=== PATIENT | female | born 1955 | race Caucasian/White ===

== ENCOUNTER → 2018-04-23 15:26 | Outpatient (CLI) | payer MEDICARE, SELFPAY ==
--- NOTE | 2018-04-23 15:32 | NVE_ITS ---
Venous Exam Indications: 729.5 Pain in limb. IMPRESSIONS 1. There is no evidence of significant reflux. 2. No evidence of deep or superficial vein thrombosis involving the veins of the left upper extremity Left upper extremity venous duplex. Doppler flow study including spectral analysis, color and moura scale imaging. Location: Vascular laboratory. Patient status: Outpatient. Incidental findings: A cyst/mass is noted incidentally on the left antecubital area. consistent with area of pain Tables: Venous flow and imaging: + + + Location Flow properties + + + Left internal jugular Normal phasicity; spontaneous; compressible + + + Left subclavian Normal phasicity; spontaneous; normal augmentation; compressible + + + Left axillary Normal phasicity; spontaneous; normal augmentation; compressible + + + Left brachial Normal phasicity; spontaneous; normal augmentation; compressible + + + Left cephalic Normal phasicity; spontaneous; normal augmentation; compressible + + + Left basilic Normal phasicity; spontaneous ; normal augmentation; compressible + + + Left radial Compressible + + + Left ulnar Compressible + + + (Report amended ) Electronically signed by: Dakota Fisher [id number]
== END ==
PROVIDERS: PCP Nurse Practitioner; Visit Provider Nurse Practitioner
DX: M79.602 Pain in left arm (principal); M79.89 Other specified soft tissue disorders
CPT/HCPCS: 93971

== ENCOUNTER → 2018-05-09 09:47 | Outpatient (CLI) | payer MEDICARE, SELFPAY ==
--- NOTE | 2018-05-09 09:56 | US_ITS ---
US extremity LT limited HISTORY: Left forearm pain and swelling with possible cystic lesion seen on vascular ultrasound ITS.REASON: LEFT ARM SWELLING ORDERING PHYSICIAN: Yante Daley PATIENT AGE: 63 years COMPARISON: 04/23/2018 FINDINGS: No discrete mass is evident. The area of patient's pain corresponds to muscular tissue. No mass or cyst evident in this region. Normal echogenicity. IMPRESSION: Unremarkable left forearm ultrasound
== END ==
PROVIDERS: PCP Family Medicine; Visit Provider Nurse Practitioner
DX: M79.89 Other specified soft tissue disorders (principal)
CPT/HCPCS: 76882

== ENCOUNTER 2024-09-06 17:13 | Emergency (ER) | payer MEDICARE, SELFPAY ==
--- NOTE | 2024-09-06 17:13 | PC.NURSE ---
Citlaly Barber APRN at bedside
--- NOTE | 2024-09-06 17:19 | ECG_ITS ---
APPROVED REPORT Exam: Resting ECG HR:94 bpm ECG Measurements Heart Rate 94 AXES OR 169 P 67 QRSd 77 QRS -72 QT 325 T 65 QTc 377 Conclusion SINUS RHYTHM PATTERN CONSISTENT WITH PULMONARY DISEASE LEFT ANTERIOR FASCICULAR BLOCK [QRS AXIS <= -45, QR IN I, RS IN II] No acute STEMI Electronically signed by : CINDI RIVERA, 09/07/2024 00:46:35
[2024-09-06 17:22] VITALS: BP 122/93; PULSE 94; RESP 14; TEMP 36.5; O2SAT 94; BMI 20.2
--- NOTE | 2024-09-06 17:32 | ED_ITS ---
<Statement entered by Marla Trujillo DO - 09/07/24 00:14> I was consulted by the JIMMY, and we discussed the complexity of the problems being addressed. I approved the treatment and management plan for this patient's care in the emergency department, thus performing a substantive portion of the medical decision making. Marla Trujillo DO Discharge Plan Disposition Patient Disposition: Home, Self-Care Prescriptions Prescriptions: New dicyclomine 10 mg capsule 10 mg PO TID 7 Days Qty: 21 0RF nitrofurantoin monohyd/m-cryst [Macrobid] 100 mg capsule 100 mg PO BID 5 Days Qty: 10 0RF Rx Instructions: must administer with a meal/food No Action ondansetron HCl 4 mg tablet 4 mg PO Q6H PRN (Reason: Nausea) Patient Comments: TAKE 1 TABLET BY MOUTH EVERY 6 HOURS ondansetron HCl 4 mg tablet 4 mg PO Q6 PRN (Reason: Nausea) Patient Comments: TAKE 1 TABLET BY MOUTH EVERY 6 HOURS levothyroxine 75 mcg tablet 75 mcg PO DAILY Patient Comments: TAKE 1 TABLET BY MOUTH every morning on an empty stomach meclizine 25 mg tablet 25 mg PO BID Referrals Follow up/Referrals: Provider,Referral, MD [Referring] - See instructions Activity Restrictions/Add. Instructions Additional Instructions/Restrictions: Today you were evaluated in the emergency department for dizziness and vomiting. Please take your meclizine as prescribed and follow-up with your primary care provider. Your urine appears to be infected, please take the Macrobid for this. We will send your urine off for culture and contact you if anything needs changed. Increase your fluid intake. Please take the Bentyl as directed. Please return to the ED for any worsening of your condition. Clinical Impressions Clinical Impression: Nausea, Acute UTI Instructions Patient Instructions: DI for Nausea -- Adult Print Language Print Language: Tamaz[place] Discharge ED Provider: Marla Trujillo General Adult HPI <Velia Barber APRN - Last Filed: 09/06/24 20:21> General Chief complaint: Dizziness Stated complaint: dizziness/lightheaded x 2weeks Time Seen by Provider: 09/06/24 17:22 Mode of Arrival: EMS Source of Information: Patient Description of Symptoms (Recalled from ER Triage Doc. by RN): Patient presents with [facility]. Per EMS, patient was found on the floor. The patient adamantly denies that she fell. States she placed herself on the floor due to her dizziness. States she has a history of vertigo. States she has Meclizine at home, but was not able to take it today. Endorses nausea. Denies fevers. Denies SOB. Denies CP. States her dizziness feels like the room is spinning and states it feels like my similar episodes. History of Present Illness HPI narrative: Patient is a 69-year-old female who presents to the ED with complaints of dizziness, vomiting and nausea x 1 month. Patient states she was evaluated for this by her PCP approximately 1 month ago and given Zofran and meclizine which she states does help. Related Data Home Medications ?Medication ?Instructions ?Recorded ?Confirmed levothyroxine 75 mcg tablet 75 mcg PO DAILY 09/06/24 09/06/24 meclizine 25 mg tablet 25 mg PO BID 09/06/24 09/06/24 ondansetron HCl 4 mg tablet 4 mg PO Q6 PRN Nausea 09/06/24 09/06/24 ondansetron HCl 4 mg tablet 4 mg PO Q6H PRN Nausea 09/06/24 09/06/24 Previous Rx's ?Medication ?Instructions ?Recorded dicyclomine 10 mg capsule 10 mg PO TID 7 days #21 caps 09/06/24 nitrofurantoin 100 mg PO BID 5 days #10 caps 09/06/24 monohydrate/macrocrystals 100 mg capsule (Macrobid) Allergies Allergy/AdvReac Type Severity Reaction Status Date / Time No Known Allergies Allergy Verified 09/06/24 17:32 PFSH <Velia Barber APRN - Last Filed: 09/06/24 20:21> PFS Disclaimer: The information contained in this section may have been updated after the patient was seen, as this information can be updated by other users. Social History Smoking Status: Never smoker alcohol intake: never current occupational status: unemployed Travel in the last 8 weeks: None <Velia Barber APRN - Last Filed: 09/06/24 20:21> ROS Obtained: Yes Systems reviewed as appropriate & no additional complaints except as documented Physical Exam <Velia Barber APRN - Last Filed: 09/06/24 20:21> General General appearance: alert and in no apparent distress Head Head exam: atraumatic and normocephalic Eye Eye exam: Present normal appearance and PERRL ENT ENT exam: Present normal exam Neck Neck exam: Present normal inspection Chest Chest inspection: Present normal inspection and symmetric chest wall rise; Absent tenderness Respiratory Respiratory exam: Present normal lung sounds bilaterally Cardiovascular Cardiovascular exam: Present regular rate Abdominal Exam Abdominal exam: Present soft and normal bowel sounds; Absent tenderness Extremities Exam Extremities exam: Present normal inspection and full ROM Back Exam Back exam: Present normal inspection and full ROM Neurological Exam Neurological exam: Present alert and oriented X3 Psychiatric Psychiatric exam: Present normal affect and normal mood Skin Skin exam: Present warm and dry Medical Decision Making <Velia Barber APRN - Last Filed: 09/06/24 20:21> Medical Records Screening: Per USPSTF and CDC recommendations, given the prevalence of disease in our region, it is our hospital?s policy to screen for HIV and viral Hepatitis for all patients aged 18 and over and those with ongoing risk factors. Samuel Inquiry Pt receiving controlled substance: No Vital Signs: 09/06/24 17:22 09/06/24 17:36 09/06/24 17:45 Temperature 97.7 F Temperature Source Oral Pulse Rate 75 Pulse Rate [Radial] 94 H Respiratory Rate 14 16 Blood Pressure 105/79 L Blood Pressure [R Arm] 122/93 H Blood Pressure Mean 87 Blood Pressure Mean [R Arm] 102 Blood Pressure Source Blood Pressure Source [R Arm] Automatic Cuff Blood Pressure Position Blood Pressure Position [R Arm] Sitting 02 Sat by Pulse Oximetry 94 L 100 Oxygen Delivery Method Room Air 09/06/24 17:45 09/06/24 19:09 09/06/24 19:39 Temperature 98.2 F Temperature Source Oral Pulse Rate 70 81 74 Pulse Rate [Radial] Respiratory Rate 13 16 20 Blood Pressure 116/63 114/87 Blood Pressure [R Arm] Blood Pressure Mean Blood Pressure Mean [R Arm] Blood Pressure Source Automatic Cuff Blood Pressure Source [R Arm] Blood Pressure Position Sitting Blood Pressure Position [R Arm] 02 Sat by Pulse Oximetry 100 96 Oxygen Delivery Method Room Air Lab Data Lab Results 09/06/24 17:13: WBC 6.3, RBC 5.83 H, Hgb 13.3, Hct 42.0, MCV 72.0 L, MCH 22.8 L, MCHC 31.7 L, RDW 26.9 H*, Plt Count 694 H, MPV 9.3, Neut % (Auto) 73.1, Lymph % (Auto) 17.8, [place] % (Auto) 7.5, Eos % (Auto) 0.2, Baso % (Auto) 0.6, Neut # (Auto) 4.6, Lymph # (Auto) 1.1, [place] # (Auto) 0.5, Eos # (Auto) 0.0, Baso # (Auto) 0.0, Total Counted 100, Neutrophils % (Manual) 66, Band Neutrophils % 8, Lymphocytes % (Manual) 15, Monocytes % (Manual) 11 H, Platelet Estimate Moderate increase, RBC Morphology Not Reportable, Poikilocytosis 2+, Anisocytosis 2+, Microcytosis 1+, Target Cells 3+, Stomatocytes 2+, Sodium 132 L, Potassium 4.5, Chloride 99, Carbon Dioxide 20 L, Anion Gap 17.5 H, BUN 31 H, Creatinine 0.90, Estimated Creat Clear 40, Estimated GFR 62, Est GFR ( Amer) 75, Glucose 99, Calcium 8.7, Total Bilirubin 1.9 H, AST 67 H, ALT 59, Alkaline Phosphatase 187 H, Total Protein 6.3, Albumin 2.9 L, Globulin 3.4 H, Albumin/Globulin Ratio 0.9 L, Lipase 20 L 09/06/24 18:32: Urine Color Yellow, Urine Appearance Clear, Urine pH 6.0, Ur Specific [place] 1.020, Urine Protein 1+ A, Urine Glucose (UA) Negative, Urine Ketones 1+, Urine Blood Negative, Urine Nitrate Positive A, Urine Bilirubin 2+ A , Urine Urobilinogen 2.0, Ur Leukocyte Esterase Negative, Urine RBC None, Urine WBC 3-5, Ur Squamous Epith Cells Occasional, Urine Bacteria Trace, Hyaline Casts 10-20 09/06/24 17:13 09/06/24 17:13 Orders (Tests/Meds): ED MEDICATIONS Discontinued Medications Generic Name Dose Route Start Last Admin Trade Name Freq PRN Reason Stop Dose Admin Dicyclomine HCl 10 mg 09/06/24 17:28 09/06/24 17:38 Dicyclomine 10mg Capsule PO 09/06/24 17:29 10 mg ONCE ONE Administration Sodium Chloride 500 mls @ 999 mls/hr 09/06/24 17:28 09/06/24 17:39 Sod Chlor 0.9% 1000ml Bag IV 09/06/24 17:58 999 mls/hr .Q31M ONE Administration Meclizine HCl 25 mg 09/06/24 17:28 09/06/24 17:38 Meclizine 25mg Tablet PO 09/06/24 17:29 25 mg ONCE ONE Administration Ondansetron HCl 4 mg 09/06/24 17:28 09/06/24 17:38 Ondansetron 4mg/2ml Vial IV 09/06/24 17:29 4 mg ONCE ONE Administration ORDERS Category Date Time Status CBC w/Auto Diff [Complete Blood Count Auto Diff] Stat Lab 09/06/24 17:13 Completed CMP [Comprehensive Metabolic Panel] Stat Lab 09/06/24 17:13 Completed Lipase Stat Lab 09/06/24 17:13 Completed Urinalysis and Microscopic Stat Lab 09/06/24 18:32 Completed Urine Culture Stat Micro 09/06/24 18:32 Received Medical Decision Narrative: In summary, patient is a 69-year-old female who presents to the ED with complaints of dizziness, vomiting and nausea x 1 month. Patient states she was evaluated for this by her PCP approximately 1 month ago and given Zofran and meclizine which she states does help. Patient did not take her meclizine today. She states that for the past month she has had difficulty even keeping water down. She denies any additional complaints at this time. Denies fever, chills, bodyaches, chest pain, shortness of breath, abdominal pain, dysuria, diarrhea, constipation. Upon initial evaluation patient is alert, oriented and cooperative. She is hemodynamically stable. Her physical exam is unremarkable, abdomen is soft and nontender. Discussed with patient that we will proceed with labs, urinalysis and symptomatically managed with IVF, Zofran and meclizine. CBC unremarkable for leukocytosis, stable H&H. Platelet 694. Sodium 132, anion gap 17.5, total bili 1.9, AST 67. Urinalysis remarkable for protein, positive nitrite and bili, trace bacteria. Discussed with patient that she is dehydrated and should increase fluid intake. Advised her that her urine is most likely infected, although she has no urinary symptoms, concerned that nausea and vomiting could be related to UTI. Will treat with Macrobid, will send culture. Advised patient to take her meclizine as prescribed. Patient remains hemodynamically stable, discussed with her she will need to follow-up with her PCP within 3 to 5 days. We discussed return precautions to the ED and patient verbalized understanding. <Marla Trujillo, DO - Last Filed: 09/06/24 19:45> Vital Signs: 09/06/24 17:22 09/06/24 17:36 09/06/24 17:45 Temperature 97.7 F Temperature Source Oral Pulse Rate 75 Pulse Rate [Radial] 94 H Respiratory Rate 14 16 Blood Pressure 105/79 L Blood Pressure [R Arm] 122/93 H Blood Pressure Mean 87 Blood Pressure Mean [R Arm] 102 Blood Pressure Source Blood Pressure Source [R Arm] Automatic Cuff Blood Pressure Position Blood Pressure Position [R Arm] Sitting 02 Sat by Pulse Oximetry 94 L 100 Oxygen Delivery Method Room Air 09/06/24 17:45 09/06/24 19:09 09/06/24 19:39 Temperature 98.2 F Temperature Source Oral Pulse Rate 70 81 74 Pulse Rate [Radial] Respiratory Rate 13 16 20 Blood Pressure 116/63 114/87 Blood Pressure [R Arm] Blood Pressure Mean Blood Pressure Mean [R Arm] Blood Pressure Source Automatic Cuff Blood Pressure Source [R Arm] Blood Pressure Position Sitting Blood Pressure Position [R Arm] 02 Sat by Pulse Oximetry 100 96 Oxygen Delivery Method Room Air Lab Data Lab Results 09/06/24 17:13: WBC 6.3, RBC 5.83 H, Hgb 13.3, Hct 42.0, MCV 72.0 L, MCH 22.8 L, MCHC 31.7 L, RDW 26.9 H*, Plt Count 694 H, MPV 9.3, Neut % (Auto) 73.1, Lymph % (Auto) 17.8, [place] % (Auto) 7.5, Eos % (Auto) 0.2, Baso % (Auto) 0.6, Neut # (Auto) 4.6, Lymph # (Auto) 1.1, [place] # (Auto) 0.5, Eos # (Auto) 0.0, Baso # (Auto) 0.0, Total Counted 100, Neutrophils % (Manual) 66, Band Neutrophils % 8, Lymphocytes % (Manual) 15, Monocytes % (Manual) 11 H, Platelet Estimate Moderate increase, RBC Morphology Not Reportable, Poikilocytosis 2+, Anisocytosis 2+, Microcytosis 1+, Target Cells 3+, Stomatocytes 2+, Sodium 132 L, Potassium 4.5, Chloride 99, Carbon Dioxide 20 L, Anion Gap 17.5 H, BUN 31 H, Creatinine 0.90, Estimated Creat Clear 40, Estimated GFR 62, Est GFR ( Amer) 75, Glucose 99, Calcium 8.7, Total Bilirubin 1.9 H, AST 67 H, ALT 59, Alkaline Phosphatase 187 H, Total Protein 6.3, Albumin 2.9 L, Globulin 3.4 H, Albumin/Globulin Ratio 0.9 L, Lipase 20 L 09/06/24 18:32: Urine Color Yellow, Urine Appearance Clear, Urine pH 6.0, Ur Specific [place] 1.020, Urine Protein 1+ A, Urine Glucose (UA) Negative, Urine Ketones 1+, Urine Blood Negative, Urine Nitrate Positive A, Urine Bilirubin 2+ A , Urine Urobilinogen 2.0, Ur Leukocyte Esterase Negative, Urine RBC None, Urine WBC 3-5, Ur Squamous Epith Cells Occasional, Urine Bacteria Trace, Hyaline Casts 10-20 Orders (Tests/Meds): ED MEDICATIONS Discontinued Medications Generic Name Dose Route Start Last Admin Trade Name Freq PRN Reason Stop Dose Admin Dicyclomine HCl 10 mg 09/06/24 17:28 09/06/24 17:38 Dicyclomine 10mg Capsule PO 09/06/24 17:29 10 mg ONCE ONE Administration Sodium Chloride 500 mls @ 999 mls/hr 09/06/24 17:28 09/06/24 17:39 Sod Chlor 0.9% 1000ml Bag IV 09/06/24 17:58 999 mls/hr .Q31M ONE Administration Meclizine HCl 25 mg 09/06/24 17:28 09/06/24 17:38 Meclizine 25mg Tablet PO 09/06/24 17:29 25 mg ONCE ONE Administration Ondansetron HCl 4 mg 09/06/24 17:28 09/06/24 17:38 Ondansetron 4mg/2ml Vial IV 09/06/24 17:29 4 mg ONCE ONE Administration ORDERS Category Date Time Status CBC w/Auto Diff [Complete Blood Count Auto Diff] Stat Lab 09/06/24 17:13 Completed CMP [Comprehensive Metabolic Panel] Stat Lab 09/06/24 17:13 Completed Lipase Stat Lab 09/06/24 17:13 Completed Urinalysis and Microscopic Stat Lab 09/06/24 18:32 Completed Urine Culture Stat Micro 09/06/24 18:32 Received ECG Data Tracing #1: I reviewed this ECG and interpreted as documented below: Normal sinus rhythm with a ventricular of [address] changes concerning for ischemia ECG initial impression date: 09/06/24 ECG initial impression time: 17:20 Critical Care <Velia Barber APRN - Last Filed: 09/06/24 20:21> Critical Care Time Critical Care Time: No
[2024-09-06 17:36] VITALS: PULSE 75; RESP 16; O2SAT 100
[2024-09-06 17:37] LABS: Albumin Level 2.9 g/dl (3.5-5.0); Chloride 99 mmol/L (98-107); Potassium 4.5 mmoL/L (3.5-5.1); Sodium 132 mmol/L (136-145)
[2024-09-06] MEDS: ONDANSETRON 4MG/2ML VIAL 4 MG IV (17:38)
[2024-09-06] MEDS: DICYCLOMINE 10MG CAPSULE 10 MG PO (17:38)
[2024-09-06] MEDS: MECLIZINE 25MG TABLET 25 MG PO (17:38)
[2024-09-06 17:39] LABS: Basophils % 0.6 % (0.1-2.0); Eosinophils % 0.2 % (0.1-12.0); Hemoglobin 13.3 g/dL (12.2-16.2); Lymphocytes # 1.1 K/mm3 (0.7-4.5); Lymphocytes % 17.8 % (10-50); Mean Corpuscular HGB Conc 31.7 g/dL (31.8-35.4); Mean Corpuscular Hemoglobin 22.8 pg (27.0-31.2); Mean Platelet Volume 9.3 fl (7.4-10.4); Monocytes # 0.5 K/mm3 (0.1-1.0); Monocytes % 7.5 % (1.7-9.3); Neutrophils # 4.6 K/mm3 (1.8-7.8); Neutrophils % 73.1 % (37.0-80.0); Nucleated Red Blood Cells # 0 10^3/uL; Nucleated Red Blood Cells % 0 %; Platelet Count 694 K/mm3 (142-424); Red Blood Count 5.83 M/mm3 (4.20-5.40); Red Cell Distribution Width 26.9 % (11.5-17.5); Red Cell Distribution Width-SD 64.4 fL; White Blood Count 6.3 K/mm3 (4.8-10.8)
[2024-09-06] MEDS: 0.9 % SODIUM CHLORIDE 1000ML 500 ML 999 ML IV (17:39)
[2024-09-06 17:40] LABS: Alanine Aminotransferase 59 U/L (12-78); Albumin/Globulin Ratio 0.9 (1.1-1.8); Alkaline Phosphatase 187 U/L (38-126); Anion Gap 17.5 mEq/L (5-15); Aspartate Amino Transferase 67 U/L (14-36); Bilirubin,Total 1.9 mg/dl (0.2-1.3); Blood Urea Nitrogen 31 mg/dl (7-17); Carbon Dioxide 20 mmol/L (22.0-30.0); Creatinine Clearance Estimated 40 mL/min (50-200); Estimated Glomerular Filt Rate 62 ml/min (>60); GFR (African American) 75 ML/MIN (>60); Globulin 3.4 g/dL (1.3-3.2); Lipase 20 U/L (23-300); Total Protein,Serum 6.3 g/dl (6.3-8.2)
[2024-09-06 17:41] LABS: Calcium 8.7 mg/dl (8.4-10.2); Glucose 99 mg/dl (74-100)
[2024-09-06 17:45] VITALS: BP 105/79; PULSE 70; RESP 13; O2SAT 100
[2024-09-06 17:55] LABS: MANUAL DIFFERENTIAL MANUAL DIFFERENTIAL (MANUAL DIFF)
--- NOTE | 2024-09-06 18:12 | PC.NURSE ---
Patient states her dizziness has subsided. Patient ambulated x2 contact guard to restroom. senior geotechnical engineer assisting patient in restroom.
[2024-09-06 18:19] LABS: Neutrophils % 66 % (42-76); Total Cells Counted 100
[2024-09-06 18:20] LABS: Anisocytosis 2+; Band Neutrophils % 8 (0-8); Lymphocytes % 15 % (10-50); Monocytes % 11 % (2-9); Platelet Estimate Moderate Increase
[2024-09-06 18:21] LABS: Microcytosis 1+; Poikilocytosis 2+; Stomatocytes 2+; Target Cells 3+
[2024-09-06 18:35] LABS: Microscopic, Urine URINE MICROSCOPIC (MICROSCOPIC)
[2024-09-06 18:39] LABS: Appearance,Urine CLEAR (Clear); Blood, Urine Negative (Negative); Color,Urine YELLOW (Yellow); Glucose,Urine (UA) Negative (Negative); Ketones,Urine 1+ (Negative); Leukocyte Esterase,Urine Negative (Negative); Nitrate,Urine POSITIVE (Negative); Protein,Urine 1+ (Negative)
[2024-09-06 18:59] LABS: Bilirubin,Urine 2+ (Negative)
[2024-09-06 19:00] LABS: Bacteria,Urine Trace /lpf; Squamous Epithelial Cell,Urine Occasional #/hpf (0-5)
[2024-09-06 19:09] VITALS: BP 116/63; PULSE 81; RESP 16; O2SAT 96
--- NOTE | 2024-09-06 19:17 | PC.NURSE ---
Report received from López RN Pt resting quietly in bed Skin pink warm and dry Resp full and easy Speech clear and appropriate IV site without redness or edema
[2024-09-06 19:39] VITALS: BP 114/87; PULSE 74; RESP 20; TEMP 36.8; O2SAT 97
== END 2024-09-06 19:40 | disposition home or self-care (01) ==
PROVIDERS: Nurse Practitioner; Emergency Provider Emergency Medicine; PCP Nurse Practitioner
DX: N39.0 Urinary tract infection, site not specified (principal); E87.1 Hypo-osmolality and hyponatremia; R42 Dizziness and giddiness; R11.0 Nausea
CPT/HCPCS: 80053; 81001; 83690; 85007; 85025; 85027; 87086; 93005; 96374; 99284; J2405; J7030

== ENCOUNTER 2024-09-11 11:49 | Inpatient (IN) | payer MEDICARE, SELFPAY ==
[2024-09-11] VITALS (11 sets, daily range): BP systolic 94–139; BP diastolic 67–91; PULSE 90–123; RESP 13–24; TEMP 36.6–37; O2SAT 93–100; BMI 28.3; BMI 29.7
--- NOTE | 2024-09-11 11:57 | ECG_ITS ---
APPROVED REPORT Exam: Resting ECG HR:120 bpm ECG Measurements Heart Rate 120 AXES ME 170 P 62 QRSd 78 QRS 142 QT 305 T 58 QTc 377 Conclusion Sinus tachycardia Poor R wave progression in precordial leads Electronically signed by : JOHNATHAN VITALE, 09/11/2024 14:07:42
--- NOTE | 2024-09-11 12:07 | PC.NURSE ---
DR VITALE AT BEDSIDE
[2024-09-11 12:10] LABS: Basophils # 0.1 K/mm3 (0-0.2); Eosinophils % 0.1 % (0.1-12.0); Hematocrit 41.9 % (37.0-47.0); Hemoglobin 12.8 g/dL (12.2-16.2); Lymphocytes % 13.9 % (10-50); Mean Corpuscular HGB Conc 30.5 g/dL (31.8-35.4); Mean Corpuscular Hemoglobin 23.8 pg (27.0-31.2); Mean Platelet Volume 9.6 fl (7.4-10.4); Monocytes # 0.3 K/mm3 (0.1-1.0); Monocytes % 4.5 % (1.7-9.3); Neutrophils # 5.8 K/mm3 (1.8-7.8); Neutrophils % 79.5 % (37.0-80.0); Nucleated Red Blood Cells # 0.07 10^3/uL; Platelet Count 316 K/mm3 (142-424); Red Blood Count 5.37 M/mm3 (4.20-5.40); Red Cell Distribution Width 24.6 % (11.5-17.5); Red Cell Distribution Width-SD 63.4 fL; White Blood Count 7.3 K/mm3 (4.8-10.8)
--- NOTE | 2024-09-11 12:17 | HMH.EDGENADL ---
Discharge Plan Disposition Patient Disposition: Admitted Chief Complaint: Weakness Prescriptions Prescriptions: No Action ondansetron HCl 4 mg tablet 4 mg PO Q6H PRN (Reason: Nausea) Patient Comments: TAKE 1 TABLET BY MOUTH EVERY 6 HOURS ondansetron HCl 4 mg tablet 4 mg PO Q6 PRN (Reason: Nausea) Patient Comments: TAKE 1 TABLET BY MOUTH EVERY 6 HOURS levothyroxine 75 mcg tablet 75 mcg PO DAILY Patient Comments: TAKE 1 TABLET BY MOUTH every morning on an empty stomach meclizine 25 mg tablet 25 mg PO BID dicyclomine 10 mg capsule 10 mg PO TID 7 Days Qty: 21 0RF nitrofurantoin monohyd/m-cryst [Macrobid] 100 mg capsule 100 mg PO BID 5 Days Qty: 10 0RF Rx Instructions: must administer with a meal/food Referrals Follow up/Referrals: Marlyn Daley APRN [Primary Care Provider] - See instructions Clinical Impressions Clinical Impression: Complete obstruction of small intestine, Sepsis, Acute dehydration, Urinary tract infection Print Language Print Language: Jordanian Discharge ED Provider: Surinder Jerry General Adult HPI General Chief complaint: Weakness Stated complaint: weakness Time Seen by Provider: 09/11/24 11:54 Mode of Arrival: EMS Source of Information: Patient and EMS Description of Symptoms (Recalled from ER Triage Doc. by RN): Patient presents to ED with increased weakness. Patient states she was dx with an UTI on Saturday and finished up her antibiotics today. Today patient was walking to the couch and states her legs gave out on her and states she did not fall or hit her head. History of Present Illness HPI narrative: Please note that above description of symptoms, in this electronic medical record under categorization of recalled from ER triage doctor by RN are reflective of an initial nursing assessment, however, is not reflective of my full history and physical exam that was personally taken and clarified. Consequentially, this preceding description of symptoms, which may include the patient's categorized chief complaint in the EMR, do not reflect my personal clinical impression, and the ultimate description of history of present illness and patient stated complaints should be deferred to this section of the note. Unless stated otherwise or congruent with this section of the note, additional signs, symptoms, or incongruence should be interpreted as inaccurate with my clinical impression. Related Data Home Medications ?Medication ?Instructions ?Recorded ?Confirmed levothyroxine 75 mcg tablet 75 mcg PO DAILY 09/06/24 09/06/24 meclizine 25 mg tablet 25 mg PO BID 09/06/24 09/06/24 ondansetron HCl 4 mg tablet 4 mg PO Q6 PRN Nausea 09/06/24 09/06/24 ondansetron HCl 4 mg tablet 4 mg PO Q6H PRN Nausea 09/06/24 09/06/24 Previous Rx's ?Medication ?Instructions ?Recorded dicyclomine 10 mg capsule 10 mg PO TID 7 days #21 caps 09/06/24 nitrofurantoin 100 mg PO BID 5 days #10 caps 09/06/24 monohydrate/macrocrystals 100 mg capsule (Macrobid) Allergies Allergy/AdvReac Type Severity Reaction Status Date / Time No Known Allergies Allergy Verified 09/06/24 17:32 [facility] Disclaimer: The information contained in this section may have been updated after the patient was seen, as this information can be updated by other users. Social History (Updated 09/06/24 @ 20:21 by Velia Barber APRN) Smoking Status: Never smoker alcohol intake: never current occupational status: unemployed Travel in the last 8 weeks: None Have you lived/traveled outside [place] in past 30 days?: No Contact w/someone who lives/traveled outside US past 30 days?: No Exposure to someone with infectious disease in past 14 days?: No Do you have a fever (greater than 100.4 F or 38 C)?: No Have you tested positive for COVID-19: No Exposed to someone with COVID-19 in past 14 days?: No Do you have a sore throat?: No Do you have a cough?: No Do you have any weakness?: Yes Do you have any diarrhea?: No Are you experiencing any unusual bleeding?: No Do you have any muscle aches/pain?: No Do you have any abdominal pain?: No Are you experiencing loss of taste or smell?: No ROS Obtained: Yes All systems reviewed & no additional complaints except as documented Physical Exam General General appearance: alert Comment: Ill-appearing Head Head exam: atraumatic and normocephalic Eye Eye exam: Present normal appearance, PERRL and EOMI ENT ENT exam: Present mucous membranes dry Neck Neck exam: Present normal inspection, full ROM and trachea midline Respiratory Respiratory exam: Present normal lung sounds bilaterally; Absent respiratory distress, wheezes, stridor, accessory muscle use or prolonged expiratory phase Cardiovascular Cardiovascular exam: Present normal rhythm, tachycardia and other (Pulses equal symmetric in upper and lower extremities) Abdominal Exam Abdominal exam: Present soft; Absent distention, tenderness, guarding, rebound, rigidity or pulsatile mass Extremities Exam Extremities exam: Present edema (Bilateral, minimal) Neurological Exam Neurological exam: Present alert, oriented X3 and CN II-XII intact; Absent motor sensory deficit Skin Skin exam: Present warm, dry and pallor; Absent diaphoresis or erythema Medical Decision Making Medical Records Medical records reviewed: Yes I reviewed the patient's medical records. Screening: Per USPSTF and CDC recommendations, given the prevalence of disease in our region, it is our hospital?s policy to screen for HIV and viral Hepatitis for all patients aged 18 and over and those with ongoing risk factors. Samuel Inquiry Pt receiving controlled substance: No Samuel was queried for this patient: No Vital Signs: 09/11/24 11:54 09/11/24 11:55 09/11/24 12:06 Temperature 98.6 F Temperature Source Oral Pulse Rate 123 H 119 H Pulse Rate [Right Brachial] 121 H Respiratory Rate 24 20 17 Blood Pressure 94/67 L 99/71 L Blood Pressure [Right Arm] 94/67 L Blood Pressure Mean 75 75 Blood Pressure Mean [Right Arm] 76 Blood Pressure Source [Right Arm] Automatic Cuff Blood Pressure Position [Right Arm] Supine 02 Sat by Pulse Oximetry 97 97 93 L Oxygen Delivery Method Room Air 09/11/24 12:37 09/11/24 12:46 09/11/24 13:01 Temperature Temperature Source Pulse Rate 97 H 93 H 90 Pulse Rate [Right Brachial] Respiratory Rate 13 20 19 Blood Pressure 127/79 108/87 L 132/86 Blood Pressure [Right Arm] Blood Pressure Mean 92 91 Blood Pressure Mean [Right Arm] Blood Pressure Source [Right Arm] Blood Pressure Position [Right Arm] 02 Sat by Pulse Oximetry 97 95 99 Oxygen Delivery Method 09/11/24 13:30 09/11/24 14:00 Temperature Temperature Source Pulse Rate 91 H 99 H Pulse Rate [Right Brachial] Respiratory Rate 15 16 Blood Pressure 113/91 H 139/84 Blood Pressure [Right Arm] Blood Pressure Mean 94 99 Blood Pressure Mean [Right Arm] Blood Pressure Source [Right Arm] Blood Pressure Position [Right Arm] 02 Sat by Pulse Oximetry 93 L 98 Oxygen Delivery Method Lab Data Lab Results 09/11/24 12:01: WBC 7.3, RBC 5.37, Hgb 12.8, Hct 41.9, MCV 78.0 L, MCH 23.8 L, MCHC 30.5 L, RDW 24.6 H, Plt Count 316, MPV 9.6, Neut % (Auto) 79.5, Lymph % (Auto) 13.9, [place] % (Auto) 4.5, Eos % (Auto) 0.1, Baso % (Auto) 1.0, Neut # (Auto) 5.8, Lymph # (Auto) 1.0, [place] # (Auto) 0.3, Eos # (Auto) 0.0, Baso # (Auto) 0.1, Sodium 132 L, Potassium 4.6, Chloride 100, Carbon Dioxide 23, Anion Gap 13.6, BUN 27 H, Creatinine 1.00, Estimated Creat Clear 55, Estimated GFR 55 L, Est GFR ( Amer) 66, Glucose 111 H, Lactate 1.6, Calcium 8.5, Magnesium 1.8, Total Bilirubin 2.7 H, AST 115 H, ALT 102 H, Alkaline Phosphatase 203 H, Total Creatine Kinase 28 L, Troponin I < 0.01, C-Reactive Protein 55.4 H, Total Protein 6.1 L, Albumin 2.6 L, Globulin 3.5 H, Albumin/Globulin Ratio 0.7 L, TSH 0.35 L, Thyroxine (T4) 4.2 L 09/11/24 12:20: Urine Color Yellow, Urine Appearance Clear, Urine pH 6.0, Ur Specific [place] 1.020, Urine Protein Trace, Urine Glucose (UA) Negative, Urine Ketones 1+, Urine Blood Negative, Urine Nitrate Positive A, Urine Bilirubin 2+ A, Urine Urobilinogen 4.0, Ur Leukocyte Esterase Negative, Urine RBC None, Urine WBC Occasional, Ur Squamous Epith Cells Occasional, Urine Bacteria Trace 09/11/24 12:01 09/11/24 12:01 Orders (Tests/Meds): ED MEDICATIONS Generic Name Dose Route Start Last Admin Trade Name Freq PRN Reason Stop Dose Admin Vancomycin HCl 1,250 mg/ 250 mls @ 125 mls/hr 09/11/24 12:30 09/11/24 13:54 Sodium Chloride IV 09/11/24 14:29 Not Given ONCE ONE Sodium Chloride 10 ml 09/11/24 12:31 09/11/24 12:32 Sodium Chloride 0.9% 10ml Syr (Rad Only) IV 10/11/24 12:30 10 ml NEEDED PRN Administration Maintain IV Site Discontinued Medications Generic Name Dose Route Start Last Admin Trade Name Freq PRN Reason Stop Dose Admin Sodium Chloride 1,000 mls @ 999 mls/hr 09/11/24 12:08 09/11/24 12:32 Sod Chlor 0.9% 1000ml Bag IV 09/11/24 13:08 999 mls/hr .Q1H1M ONE Administration Piperacillin Sod/Tazobactam 100 mls @ 200 mls/hr 09/11/24 12:30 09/11/24 12:22 Sod 4.5 gm/ Sodium Chloride IV 09/11/24 12:59 200 mls/hr ONCE ONE Administration Sodium Chloride 1,430 mls @ 715 mls/hr 09/11/24 12:14 09/11/24 13:53 Sod Chlor 0.9% 1000ml Bag 30 ml/kg infuse over 2 hr (1430 ml) 09/11/24 14:13 715 mls/hr IV Administration .Q2H ONE Vancomycin/PEG/NA[place]/Lysine/Water 1.25 gm in 250 mls @ 125 mls/hr 09/11/24 12:30 09/11/24 12:22 Vancomycin 1.25gm/250ml (Peg) Premix IV 09/11/24 14:29 125 mls/hr ONCE ONE Administration Iopamidol 75 ml 09/11/24 12:31 09/11/24 12:32 Iopamidol-370 (76%);100ml Bottle IV 09/11/24 12:32 75 ml ONCE ONE Administration Miscellaneous 1 each 09/11/24 12:15 09/11/24 13:53 Vancomycin Consult Request NOTAPPLIC 10/11/24 12:14 1 each CONSULT PHARMACY ZOE Administration Ondansetron HCl 4 mg 09/11/24 12:18 09/11/24 12:19 Ondansetron 4mg/2ml Vial IV 09/11/24 12:19 4 mg ONCE ONE Administration ORDERS Category Date Time Status CT abdomen pelvis w con Stat Cat Scan 09/11/24 12:19 Completed CXR --portable [XR chest portable] Stat Exams 09/11/24 13:52 Taken POCUS Point of Care (ER Only) Stat Exams 09/11/24 12:51 Completed CK [Creatine Kinase] Stat Lab 09/11/24 12:01 Completed CRP [C-Reactive Protein] Stat Lab 09/11/24 12:01 Completed Complete Blood Count Auto Diff Stat Lab 09/11/24 12:01 Completed Comprehensive Metabolic Panel Stat Lab 09/11/24 12:01 Completed Lactic Acid Stat Lab 09/11/24 12:01 Completed Magnesium Stat Lab 09/11/24 12:01 Completed T4 (Thyroxine) Stat Lab 09/11/24 12:01 Completed TSH [Thyroid Stimulating Hormone] Stat Lab 09/11/24 12:01 Completed Trop I [Troponin I] Stat Lab 09/11/24 12:01 Completed Troponin I Q3H Lab 09/11/24 15:00 Ordered Troponin I Q3H Lab 09/11/24 18:00 Ordered Urinalysis and Microscopic Stat Lab 09/11/24 12:20 Completed Blood Culture Stat Micro 09/11/24 12:44 Received Urine Culture Stat Micro 09/11/24 12:20 Received Medical Decision Narrative: 69-year-old history of hypothyroidism, recent urinary tract infection presenting with general malaise. She states that she was diagnosed with UTI few days ago, on her last day of antibiotics today, but has been progressively weak throughout the past few days. Family at bedside stating that she usually ambulates and gets around on her own. She was full assist with 2 different people today, unable to support her own weight due to generalized weakness. Patient denies unilateral weakness, chest pain, shortness of breath, cough, fevers or chills, but just states that she feels so weak she cannot do anything. Also states that she has been thirsty. She has been vomiting countless times and has been nonbloody, nonbilious. She is having mild abdominal pain that is epigastric and does not radiate, currently not present. Last bowel movement was a couple days prior to this, which is abnormal for her. History was obtained via conversation with patient and family. On arrival, patient hemodynamically stable, alert, oriented x4, appropriate, GCS 15, moving all extremities spontaneously, pupils equal and reactive to light. Full physical exam performed and significant for pale, ill-appearing female who is tachycardic, but no acute distress. She speaking full sentences and currently has no complaints other than feeling unwell. Lungs are clear, cardiac exam with tachycardia, otherwise normal. Minimal lower extremity bilateral pitting edema. Abdomen soft, nontender, nondistended on my exam. No overlying skin changes. Differential includes sepsis, pneumonia, urinary tract infection, small bowel obstruction, ACS, AK, septic nephrolithiasis, rhabdomyolysis, among others Patient placed on continuous cardiac monitoring and continuous pulse ox with initial blood pressure 94/67, heart rate 121, saturation 97% on room air. Independent interpretation of EKG shows sinus tachycardia 120 bpm with CA 170, QRS 78, QTc 377. No acute ischemic changes. Patient does have poor R wave progression in precordial leads. Patient was given sepsis fluid bolus, vancomycin and Zosyn for symptomatic management and correction of underlying abnormalities. Workup independently interpreted and significant for normal white blood cell count. Mild hyponatremia, normal kidney function. LFTs are all elevated with total bilirubin 2.7, AST 115, ALT 102, alk phosphatase 203. Troponin negative. Patient's urinalysis nitrate positive, covered by Zosyn. On independent interpretation of imaging, patient has small bowel obstruction with what looks like transition point in the pelvis. See radiology read for full review of final results. On reevaluation, patient states she is feeling much better. Her color is much better, blood pressure improved, heart rate improved and clinically looks well. Bedside [id number] ultrasound was performed and gallbladder is distended mildly, but no pericholecystic fluid, no evidence of stones or ductal dilation. NG tube was placed. On reevaluation, patient tolerated NG well. Fluid returning []. Tissue perfusion reassessment performed within 3 hours, patient mentating, following commands, good capillary refill and hemodynamically stable. Given patient presentation, workup, history, this most likely represents sepsis without septic shock in the setting of nitrate positive UTI, dehydration and volume depletion in the setting of small bowel obstruction. Hospitalist was contacted and case was discussed at length, patient to be admitted. Because patient high risk for clinical decompensation, deemed appropriate for inpatient admission. Results were relayed to patient who voiced understanding and patient was agreeable to inpatient admission and management. Patient was admitted to the hospital for further definitive management. Roller Bearing Inspector disclaimer Much of this encounter note is an electronic technical systems architect spoken language to printed text. Electronic technical systems architect of the spoken language may permit errors. Although I have reviewed the note, some errors may still exist. Procedures Limited Ultrasound Indication:: Limited RUQ ultrasound Indication: Abdominal pain, bloating, elevated LFTs Identified structures: -Gallbladder -Gallbladder wall -Common bile duct -Liver Findings: Sonographic Roblero sign: Absent Gallstones: Absent Sludge: Absent Pericholecystic fluid: Absent Maximal GB wall thickness (mm) (normal is </= 3mm): Normal Common bile duct width (mm) (normal is </= 6mm): Normal Gallbladder width (cm) (normal is < 4cm): Normal Gallbladder length (cm) (normal is < 10cm): Greater than 11 cm, abnormal Impression: Mildly distended gallbladder, no secondary signs of cholecystitis. No evidence of cholelithiasis. Common bile duct normal Images were saved to permanent archive The study was technically adequate CPT 62350-37 This study was performed by me, and I personally interpreted all images/videos. Based on my clinical judgement, these images were adequate and did not necessitate further imaging. Critical Care Critical Care Time Critical Care Time: No
[2024-09-11] MEDS: ONDANSETRON 4MG/2ML VIAL 4 MG IV ×2 (12:19→23:49)
--- NOTE | 2024-09-11 12:19 | CT_ITS ---
FINAL REPORT TECHNIQUE: After the administration of intravenous contrast, axial images were obtained through the abdomen and pelvis by computed tomography. The study was performed with techniques to keep radiation dose as low as reasonably achievable, (ALARA). Individual dose reduction techniques using automated exposure control or adjustment of mA and/or kV according to the patient's size were employed. CLINICAL HISTORY: epigastric pain, vomiting, no BM FINDINGS: Abdomen: There is a scarring at the lung bases. There are advanced changes of fatty infiltration of the liver. The gallbladder is distended. The spleen, pancreas, and adrenal glands appear unremarkable. There is a dominant cyst in the superior pole of the left kidney measuring 4.9 x 4.2 cm. The right kidney is unremarkable. There is no hydronephrosis. The aorta is normal in caliber. There are multiple, fluid-filled loops of small bowel measuring up to 4.2 cm in diameter, proximally. The distal small bowel is decompressed. An exact point of transition point is not well-seen but is favored to reside in the mid pelvis. Pelvis: The appendix is not clearly identified. The urinary bladder is unremarkable. The uterus lies eccentric to the right. There is a small amount of free fluid. There is no adenopathy. IMPRESSION: Distended proximal and mid small bowel with decompressed distal small bowel consistent with high-grade partial or complete bowel obstruction. The transition zone is likely in the mid pelvis. Reviewed, Interpreted and Dictated by Deepak Krueger MD Transcribed by Maribeth Araujo Authenticated and [facility]
[2024-09-11 12:21] LABS: Albumin Level 2.6 g/dl (3.5-5.0); Chloride 100 mmol/L (98-107)
[2024-09-11 12:22] LABS: Potassium 4.6 mmoL/L (3.5-5.1); Sodium 132 mmol/L (136-145)
[2024-09-11] MEDS: VANCOMYCIN/WATER FOR INJ (PEG) 1.25 GM/250 ML PIGGYBACK IV (12:22)
[2024-09-11] MEDS: PIPERACILLIN/TAZO 4.5 GM in 0.9 % SODIUM CHLORIDE 100 ML IV (12:22)
[2024-09-11 12:24] LABS: Alanine Aminotransferase 102 U/L (12-78); Anion Gap 13.6 mEq/L (5-15); Aspartate Amino Transferase 115 U/L (14-36); Bilirubin,Total 2.7 mg/dl (0.2-1.3); Blood Urea Nitrogen 27 mg/dl (7-17); Carbon Dioxide 23 mmol/L (22.0-30.0); Creatinine Clearance Estimated 55 mL/min (50-200); Estimated Glomerular Filt Rate 55 ml/min (>60); GFR (African American) 66 ML/MIN (>60)
[2024-09-11 12:24] LABS: Microscopic, Urine URINE MICROSCOPIC (MICROSCOPIC)
[2024-09-11 12:25] LABS: Albumin/Globulin Ratio 0.7 (1.1-1.8); Alkaline Phosphatase 203 U/L (38-126); Calcium 8.5 mg/dl (8.4-10.2); Creatine Kinase 28 U/L (30-135); Globulin 3.5 g/dL (1.3-3.2); Glucose 111 mg/dl (74-100); Magnesium 1.8 mg/dl (1.6-2.3); Total Protein,Serum 6.1 g/dl (6.3-8.2)
[2024-09-11 12:26] LABS: Appearance,Urine CLEAR (Clear); Blood, Urine Negative (Negative); Color,Urine YELLOW (Yellow); Glucose,Urine (UA) Negative (Negative); Ketones,Urine 1+ (Negative); Leukocyte Esterase,Urine Negative (Negative); Nitrate,Urine POSITIVE (Negative); Protein,Urine TRACE (Negative)
--- NOTE | 2024-09-11 12:26 | PC.NURSE ---
pt gone to CT at this time
[2024-09-11 12:29] LABS: Lactic Acid 1.6 mmol/L (0.7-2.1)
[2024-09-11] MEDS: 0.9 % SODIUM CHLORIDE 1000ML 1,000 ML 999 ML IV (12:32)
[2024-09-11] MEDS: IOPAMIDOL-370 (76%);100ML BOTTLE 75 ML IV (12:32)
[2024-09-11] MEDS: SODIUM CHLORIDE 0.9% 10ML SYR (RAD ONLY) 10 ML IV (12:32)
[2024-09-11 12:34] LABS: Bacteria,Urine Trace /lpf; Bilirubin,Urine 2+ (Negative); Squamous Epithelial Cell,Urine Occasional #/hpf (0-5); WBC,Urine Occasional #/hpf (0-3)
--- NOTE | 2024-09-11 12:35 | PC.NURSE ---
pt back in room at this time
[2024-09-11 12:40] LABS: C-Reactive Protein 55.4 mg/L (0-4)
[2024-09-11 12:41] LABS: Troponin I < 0.01 ng/ml (0.00-0.034)
[2024-09-11 12:45] LABS: T4 (Thyroxine) 4.2 ug/dl (5.53-11.0)
--- NOTE | 2024-09-11 12:48 | PC.NURSE ---
1243hrs- Preet started at this time.
--- NOTE | 2024-09-11 12:53 | PC.NURSE ---
1255hrs- Zosyn completed and now placed on Vancomycin as per the MAR at 125mL/hr with VBTI 250mL's
[2024-09-11 12:59] LABS: Thyroid Stimulating Hormone 0.35 uIU/mL (0.465-4.68)
--- NOTE | 2024-09-11 13:52 | XR_ITS ---
FINAL REPORT CLINICAL HISTORY: post ng tube confirmation FINDINGS: A single view of the chest was obtained. The heart is normal in size. The mediastinum is unremarkable. There is linear scarring in the perihilar region and both lung bases. The lungs are otherwise clear. There is no pleural effusion. There is no pneumothorax. There is no acute osseous abnormality. And nasogastric tube is present and appears to be looped inside a moderate hiatal hernia. IMPRESSION: NG tube appears looped inside a moderate hiatal hernia. No acute pulmonary abnormality. Reviewed, Interpreted and Dictated by Deepak Krueger MD Transcribed by Maribeth Araujo Authenticated and [facility] [place] [place]
[2024-09-11] MEDS: VANCOMYCIN CONSULT REQUEST 1 EACH NOTAPPLIC (13:53)
[2024-09-11] MEDS: 0.9 % SODIUM CHLORIDE 1000ML 1,430 ML 715 ML IV (13:53)
--- NOTE | 2024-09-11 14:35 | PC.NURSE ---
DR VITALE SPEAKING WITH HOSPITALIST FOR ADMISSION
--- NOTE | 2024-09-11 14:38 | HMH.PHAINT1 ---
Pharmacy Intervention Comments: MEDICATION RECONCILIATION COMPLETED ON PATIENT USING EXTERNAL FILL HISTORY FROM PHARMACY. -AJRAD CRAWFORD, REJID
--- NOTE | 2024-09-11 14:44 | PC.NURSE ---
BUSINESS PROCESS REPRESENTATIVE NOTIFIED OF ADMISSION
--- NOTE | 2024-09-11 14:44 | EXP.HP ---
History of Present Illness *Admission Date: 09/11/24 *Reason for visit:: Nausea, vomiting abdominal pain *History of present illness: Ms. Smith is a 69-year-old female with history of hypothyroid and recent UTI. States over the past week she has been having increased nausea and upset stomach. Increased weakness over the past few days. Diagnosed with a UTI last Saturday and was due to finish her antibiotics today. Last bowel movement 2 days ago. Increased nausea and vomiting over the past 24 to 48 hours. [place] weak today at home walking to the couch but did not fall or hit her head. On presentation to the ER, found to have normal white count 7.3. Imaging showing concern for small bowel obstruction on CT. Kidney function stable. Liver enzymes abnormal however with bilirubin of 2.7, and AST ALT of 115 and 102 respectively. Afebrile. NG placed in the ED with improvement in abdominal pain and distention. Medicine consulted for admission and further management. On arrival to the floor, states she is feeling somewhat better. Stable on room air. Having bilious output in NG. Reports history of appendectomy when she was significantly younger. No other abdominal surgeries. No abdominal trauma. [facility] Disclaimer: The information contained in this section may have been updated after the patient was seen, as this information can be updated by other users. Surgical History Hx of partial thyroidectomy History of surgery on lower extremity Hx of appendectomy Family History Other Lung cancer Renal failure Social History Smoking Status: Never smoker alcohol intake: never current occupational status: unemployed Travel in the last 8 weeks: None Have you lived/traveled outside US in past 30 days?: No Contact w/someone who lives/traveled outside US past 30 days?: No Exposure to someone with infectious disease in past 14 days?: No Do you have a fever (greater than 100.4 F or 38 C)?: No Have you tested positive for COVID-19: No Exposed to someone with COVID-19 in past 14 days?: No Do you have a sore throat?: No Do you have a cough?: No Do you have any weakness?: Yes Are you experiencing any nausea/vomitting?: Yes Do you have any diarrhea?: No Are you experiencing any unusual bleeding?: No Do you have any muscle aches/pain?: No Do you have any abdominal pain?: No Are you experiencing loss of taste or smell?: No Review of Systems Review of Systems Review of systems (narrative): 14 point review of systems performed, pertinent positives and negatives as per [facility] Meds Home Medications and Allergies Home Medications ?Medication ?Instructions ?Recorded ?Confirmed ?Type dicyclomine 10 mg capsule 10 mg PO TID 7 days #21 caps 09/06/24 09/11/24 Rx levothyroxine 75 mcg tablet 75 mcg PO DAILY 09/06/24 09/11/24 History nitrofurantoin 100 mg PO BID 5 days #10 caps 09/06/24 09/11/24 Rx monohydrate/macrocrystals 100 mg capsule (Macrobid) ondansetron HCl 4 mg tablet 4 mg PO Q6HP PRN Nausea 09/06/24 09/11/24 History New Prescriptions to Start Prescriptions: Allergies Allergy/AdvReac Type Severity Reaction Status Date / Time No Known Allergies Allergy Verified 09/06/24 17:32 Exam Data for Last 24 hours Vital signs and Labs for Last 24 Hours: Temp Pulse Resp BP Pulse Ox O2 Del Method 98.6 F 99 H 16 139/84 98 Room Air 09/11/24 11:55 09/11/24 14:00 09/11/24 14:00 09/11/24 14:00 09/11/24 14:00 09/11/24 11:55 Laboratory Results - last 24 hr 09/11/24 12:01: WBC 7.3, RBC 5.37, Hgb 12.8, Hct 41.9, MCV 78.0 L, MCH 23.8 L, MCHC 30.5 L, RDW 24.6 H, Plt Count 316, MPV 9.6, Neut % (Auto) 79.5, Lymph % (Auto) 13.9, Carbon % (Auto) 4.5, Eos % (Auto) 0.1, Baso % (Auto) 1.0, Neut # (Auto) 5.8, Lymph # (Auto) 1.0, Carbon # (Auto) 0.3, Eos # (Auto) 0.0, Baso # (Auto) 0.1, Sodium 132 L, Potassium 4.6, Chloride 100, Carbon Dioxide 23, Anion Gap 13.6, BUN 27 H, Creatinine 1.00, Estimated Creat Clear 55, Estimated GFR 55 L, Est GFR ( Amer) 66, Glucose 111 H, Lactate 1.6, Calcium 8.5, Magnesium 1.8, Total Bilirubin 2.7 H, AST 115 H, ALT 102 H, Alkaline Phosphatase 203 H, Total Creatine Kinase 28 L, Troponin I < 0.01, C-Reactive Protein 55.4 H, Total Protein 6.1 L, Albumin 2.6 L, Globulin 3.5 H, Albumin/Globulin Ratio 0.7 L, TSH 0.35 L, Thyroxine (T4) 4.2 L 09/11/24 12:20: Urine Color Yellow, Urine Appearance Clear, Urine pH 6.0, Ur Specific [place] 1.020, Urine Protein Trace, Urine Glucose (UA) Negative, Urine Ketones 1+, Urine Blood Negative, Urine Nitrate Positive A, Urine Bilirubin 2+ A, Urine Urobilinogen 4.0, Ur Leukocyte Esterase Negative, Urine RBC None, Urine WBC Occasional, Ur Squamous Epith Cells Occasional, Urine Bacteria Trace I & O for Last 24 hours: Intake & Output 09/08/24 09/09/24 09/10/24 09/11/24 23:59 23:59 23:59 23:59 Weight 68.039 kg Constitutional Constitutional: mild distress, average body habitus and cooperative *Routine HEENT Exam Head: Present normocephalic Eye: Present EOMI and PERRL ENT: Present mucous membranes moist *Routine Neck Exam Neck: Present supple; Absent lymphadenopathy *Routine Respiratory Exam Respiratory: Present CTA bilaterally *Routine Cardiovascular Exam Cardiovascular: Present RRR *Routine Abdominal Exam Abdominal: Present soft, normoactive bowel sounds, tenderness (Minimal nonfocal) and distended; Absent rebound *Routine Rectal Exam Rectal:: deferred *Routine Genitalia Exam Genitalia:: deferred *Routine Extremities Exam Extremities: Absent cyanosis, clubbing or edema *Routine Skin Exam Skin: Present warm; Absent rash *Routine Neurological Exam Neurological: Present alert, oriented X3 and moving all extremities; Absent altered mental status Assessment and Plan *Assessment and plan (1) Sepsis: Status: Acute Category: Medical Code(s): A41.9 - Sepsis, unspecified organism (2) Complete obstruction of small intestine: Status: Acute Category: Medical Code(s): K56.601 - Complete intestinal obstruction, unspecified as to cause (3) Nausea: Status: Acute Category: Medical Code(s): R11.0 - Nausea (4) Acute dehydration: Status: Acute Category: Medical Code(s): E86.0 - Dehydration (5) Urinary tract infection: Status: Acute Category: Medical Code(s): N39.0 - Urinary tract infection, site not specified (6) Acute UTI: Status: Acute Category: Medical Code(s): N39.0 - Urinary tract infection, site not specified (7) Transaminitis: Status: Acute Category: Medical Code(s): R74.01 - Elevation of levels of liver transaminase levels (8) Hypothyroid: Status: Chronic Category: Medical Code(s): E03.9 - Hypothyroidism, unspecified Plan 69-year-old female who presented with nausea and vomiting. Found to have bowel obstruction on CT. NG placed in the ED. Discussed case with ER physician, request admission for further management of bowel obstruction. I agreed to admit for further care. Showing some improvement. Will continue conservative management. Surgery consulted to evaluate the patient in the morning. Problems addressed as follows: Sepsis SBO Nausea and vomiting - Meeting sepsis criteria with tachycardia of 123, respiratory rate of 24, suspected infection with bowel obstruction inflammation of small intestine. - Initiated on Zosyn in the ED, continue 3.375 g every 6 hours - Per my review of CT, has transition point in the small intestines. Suspect infectious or inflammatory process. Continue NG with decompression. - Discussed case with surgeon, he will evaluate in the morning. Continue serial exams. Repeat KUB ordered for the morning to monitor abdominal bowel gas pattern - Continue NG to low wall suction - White count normal at 7.3, hemoglobin 12.8. - Mild dehydration with BUN 27, creatinine 1.0. Sodium 132. Potassium 4.6. Liver enzymes elevated with bilirubin 2.7, AST 115, ALT 102, alk phos 203. Repeat CBC, CMP, magnesium ordered for the morning. - Zofran 4 mg every 6 hours IV nausea Resolving UTI: Was completing course of Macrobid. Zosyn above for coverage. Urinalysis with mild abnormalities. Hypothyroid: Continue levothyroxine 75 mcg daily Full code Lovenox 40 mg subcu daily N.p.o. except ice chips
--- NOTE | 2024-09-11 14:44 | PC.NURSE ---
2nd bo collected and sent too lab
[2024-09-11 15:27] LABS: Troponin I < 0.01 ng/ml (0.00-0.034)
--- NOTE | 2024-09-11 15:38 | PC.NURSE ---
arrived by stretcher from ED
[2024-09-11] MEDS: PIPERCILLIN/TAZO 3.375 GM in 0.9 % SODIUM CHLORIDE 50 ML IV ×2 (17:08→23:43)
[2024-09-11 18:22] LABS: Troponin I < 0.01 ng/ml (0.00-0.034)
--- NOTE | 2024-09-12 02:46 | PC.NURSE ---
Pt has reported some abd pain earlier in the shift. Administered zofran IVP as ordered. Upon reassessment, pain had subsided. NG set to low wall suction. Measuring at 50. Minimal output from NG tube. Respirations even and unlabored. Pt currently resting in low, locked bed with call light in reach.
[2024-09-12 04:00] VITALS: BP 110/76; PULSE 85; RESP 16; TEMP 36.8; O2SAT 97; BMI 30.9
--- NOTE | 2024-09-12 06:00 | XR_ITS ---
PROCEDURE INFORMATION: Exam: XR Abdomen Exam date and time: 09/12/2024 5:40 AM Age: 69 years old Clinical indication: Other: Sbo TECHNIQUE: Imaging protocol: Radiologic exam of the abdomen. Views: Frontal supine view of the abdomen. 1 View. COMPARISON: CT ABDOMEN PELVIS W CON 09/11/2024 12:31 PM FINDINGS: Tubes, catheters and devices: Enteric tube appears coiled in the distal esophagus. Lungs: Basilar scarring/atelectasis. Gastrointestinal tract: Air dilated loops of small bowel are seen centrally reaching up to 4.2 cm. Heavy colonic stool burden. Organs: Contrast is seen within the urinary bladder. Bones/joints: Diffuse degenerative change of the visualized osseous structures. Bilateral L5 pars defects. IMPRESSION: 1. Enteric tube is coiled in the distal esophagus, recommend removal and re-attempt placement. 2. Bowel findings compatible with small bowel obstruction.
[2024-09-12] MEDS: PIPERCILLIN/TAZO 3.375 GM in 0.9 % SODIUM CHLORIDE 50 ML IV ×4 (06:08→23:13)
[2024-09-12] MEDS: ONDANSETRON 4MG/2ML VIAL 4 MG IV ×3 (06:51→23:11)
--- NOTE | 2024-09-12 07:20 | PC.NURSE ---
hospitalist notified night RN of need to pull NG tube due to coiling. This RN removed NG. pt tolerated well.
[2024-09-12] MEDS: LEVOTHYROXINE 75MCG (0.075MG) TAB 75 MCG PO (07:37)
[2024-09-12 08:00] VITALS: BP 102/78; PULSE 100; RESP 16; TEMP 36.6; O2SAT 95
[2024-09-12 08:11] LABS: Basophils % 0.7 % (0.1-2.0); Eosinophils % 0.4 % (0.1-12.0); Hematocrit 37.9 % (37.0-47.0); Lymphocytes % 18.2 % (10-50); Mean Corpuscular HGB Conc 29.8 g/dL (31.8-35.4); Mean Corpuscular Volume 80.6 fl (81-99); Monocytes # 0.4 K/mm3 (0.1-1.0); Monocytes % 6.2 % (1.7-9.3); Neutrophils # 4.2 K/mm3 (1.8-7.8); Neutrophils % 73.4 % (37.0-80.0); Nucleated Red Blood Cells # 0.05 10^3/uL; Nucleated Red Blood Cells % 0.9 %; Platelet Count 249 K/mm3 (142-424); Red Cell Distribution Width 24.6 % (11.5-17.5); Red Cell Distribution Width-SD 66.6 fL; White Blood Count 5.7 K/mm3 (4.8-10.8)
[2024-09-12 08:18] LABS: Alanine Aminotransferase 85 U/L (12-78); Albumin Level 2.1 g/dl (3.5-5.0); Albumin/Globulin Ratio 0.6 (1.1-1.8); Alkaline Phosphatase 188 U/L (38-126); Aspartate Amino Transferase 110 U/L (14-36); Bilirubin,Total 2.1 mg/dl (0.2-1.3); Blood Urea Nitrogen 28 mg/dl (7-17); Calcium 7.9 mg/dl (8.4-10.2); Carbon Dioxide 17 mmol/L (22.0-30.0); Chloride 107 mmol/L (98-107); Creatinine Clearance Estimated 58 mL/min (50-200); Estimated Glomerular Filt Rate 71 ml/min (>60); GFR (African American) 86 ML/MIN (>60); Globulin 3.4 g/dL (1.3-3.2); Glucose 68 mg/dl (74-100); Magnesium 2.2 mg/dl (1.6-2.3); Sodium 133 mmol/L (136-145); Total Protein,Serum 5.5 g/dl (6.3-8.2)
[2024-09-12 08:30] LABS: Hemoglobin 11.3 g/dL (12.2-16.2)
[2024-09-12] MEDS: ENOXAPARIN 40MG/0.4ML SYRINGE 40 MG SUBCUT (08:33)
--- NOTE | 2024-09-12 09:03 | P.CONS_ITS ---
History of Present Illness *Admission Date: 09/11/24 *Reason for visit:: Bowel obstruction *History of present illness: Patient is a 69-year-old female with a history of hypothyroidism. Her only prior abdominal surgery is appendectomy. She had presented to the emergency department on 09/06/24 after transport via EMS with complaints of dizziness, vomiting, and nausea for 1 month. She had prior to that had been managed by her primary care provider with antiemetics and meclizine as an outpatient. After that ER visit she was able to be managed as an outpatient. She completed outpatient course of antibiotics for urinary tract infection. She had progressive weakness. She had progressive vomiting. She returned to the emergency department on 09/11/2024. Evaluation in the emergency department revealed elevation of liver function test with total bilirubin of 2.7, AST 115, ALT 102, alkaline phosphatase 203. CT scan of the abdomen pelvis was read as consistent with small bowel obstruction. She had nasogastric tube placed. She was admitted for inpatient management to the hospitalist service. Surgical consultation was obtained. She feels better this morning. Her imaging this morning revealed that the nasogastric tube was actually coiled in the esophagus. It was removed. She has tolerated this. Unclear if the patient has had prior colonoscopy. [facility] Disclaimer: The information contained in this section may have been updated after the patient was seen, as this information can be updated by other users. Surgical History Hx of partial thyroidectomy History of surgery on lower extremity Hx of appendectomy Family History Other Lung cancer Renal failure Social History Smoking Status: Never smoker alcohol intake: never current occupational status: unemployed Travel in the last 8 weeks: None Have you lived/traveled outside US in past 30 days?: No Contact w/someone who lives/traveled outside US past 30 days?: No Exposure to someone with infectious disease in past 14 days?: No Do you have a fever (greater than 100.4 F or 38 C)?: No Have you tested positive for COVID-19: No Exposed to someone with COVID-19 in past 14 days?: No Do you have a sore throat?: No Do you have a cough?: No Do you have any weakness?: Yes Are you experiencing any nausea/vomitting?: Yes Do you have any diarrhea?: No Are you experiencing any unusual bleeding?: No Do you have any muscle aches/pain?: No Do you have any abdominal pain?: No Are you experiencing loss of taste or smell?: No Meds Home Medications and Allergies Home Medications ?Medication ?Instructions ?Recorded ?Confirmed ?Type dicyclomine 10 mg capsule 10 mg PO TID 7 days #21 caps 09/06/24 09/11/24 Rx levothyroxine 75 mcg tablet 75 mcg PO DAILY 09/06/24 09/11/24 History nitrofurantoin 100 mg PO BID 5 days #10 caps 09/06/24 09/11/24 Rx monohydrate/macrocrystals 100 mg capsule (Macrobid) ondansetron HCl 4 mg tablet 4 mg PO Q6HP PRN Nausea 09/06/24 09/11/24 History New Prescriptions to Start Prescriptions: Allergies Allergy/AdvReac Type Severity Reaction Status Date / Time No Known Allergies Allergy Verified 09/06/24 17:32 Exam (Inpt) Vital signs and Labs for Last 24 Hours: Temp Pulse Resp BP Pulse Ox O2 Del Method 97.9 F 100 H 16 102/78 L 95 Room Air 09/12/24 08:00 09/12/24 08:00 09/12/24 08:00 09/12/24 08:00 09/12/24 08:00 09/12/24 08:00 Laboratory Results - last 24 hr 09/11/24 12:01: WBC 7.3, RBC 5.37, Hgb 12.8, Hct 41.9, MCV 78.0 L, MCH 23.8 L, M CHC 30.5 L, RDW 24.6 H, Plt Count 316, MPV 9.6, Neut % (Auto) 79.5, Lymph % (Auto) 13.9, Yell % (Auto) 4.5, Eos % (Auto) 0.1, Baso % (Auto) 1.0, Neut # (Auto) 5.8, Lymph # (Auto) 1.0, Yell # (Auto) 0.3, Eos # (Auto) 0.0, Baso # (Auto) 0.1, Sodium 132 L, Potassium 4.6, Chloride 100, Carbon Dioxide 23, Anion Gap 13.6, BUN 27 H, Creatinine 1.00, Estimated Creat Clear 55, Estimated GFR 55 L, Est GFR ( Amer) 66, Glucose 111 H, Lactate 1.6, Calcium 8.5, Magnesium 1.8, Total Bilirubin 2.7 H, AST 115 H, ALT 102 H, Alkaline Phosphatase 203 H, T otal Creatine Kinase 28 L, Troponin I < 0.01, C-Reactive Protein 55.4 H, Total Protein 6.1 L, Albumin 2.6 L, Globulin 3.5 H, Albumin/Globulin Ratio 0.7 L, TSH 0.35 L, Thyroxine (T4) 4.2 L 09/11/24 12:20: Urine Color Yellow, Urine Appearance Clear, Urine pH 6.0, Ur Specific [place] 1.020, Urine Protein Trace, Urine Glucose (UA) Negative, Urine Ketones 1+, Urine Blood Negative, Urine Nitrate Positive A, Urine Bilirubin 2+ A , Urine Urobilinogen 4.0, Ur Leukocyte Esterase Negative, Urine RBC None, Urine WBC Occasional, Ur Squamous Epith Cells Occasional, Urine Bacteria Trace 09/11/24 14:40: Troponin I < 0.01 09/11/24 17:50: Troponin I < 0.01 09/12/24 07:10: WBC 5.7, RBC 4.70, Hgb 11.3 L D, Hct 37.9, MCV 80.6 L, MCH 24.0 L, MCHC 29.8 L, RDW 24.6 H, Plt Count 249, MPV 10.0, Neut % (Auto) 73.4, Lymph % (Auto) 18.2, Yell % (Auto) 6.2, Eos % (Auto) 0.4, Baso % (Auto) 0.7, Neut # (Auto) 4.2, Lymph # (Auto) 1.0, Yell # (Auto) 0.4, Eos # (Auto) 0.0, Baso # (Auto) 0.0, Sodium 133 L, Potassium 4.0, Chloride 107, Carbon Dioxide 17 L, Anion Gap 13.0, BUN 28 H, Creatinine 0.80, Estimated Creat Clear 58, Estimated GFR 71, Est GFR ( Amer) 86 D, Glucose 68 L D, Calcium 7.9 L, Magnesium 2.2 D, Total Bilirubin 2.1 H, AST 110 H, ALT 85 H, Alkaline Phosphatase 188 H, Total Protein 5.5 L, Albumin 2.1 L D, Globulin 3.4 H, Albumin/Globulin Ratio 0.6 L I & O for Labs for Last 24 Hours: Intake & Output 09/09/24 09/10/24 09/11/24 09/12/24 11:59 11:59 11:59 11:59 Intake Total 100 / 100 Output Total 200 / 200 Balance -100 / -100 Weight 150 lb 157 lb 6 oz Constitutional: no acute distress GI: Present soft; Absent tenderness Results Labs 09/12/24 07:10 09/12/24 07:10 Labs: Laboratory Results - last 24 hr 09/11/24 12:01: WBC 7.3, RBC 5.37, Hgb 12.8, Hct 41.9, MCV 78.0 L, MCH 23.8 L, M CHC 30.5 L, RDW 24.6 H, Plt Count 316, MPV 9.6, Neut % (Auto) 79.5, Lymph % (Auto) 13.9, Yell % (Auto) 4.5, Eos % (Auto) 0.1, Baso % (Auto) 1.0, Neut # (Auto) 5.8, Lymph # (Auto) 1.0, Yell # (Auto) 0.3, Eos # (Auto) 0.0, Baso # (Auto) 0.1, Sodium 132 L, Potassium 4.6, Chloride 100, Carbon Dioxide 23, Anion Gap 13.6, BUN 27 H, Creatinine 1.00, Estimated Creat Clear 55, Estimated GFR 55 L, Est GFR ( Amer) 66, Glucose 111 H, Lactate 1.6, Calcium 8.5, Magnesium 1.8, Total Bilirubin 2.7 H, AST 115 H, ALT 102 H, Alkaline Phosphatase 203 H, T otal Creatine Kinase 28 L, Troponin I < 0.01, C-Reactive Protein 55.4 H, Total Protein 6.1 L, Albumin 2.6 L, Globulin 3.5 H, Albumin/Globulin Ratio 0.7 L, TSH 0.35 L, Thyroxine (T4) 4.2 L 09/11/24 12:20: Urine Color Yellow, Urine Appearance Clear, Urine pH 6.0, Ur Specific [place] 1.020, Urine Protein Trace, Urine Glucose (UA) Negative, Urine Ketones 1+, Urine Blood Negative, Urine Nitrate Positive A, Urine Bilirubin 2+ A , Urine Urobilinogen 4.0, Ur Leukocyte Esterase Negative, Urine RBC None, Urine WBC Occasional, Ur Squamous Epith Cells Occasional, Urine Bacteria Trace 09/11/24 14:40: Troponin I < 0.01 09/11/24 17:50: Troponin I < 0.01 09/12/24 07:10: WBC 5.7, RBC 4.70, Hgb 11.3 L D, Hct 37.9, MCV 80.6 L, MCH 24.0 L, MCHC 29.8 L, RDW 24.6 H, Plt Count 249, MPV 10.0, Neut % (Auto) 73.4, Lymph % (Auto) 18.2, Yell % (Auto) 6.2, Eos % (Auto) 0.4, Baso % (Auto) 0.7, Neut # (Auto) 4.2, Lymph # (Auto) 1.0, Yell # (Auto) 0.4, Eos # (Auto) 0.0, Baso # (Auto) 0.0, Sodium 133 L, Potassium 4.0, Chloride 107, Carbon Dioxide 17 L, Anion Gap 13.0, BUN 28 H, Creatinine 0.80, Estimated Creat Clear 58, Estimated GFR 71, Est GFR ( Amer) 86 D, Glucose 68 L D, Calcium 7.9 L, Magnesium 2.2 D, Total Bilirubin 2.1 H, AST 110 H, ALT 85 H, Alkaline Phosphatase 188 H, Total Protein 5.5 L, Albumin 2.1 L D, Globulin 3.4 H, Albumin/Globulin Ratio 0.6 L Assessment and Plan *Assessment and plan (1) Complete obstruction of small intestine: Status: Acute Category: Medical Code(s): K56.601 - Complete intestinal obstruction, unspecified as to cause Plan Patient symptoms are not entirely straightforward. This could be an ileus versus partial obstruction. She has shown some clinical improvement. Hold on replacement of nasogastric tube at this time. May start very limited diet. Workup regarding elevation of liver function tests ongoing by hospitalist service. If patient remains an inpatient for couple of days without need for surgical intervention likely obtain gallbladder ultrasound and possible small bowel follow-through.
[2024-09-12] MEDS: LACTATED RINGERS 1000ML 1,000 ML 75 ML IV ×2 (09:18→21:55)
[2024-09-12 13:03] LABS: Adenovirus,PCR Not Detected (NotDetected); Bordetella Pertussis Not Detected (NotDetected); Chlamydophila Pneumoniae, PCR Not Detected (NotDetected); Coronavirus 19, PCR Not Detected (NotDetected); Coronavirus 229E Not Detected (NotDetected); Coronavirus NL63 Not Detected (NotDetected); Coronavirus OC43 Not Detected (NotDetected); Coronovirus HKU1,PCR Not Detected (NotDetected); Human Metapneumovirus Not Detected (NotDetected); Influenza A, PCR Not Detected (NotDetected); Influenza AH1, 2009 Not Detected (NotDetected); Influenza AH1, PCR Not Detected (NotDetected); Influenza AH3,PCR Not Detected (NotDetected); Influenza B, PCR Not Detected (NotDetected); Mycoplasma Pneumoniae, PCR Not Detected (NotDetected); Parainfluenza 1, PCR Not Detected (NotDetected); Parainfluenza 2, PCR Not Detected (NotDetected); Parainfluenza 3, PCR Not Detected (NotDetected); Parainfluenza 4, PCR Not Detected (NotDetected); Respiratory Syncytial Virus Not Detected (NotDetected); Rhinovirus/Enterovirus Not Detected (NotDetected)
[2024-09-12 16:00] VITALS: BP 109/74; PULSE 101; RESP 16; TEMP 36.7; O2SAT 97
--- NOTE | 2024-09-12 17:25 | PC.NURSE ---
Addendum entered by Omayra Thomas RN 09/12/24 18:45: 450 ml emptied from purewick canister Original Note: pt resting supine in bed with family at bedside. ng tube removed this morning and pt tolerated well. pt has had a small amount of po intake (water and juice) per hospitalist permission and tolerated well. pt has not had any vomiting this shift. pt has had a small amount of dark urine collected in purewick canister. pt does not voice that she has the need to urinate. LR infusing @ 75. no complaints of pain. call light within reach. bed in low and locked position.
[2024-09-12 19:18] VITALS: BP 125/72; PULSE 88; RESP 13; TEMP 36.7; O2SAT 97
[2024-09-12 20:00] VITALS: BP 125/72; PULSE 88; RESP 13; TEMP 36.7; O2SAT 97
--- NOTE | 2024-09-12 21:40 | P.PN_ITS ---
Subjective *Date: 09/12/24 *Time: 21:40 Interval history: Patient feeling much better today, NG tube removed due to calling at distal esophagus. Passing flatus, no bowel movements. Advance diet to sips of water/juice. Transaminitis improving. Continue IV fluids. Consider RUQ ultrasound Saturday, small bowel follow-through. Exam Data for Last 24 hours Vital signs and Labs for Last 24 Hours: Temp Pulse Resp BP Pulse Ox O2 Del Method 98.0 F 88 13 125/72 97 Room Air 09/12/24 20:00 09/12/24 20:00 09/12/24 20:00 09/12/24 20:00 09/12/24 20:00 09/12/24 20:00 Laboratory Results - last 24 hr 09/12/24 07:10: WBC 5.7, RBC 4.70, Hgb 11.3 L D, Hct 37.9, MCV 80.6 L, MCH 24.0 L, MCHC 29.8 L, RDW 24.6 H, Plt Count 249, MPV 10.0, Neut % (Auto) 73.4, Lymph % (Auto) 18.2, [place] % (Auto) 6.2, Eos % (Auto) 0.4, Baso % (Auto) 0.7, Neut # (Auto) 4.2, Lymph # (Auto) 1.0, [place] # (Auto) 0.4, Eos # (Auto) 0.0, Baso # (Auto) 0.0, Sodium 133 L, Potassium 4.0, Chloride 107, Carbon Dioxide 17 L, Anion Gap 13.0, BUN 28 H, Creatinine 0.80, Estimated Creat Clear 58, Estimated GFR 71, Est GFR ( Amer) 86 D, Glucose 68 L D, Calcium 7.9 L, Magnesium 2.2 D, Total Bilirubin 2.1 H, AST 110 H, ALT 85 H, Alkaline Phosphatase 188 H, Total Protein 5.5 L, Albumin 2.1 L D, Globulin 3.4 H, Albumin/Globulin Ratio 0.6 L 09/12/24 12:00: Chlamy pneumoniae PCR Not detected, Adenovirus (PCR) Not detected, B. pertussis DNA (PCR) Not detected, Coronavirus OC43 (PCR) Not detected, Coronavirus HKU1 (PCR) Not detected, Coronavirus 229E (PCR) Not detected, SARS-CoV-2 (PCR) Not detected, Coronavirus NL63 (PCR) Not detected, Human Metapneumovir PCR Not detected, Influenza A (H1) PCR Not detected, Influ A (H1N1/09) PCR Not detected, Influenza A (H3) PCR Not detected, Influenza Type A (PCR) Not detected, Influenza Type B (PCR) Not detected, M. pneumoniae (PCR) Not detected, Parainfluenza 1 (PCR) Not detected, Parainfluenza 2 (PCR) Not detected, Parainfluenza 3 (PCR) Not detected, Parainfluenza 4 (PCR) Not detected, RSV (PCR) Not detected, Entero/Rhino (PCR) Not detected I & O for Last 24 hours: Intake & Output 09/09/24 09/10/24 09/11/24 09/12/24 23:59 23:59 23:59 23:59 Intake Total 543 / 543 Output Total 650 / 650 Balance -107 / -107 Weight 68.991 kg 71.384 kg Microbiology Reports for the Last 24 Hours: Microbiology 09/11/24 12:44 Blood Blood Culture - Preliminary NO GROWTH AFTER 24 HOURS 09/11/24 12:01 Blood Blood Culture - Preliminary NO GROWTH AFTER 24 HOURS Constitutional Constitutional: no acute distress *Routine HEENT Exam Head: Present normocephalic Eye: Present EOMI and PERRL ENT: Present mucous membranes moist *Routine Neck Exam Neck: Present supple; Absent lymphadenopathy *Routine Respiratory Exam Respiratory: Present CTA bilaterally *Routine Cardiovascular Exam Cardiovascular: Present RRR *Routine Abdominal Exam Abdominal: Present soft; Absent normoactive bowel sounds or tenderness Comments: No focal tenderness, minimal bowel sounds. *Routine Extremities Exam Extremities: Absent cyanosis, clubbing or edema *Routine Skin Exam Skin: Present warm; Absent rash *Routine Neurological Exam Neurological: Present alert and oriented X3 Assessment and Plan *Assessment and plan (1) Sepsis: Status: Acute Category: Medical Code(s): A41.9 - Sepsis, unspecified organism (2) Complete obstruction of small intestine: Status: Acute Category: Medical Code(s): K56.601 - Complete intestinal obstruction, unspecified as to cause (3) Nausea: Status: Acute Category: Medical Code(s): R11.0 - Nausea (4) Acute dehydration: Status: Acute Category: Medical Code(s): E86.0 - Dehydration (5) Urinary tract infection: Status: Acute Category: Medical Code(s): N39.0 - Urinary tract infection, site not specified (6) Acute UTI: Status: Acute Category: Medical Code(s): N39.0 - Urinary tract infection, site not specified (7) Transaminitis: Status: Acute Category: Medical Code(s): R74.01 - Elevation of levels of liver transaminase levels (8) Hypothyroid: Status: Chronic Category: Medical Code(s): E03.9 - Hypothyroidism, unspecified Plan Zaira Smith is a 69-year-old female who presented with nausea and vomiting. Found to have bowel obstruction on CT. NG placed in the ED. Discussed case with ER physician, request admission for further management of bowel obstruction. I agreed to admit for further care. #Sepsis #SBO #Nausea and vomiting #Transaminitis - Initially met sepsis criteria with tachycardia of 123, respiratory rate of 24, suspected infection with bowel obstruction inflammation of small intestine. I mproved these have resolved today. - Continue Zosyn. ? Patient feeling better today, NG tube was removed due to coiling in the esophagus. Minimal output. Having flatus, no bowel movements. Minimal distention on the abdomen. ? General Surgery consulted, recommended advancing diet to sips of water/juice. - Patient's transaminitis is improving, total bili 2.1, AST/ALT/ALP 110/85/188. There is concern for intra biliary pathology, but this is also in the setting of poor oral intake. May also be viral in etiology, respiratory panel normal here. No focal tenderness. ? Follow-up hepatitis panel. ? Plan for RUQ ultrasound on Saturday. ? Planning for small bowel follow-through on Saturday if patient not making much improvement. - Zofran 4 mg every 6 hours IV nausea Resolving UTI: Was completing course of Macrobid. Zosyn above for coverage. Urinalysis with mild abnormalities. #Hypothyroid ? TSH low 0.35. Reduce home levothyroxine from 75 to 50 mcg. Full code Lovenox 40 mg subcu daily N.p.o. except sips of juice/water
--- NOTE | 2024-09-13 03:32 | PC.NURSE ---
This RN took over care for this patient @ [id number].
[2024-09-13 04:00] VITALS: BP 124/74; PULSE 96; RESP 16; TEMP 36.4; O2SAT 98; BMI 31.1
[2024-09-13] MEDS: PIPERCILLIN/TAZO 3.375 GM in 0.9 % SODIUM CHLORIDE 50 ML IV ×3 (06:50→17:45)
[2024-09-13 07:37] LABS: Albumin Level 1.9 g/dl (3.5-5.0); Chloride 106 mmol/L (98-107); Potassium 3.2 mmoL/L (3.5-5.1); Sodium 133 mmol/L (136-145)
[2024-09-13 07:39] LABS: Basophils % 0.6 % (0.1-2.0); Eosinophils % 0.2 % (0.1-12.0); Hematocrit 32.9 % (37.0-47.0); Lymphocytes # 0.7 K/mm3 (0.7-4.5); Lymphocytes % 13.4 % (10-50); Mean Corpuscular HGB Conc 30.4 g/dL (31.8-35.4); Mean Corpuscular Hemoglobin 24.4 pg (27.0-31.2); Mean Corpuscular Volume 80.2 fl (81-99); Mean Platelet Volume 9.6 fl (7.4-10.4); Monocytes # 0.2 K/mm3 (0.1-1.0); Neutrophils # 4.3 K/mm3 (1.8-7.8); Neutrophils % 80.7 % (37.0-80.0); Nucleated Red Blood Cells # 0.05 10^3/uL; Nucleated Red Blood Cells % 0.9 %; Platelet Count 230 K/mm3 (142-424); Red Cell Distribution Width 23.7 % (11.5-17.5); Red Cell Distribution Width-SD 63.3 fL; White Blood Count 5.3 K/mm3 (4.8-10.8)
[2024-09-13 07:40] LABS: Alanine Aminotransferase 69 U/L (12-78); Albumin/Globulin Ratio 0.6 (1.1-1.8); Alkaline Phosphatase 153 U/L (38-126); Anion Gap 9.2 mEq/L (5-15); Aspartate Amino Transferase 80 U/L (14-36); Bilirubin,Total 1.5 mg/dl (0.2-1.3); Blood Urea Nitrogen 23 mg/dl (7-17); Calcium 7.7 mg/dl (8.4-10.2); Carbon Dioxide 21 mmol/L (22.0-30.0); Creatinine Clearance Estimated 59 mL/min (50-200); Estimated Glomerular Filt Rate 71 ml/min (>60); GFR (African American) 86 ML/MIN (>60); Globulin 3.1 g/dL (1.3-3.2); Glucose 81 mg/dl (74-100)
[2024-09-13 07:41] LABS: Magnesium 1.8 mg/dl (1.6-2.3)
[2024-09-13 07:52] VITALS: BP 107/66; PULSE 95; RESP 16; TEMP 36.3; O2SAT 98
[2024-09-13] MEDS: ENOXAPARIN 40MG/0.4ML SYRINGE 40 MG SUBCUT (08:25)
--- NOTE | 2024-09-13 10:09 | EXP.SURG.PN ---
Subjective Narrative: Patient states that she feels better . She has tolerated some liquids without nausea. No bowel movement. Exam Data for Last 24 hours Vital signs and Labs for Last 24 Hours: Temp Pulse Resp BP Pulse Ox O2 Del Method 97.4 F L 95 H 16 107/66 L 98 Room Air 09/13/24 07:52 09/13/24 07:52 09/13/24 07:52 09/13/24 07:52 09/13/24 07:52 09/13/24 09:00 Laboratory Results - last 24 hr 09/12/24 12:00: Chlamy pneumoniae PCR Not detected, Adenovirus (PCR) Not detected, B. pertussis DNA (PCR) Not detected, Coronavirus OC43 (PCR) Not detected, Coronavirus HKU1 (PCR) Not detected, Coronavirus 229E (PCR) Not detected, SARS-CoV-2 (PCR) Not detected, Coronavirus NL63 (PCR) Not detected, Human Metapneumovir PCR Not detected, Influenza A (H1) PCR Not detected, Influ A (H1N1/09) PCR Not detected, Influenza A (H3) PCR Not detected, Influenza Type A (PCR) Not detected, Influenza Type B (PCR) Not detected, M. pneumoniae (PCR) Not detected, Parainfluenza 1 (PCR) Not detected, Parainfluenza 2 (PCR) Not detected, Parainfluenza 3 (PCR) Not detected, Parainfluenza 4 (PCR) Not detected, RSV (PCR) Not detected, Entero/Rhino (PCR) Not detected 09/13/24 07:00: WBC 5.3, RBC 4.10 L, Hgb 10.0 L D, Hct 32.9 L, MCV 80.2 L, MCH 24.4 L, MCHC 30.4 L, RDW 23.7 H, Plt Count 230, MPV 9.6, Neut % (Auto) 80.7 H, Lymph % (Auto) 13.4, [place] % (Auto) 4.0, Eos % (Auto) 0.2, Baso % (Auto) 0.6, Neut # (Auto) 4.3, Lymph # (Auto) 0.7, [place] # (Auto) 0.2, Eos # (Auto) 0.0, Baso # (Auto) 0.0, Sodium 133 L, Potassium 3.2 L, Chloride 106, Carbon Dioxide 21 L, Anion Gap 9.2, BUN 23 H, Creatinine 0.80, Estimated Creat Clear 59, Estimated GFR 71, Est GFR ( Amer) 86, Glucose 81, Calcium 7.7 L, Magnesium 1.8 D, Total Bilirubin 1.5 H, AST 80 H D, ALT 69, Alkaline Phosphatase 153 H, Total Protein 5.0 L, Albumin 1.9 L, Globulin 3.1, Albumin/Globulin Ratio 0.6 L I & O for Last 24 hours: Intake & Output 09/10/24 09/11/24 09/12/24 09/13/24 11:59 11:59 11:59 11:59 Intake Total 100 / 100 443 / 443 Output Total 200 / 200 700 / 700 Balance -100 / -100 -257 / -257 Weight 150 lb 157 lb 6 oz 158 lb 12.8 oz Microbiology Reports for the Last 24 Hours: Microbiology 09/11/24 12:20 Urine,Clean Catch Urine Culture - Final 09/11/24 12:44 Blood Blood Culture - Preliminary NO GROWTH AFTER 24 HOURS 09/11/24 12:01 Blood Blood Culture - Preliminary NO GROWTH AFTER 24 HOURS *Routine Abdominal Exam Abdominal: Present soft; Absent tenderness Comments: Slightly distended. Progress Note: A&P Assessment and plan (1) Sepsis: Status: Acute (2) Complete obstruction of small intestine: Status: Acute Assessment and plan: Patient does not have evidence of complete obstruction of the small intestine. Possible ileus versus partial obstruction. Going to try clear liquids today. Likely plan for right upper quadrant ultrasound and small bowel follow-through tomorrow (3) Nausea: Status: Acute (4) Acute dehydration: Status: Acute (5) Urinary tract infection: Status: Acute (6) Acute UTI: Status: Acute (7) Transaminitis: Status: Acute (8) Hypothyroid: Status: Chronic
--- NOTE | 2024-09-13 13:52 | PC.NURSE ---
Attempted to ambulate pt to the bathroom with x2 assistance. Pt very weak and verbalized that she needed to sit back down. Pt sat back down and was then able to pivot to the BSC.
[2024-09-13 16:00] VITALS: BP 110/74; PULSE 90; RESP 16; TEMP 36.4; O2SAT 98
--- NOTE | 2024-09-13 16:49 | PC.NURSE ---
bladder scanned pt due to having no urine output this shift. pt does not verbalize the need to urinate. 220ml shown on scan. hospitalist aware. no interventions needed at this time. encourage po intake as pt tolerates.
--- NOTE | 2024-09-13 17:53 | PC.NURSE ---
Pt is A&Ox4. Vitals signs stable tolerating room air. IV abx infusing per JUL. Pt has tolerated a clear liquid diet. No complaints of nausea. NPO at midnight tonight for US of abdomen. PT/OT consult in for weakness. Pt is sitting up in bed comfortably with no further needs voiced at this time. Call light within reach.
--- NOTE | 2024-09-13 18:18 | EXP.PN ---
Subjective *Date: 09/13/24 *Time: 18:18 Interval history: Patient again feeling better, started clear liquid diet per surgery recommendations. Tolerating this well. Ambulating, but requiring assistance. N.p.o. at midnight for RUQ ultrasound for transaminitis in the morning. Will consider small bowel follow-through if not improving tomorrow. Exam Data for Last 24 hours Vital signs and Labs for Last 24 Hours: Temp Pulse Resp BP Pulse Ox O2 Del Method 97.6 F 90 16 110/74 98 Room Air 09/13/24 16:00 09/13/24 16:00 09/13/24 16:09/13/24 16:00 09/13/24 16:00 09/13/24 17:00 Laboratory Results - last 24 hr 09/13/24 07:00: WBC 5.3, RBC 4.10 L, Hgb 10.0 L D, Hct 32.9 L, MCV 80.2 L, MCH 24.4 L, MCHC 30.4 L, RDW 23.7 H, Plt Count 230, MPV 9.6, Neut % (Auto) 80.7 H, Lymph % (Auto) 13.4, [place] % (Auto) 4.0, Eos % (Auto) 0.2, Baso % (Auto) 0.6, Neut # (Auto) 4.3, Lymph # (Auto) 0.7, [place] # (Auto) 0.2, Eos # (Auto) 0.0, Baso # (Auto) 0.0, Sodium 133 L, Potassium 3.2 L, Chloride 106, Carbon Dioxide 21 L, Anion Gap 9.2, BUN 23 H, Creatinine 0.80, Estimated Creat Clear 59, Estimated GFR 71, Est GFR ( Amer) 86, Glucose 81, Calcium 7.7 L, Magnesium 1.8 D, Total Bilirubin 1.5 H, AST 80 H D, ALT 69, Alkaline Phosphatase 153 H, Total Protein 5.0 L, Albumin 1.9 L, Globulin 3.1, Albumin/Globulin Ratio 0.6 L I & O for Last 24 hours: Intake & Output 09/10/24 09/11/24 09/12/24 09/13/24 23:59 23:59 23:59 23:59 Intake Total 543 / 543 540 / 540 Output Total 650 / 650 250 / 250 Balance -107 / -107 290 / 290 Weight 68.991 kg 71.384 kg 72.03 kg Microbiology Reports for the Last 24 Hours: Microbiology 09/11/24 12:44 Blood Blood Culture - Preliminary NO GROWTH AFTER 48 HOURS 09/11/24 12:01 Blood Blood Culture - Preliminary NO GROWTH AFTER 48 HOURS 09/11/24 12:20 Urine,Clean Catch Urine Culture - Final Constitutional Constitutional: no acute distress *Routine HEENT Exam Head: Present normocephalic Eye: Present EOMI and PERRL ENT: Present mucous membranes moist *Routine Neck Exam Neck: Present supple; Absent lymphadenopathy *Routine Respiratory Exam Respiratory: Present CTA bilaterally *Routine Cardiovascular Exam Cardiovascular: Present RRR *Routine Abdominal Exam Abdominal: Present soft and distended; Absent normoactive bowel sounds or tenderness Comments: No focal tenderness, improved but minimal bowel sounds. Mild distention. *Routine Extremities Exam Extremities: Absent cyanosis, clubbing or edema *Routine Skin Exam Skin: Present warm; Absent rash *Routine Neurological Exam Neurological: Present alert and oriented X3 Assessment and Plan *Assessment and plan (1) Sepsis: Status: Acute Category: Medical Code(s): A41.9 - Sepsis, unspecified organism (2) Complete obstruction of small intestine: Status: Acute Category: Medical Code(s): K56.601 - Complete intestinal obstruction, unspecified as to cause (3) Nausea: Status: Acute Category: Medical Code(s): R11.0 - Nausea (4) Acute dehydration: Status: Acute Category: Medical Code(s): E86.0 - Dehydration (5) Urinary tract infection: Status: Acute Category: Medical Code(s): N39.0 - Urinary tract infection, site not specified (6) Acute UTI: Status: Acute Category: Medical Code(s): N39.0 - Urinary tract infection, site not specified (7) Transaminitis: Status: Acute Category: Medical Code(s): R74.01 - Elevation of levels of liver transaminase levels (8) Hypothyroid: Status: Chronic Category: Medical Code(s): E03.9 - Hypothyroidism, unspecified Plan Zaira Smith is a 69-year-old female who presented with nausea and vomiting. Found to have bowel obstruction on CT. NG placed in the ED. Discussed case with ER physician, request admission for further management of bowel obstruction. I agreed to admit for further care. #Sepsis #SBO #Nausea and vomiting #Transaminitis - Initially met sepsis criteria with tachycardia of 123, respiratory rate of 24, suspected infection with bowel obstruction inflammation of small intestine. These have resolved. - Continue Zosyn for now. ? Patient again feeling better today. Having increased flatus, however no bowel movements. Minimal distention on the abdomen, no tenderness or pain. ? General Surgery consulted, recommended advancing diet to clear liquid diet today. Patient tolerating this well. ? Encourage patient to ambulate, to which she is amenable. - Patient's transaminitis is improving, total bili 1.5, AST/ALT/ALP 80/69/153. There is concern for intra biliary pathology, but this is also in the setting of poor oral intake. May also be viral in etiology, respiratory panel normal here. No focal tenderness. ? Follow-up hepatitis panel. ? Plan for RUQ ultrasound on tomorrow, n.p.o. at midnight. ? Planning for small bowel follow-through on Saturday if patient not making much improvement. - Zofran 4 mg every 6 hours IV nausea as needed. #Physical deconditioning ? PT/OT consulted, pending recommendations. #Hypothyroid ? TSH low 0.35. Reduce home levothyroxine from 75 to 50 mcg. Full code Lovenox 40 mg subcu daily Clear liquid diet
[2024-09-13 19:43] VITALS: BP 121/71; PULSE 86; RESP 16; TEMP 36.5; O2SAT 99
[2024-09-13 20:00] VITALS: PULSE 86; RESP 16; O2SAT 99
--- NOTE | 2024-09-14 | US_ITS ---
FINAL REPORT CLINICAL HISTORY: ELEVATED LABS COMPARISON: None FINDINGS: Sonographic images of the right upper quadrant were obtained. The pancreas is partially obscured. The liver has a coarsened echotexture consistent with diffuse fatty infiltration. There is mild thickening of the gallbladder wall. The gallbladder is incompletely distended. No evidence of gallstones. There is no evidence of biliary ductal dilatation.The common duct is not seen. Limited images of the right kidney are unremarkable. IMPRESSION: Fatty liver. Mild gallbladder wall thickening. Reviewed, Interpreted and Dictated by Deepak Krueger MD Transcribed by Jacque Hines Authenticated and [facility]
[2024-09-14 04:00] VITALS: BP 111/67; PULSE 79; RESP 16; TEMP 36.6; O2SAT 96; BMI 31.2
--- NOTE | 2024-09-14 04:34 | PC.NURSE ---
Patient is alert and oriented x4. She was observed to have eyes closed, respirations even/unlabored on room air, and no apparent distress throughout the majority of the night. Patient has not had a bowel movement this shift, but continues to pass gas. Bowel sounds are very active. She has not had any complaints of abdominal tenderness, but her abdomen is slightly firm and distended upon palpation. Patient has also continued to have poor urine output via female purewick. Urine appearance horace and cloudy. She has remained NPO since midnight pending anticipated ultrasound of abdomen this morning, previously tolerating a clear liquid diet well. Scheduled medications were administered as appropriately per JUL. She requires moderate assistance during transfers/ambulation due to weakness. Diminished lung sounds and S1/S2 heart sounds heard upon auscultation. Swelling noted in bilateral lower extremities; both legs elevated. Vital signs stable. At this time, the patient is resting in bed without any further complaints. No new needs at this time. Bed alarm on. Call light within reach.
[2024-09-14] MEDS: PIPERCILLIN/TAZO 3.375 GM in 0.9 % SODIUM CHLORIDE 50 ML IV ×4 (06:04→18:24)
[2024-09-14] MEDS: LEVOTHYROXINE 50MCG (0.05MG) TAB 50 MCG PO (06:04)
[2024-09-14 06:21] LABS: Basophils % 0.5 % (0.1-2.0); Eosinophils % 0.5 % (0.1-12.0); Hemoglobin 9.5 g/dL (12.2-16.2); Lymphocytes # 0.8 K/mm3 (0.7-4.5); Mean Corpuscular HGB Conc 30.6 g/dL (31.8-35.4); Mean Corpuscular Hemoglobin 24.9 pg (27.0-31.2); Mean Corpuscular Volume 81.2 fl (81-99); Mean Platelet Volume 9.5 fl (7.4-10.4); Monocytes # 0.2 K/mm3 (0.1-1.0); Monocytes % 5.4 % (1.7-9.3); Neutrophils # 2.6 K/mm3 (1.8-7.8); Neutrophils % 70.2 % (37.0-80.0); Nucleated Red Blood Cells # 0.02 10^3/uL; Nucleated Red Blood Cells % 0.5 %; Platelet Count 240 K/mm3 (142-424); Red Blood Count 3.82 M/mm3 (4.20-5.40); Red Cell Distribution Width 23.9 % (11.5-17.5); Red Cell Distribution Width-SD 64.2 fL; White Blood Count 3.7 K/mm3 (4.8-10.8)
[2024-09-14 06:27] LABS: Albumin Level 1.7 g/dl (3.5-5.0); Chloride 106 mmol/L (98-107); Sodium 133 mmol/L (136-145)
[2024-09-14 06:30] LABS: Alanine Aminotransferase 60 U/L (12-78); Albumin/Globulin Ratio 0.6 (1.1-1.8); Alkaline Phosphatase 147 U/L (38-126); Aspartate Amino Transferase 63 U/L (14-36); Bilirubin,Total 1.2 mg/dl (0.2-1.3); Blood Urea Nitrogen 18 mg/dl (7-17); Calcium 7.4 mg/dl (8.4-10.2); Carbon Dioxide 22 mmol/L (22.0-30.0); Creatinine Clearance Estimated 59 mL/min (50-200); Estimated Glomerular Filt Rate 99 ml/min (>60); GFR (African American) 119 ML/MIN (>60); Globulin 2.9 g/dL (1.3-3.2); Glucose 66 mg/dl (74-100); Magnesium 1.9 mg/dl (1.6-2.3); Total Protein,Serum 4.6 g/dl (6.3-8.2)
[2024-09-14 07:24] VITALS: BP 102/62; PULSE 79; RESP 14; TEMP 36.5; O2SAT 97
[2024-09-14 08:01] VITALS: PULSE 80
--- NOTE | 2024-09-14 08:09 | EXP.PHA.PN ---
Subjective *Date: 09/14/24 *Time: 08:09 Medical Exam Vital signs and Labs for Last 24 Hours: Vital Signs Temp Pulse Resp BP Pulse Ox O2 Del Method 09/14/24 07:24 97.7 F 79 14 102/62 L 97 Room Air 09/14/24 06:35 Room Air 09/14/24 05:00 Room Air 09/14/24 04:00 97.8 F 79 16 111/67 96 Room Air 09/14/24 03:00 Room Air 09/14/24 01:00 Room Air 09/13/24 23:00 Room Air 09/13/24 21:00 Room Air 09/13/24 20:00 86 16 99 Room Air 09/13/24 19:43 97.7 F 86 16 121/71 99 Room Air 09/13/24 18:34 Room Air 09/13/24 17:00 Room Air 09/13/24 16:00 97.6 F 90 16 110/74 98 Room Air 09/13/24 15:00 Room Air 09/13/24 13:00 Room Air 09/13/24 11:00 Room Air 09/13/24 09:00 Room Air Intake and Output 09/13/24 09/14/24 09/14/24 23:59 07:59 15:59 Intake Total 270 / 660 120 / 120 Output Total 90 / 90 Balance 270 / 320 30 / 30 Intake: Intake, Oral Amount 270 / 660 120 / 120 Output: Output, Urine Amount 90 / 90 Other: Weight 72.121 kg Patient Weight 09/14/24 23:59 Weight 72.121 kg Laboratory Results - last 24 hr 09/14/24 05:44: WBC 3.7 L D, RBC 3.82 L, Hgb 9.5 L, Hct 31.0 L, MCV 81.2, MCH 24.9 L, MCHC 30.6 L, RDW 23.9 H, Plt Count 240, MPV 9.5, Neut % (Auto) 70.2, Lymph % (Auto) 22.0, [place] % (Auto) 5.4, Eos % (Auto) 0.5, Baso % (Auto) 0.5, Neut # (Auto) 2.6, Lymph # (Auto) 0.8, [place] # (Auto) 0.2, Eos # (Auto) 0.0, Baso # (Auto) 0.0, Sodium 133 L, Potassium 3.0 L, Chloride 106, Carbon Dioxide 22, Anion Gap 8.0, BUN 18 H, Creatinine 0.60 D, Estimated Creat Clear 59, Estimated GFR 99, Est GFR ( Amer) 119 D, Glucose 66 L, Calcium 7.4 L, Magnesium 1.9, Total Bilirubin 1.2, AST 63 H, ALT 60, Alkaline Phosphatase 147 H, Total Protein 4.6 L, Albumin 1.7 L D, Globulin 2.9, Albumin/Globulin Ratio 0.6 L I & O for Labs for Last 24 Hours: Intake & Output 09/11/24 09/12/24 09/13/24 09/14/24 23:59 23:59 23:59 23:59 Intake Total 543 / 543 540 / 660 120 / 120 Output Total 650 / 650 250 / 340 90 / 90 Balance -107 / -107 290 / 320 30 / 30 Weight 68.991 kg 71.384 kg 72.03 kg 72.121 kg Microbiology Reports for the Last 24 Hours: Microbiology 09/11/24 12:44 Blood Blood Culture - Preliminary NO GROWTH AFTER 48 HOURS 09/11/24 12:01 Blood Blood Culture - Preliminary NO GROWTH AFTER 48 HOURS 09/11/24 12:20 Urine,Clean Catch Urine Culture - Final The patient's infection will respond to the chosen ABx?: Yes Is the patient receiving the right drug, dose, and route?: Yes Could a more targeted ABx be ordered?: No
[2024-09-14] MEDS: KCl 10mEq/100ml 100 ML 100 MEQ IV ×8 (08:49→20:53)
[2024-09-14] MEDS: ENOXAPARIN 40MG/0.4ML SYRINGE 40 MG SUBCUT (08:49)
--- NOTE | 2024-09-14 08:50 | FL_ITS ---
FINAL REPORT CLINICAL HISTORY: sbo done upstairs in pt room FINDINGS: SMALL BOWEL FOLLOW-THROUGH HISTORY: Small bowel obstruction, abnormal CT. PROCEDURE: The patient ingested Gastrografin. Overhead films were obtained. A total 10 images were saved. FINDINGS: The ergonomics engineer film demonstrates retained stool in the right colon. Ingested contrast reaches the colon at approximately 2.5 hours. There is no evidence of complete small bowel obstruction. There are persistent dilated loops of bowel. Findings may be due to partial small bowel obstruction or ileus. Incidental note is made of a moderate hiatal hernia and gastroesophageal reflux. FLUOROSCOPY TIME: Fluoroscopy was not utilized for this procedure. IMPRESSION: Contrast reaches the colon at 2.5 hours. There is no complete small bowel obstruction. Persistent dilated small bowel loops are present. Findings may be due to partial small bowel obstruction or ileus. Moderate hiatal hernia and gastroesophageal reflux incidentally noted. Reviewed, Interpreted and Dictated by Deepak Krueger MD Transcribed by Morena Aguilar PA-C Authenticated and [facility]
--- NOTE | 2024-09-14 09:44 | EXP.SURG.PN ---
Subjective Narrative: Patient states that she feels better. Tolerated clear liquids. No bowel movements. Exam Data for Last 24 hours Vital signs and Labs for Last 24 Hours: Temp Pulse Resp BP Pulse Ox O2 Del Method 97.7 F 80 14 102/62 L 97 Room Air 09/14/24 07:24 09/14/24 08:01 09/14/24 07:24 09/14/24 07:24 09/14/24 07:24 09/14/24 07:24 Laboratory Results - last 24 hr 09/14/24 05:44: WBC 3.7 L D, RBC 3.82 L, Hgb 9.5 L, Hct 31.0 L, MCV 81.2, MCH 24.9 L, MCHC 30.6 L, RDW 23.9 H, Plt Count 240, MPV 9.5, Neut % (Auto) 70.2, Lymph % (Auto) 22.0, [place] % (Auto) 5.4, Eos % (Auto) 0.5, Baso % (Auto) 0.5, Neut # (Auto) 2.6, Lymph # (Auto) 0.8, [place] # (Auto) 0.2, Eos # (Auto) 0.0, Baso # (Auto) 0.0, Sodium 133 L, Potassium 3.0 L, Chloride 106, Carbon Dioxide 22, Anion Gap 8.0, BUN 18 H, Creatinine 0.60 D, Estimated Creat Clear 59, Estimated GFR 99, Est GFR ( Amer) 119 D, Glucose 66 L, Calcium 7.4 L, Magnesium 1.9, Total Bilirubin 1.2, AST 63 H, ALT 60, Alkaline Phosphatase 147 H, Total Protein 4.6 L, Albumin 1.7 L D, Globulin 2.9, Albumin/Globulin Ratio 0.6 L I & O for Last 24 hours: Intake & Output 09/11/24 09/12/24 09/13/24 09/14/24 11:59 11:59 11:59 11:59 Intake Total 100 / 100 443 / 443 660 / 660 Output Total 200 / 200 700 / 700 90 / 90 Balance -100 / -100 -257 / -257 570 / 570 Weight 150 lb 157 lb 6 oz 158 lb 12.8 oz 159 lb Microbiology Reports for the Last 24 Hours: Microbiology 09/11/24 12:44 Blood Blood Culture - Preliminary NO GROWTH AFTER 48 HOURS 09/11/24 12:01 Blood Blood Culture - Preliminary NO GROWTH AFTER 48 HOURS 09/11/24 12:20 Urine,Clean Catch Urine Culture - Final *Routine Abdominal Exam Abdominal: Present soft; Absent tenderness Progress Note: A&P Assessment and plan (1) Sepsis: Status: Acute (2) Complete obstruction of small intestine: Status: Acute Assessment and plan: Gallbladder ultrasound and small bowel follow-through today (3) Nausea: Status: Acute (4) Acute dehydration: Status: Acute (5) Urinary tract infection: Status: Acute (6) Acute UTI: Status: Acute (7) Transaminitis: Status: Acute (8) Hypothyroid: Status: Chronic
--- NOTE | 2024-09-14 10:04 | SW/DCPLANNER ---
Addendum entered by Radha Genao 09/15/24 08:58: Patient has been approved SNF level of care. Addendum entered by Radha Genao 09/14/24 15:20: [facility] has started a precert for this patient. Original Note: I spoke w/ this patient regarding plans once medically stable for discharge. PT/OT evaluated patient this AM and recommended placement. Patient currently lives at home alone and is interested in placement. Patient prefers to stay in [place] or [place]. Patient information will be faxed to [facility] and [facility]. Discharge date is unknown at this time. I will continue to follow up.
--- NOTE | 2024-09-14 10:19 | HMH.OTEV ---
OT Inpatient Evaluation Rehab OT IP Evaluation Start: 09/13/24 18:23 Freq: ONCE Status: Active Protocol: Document 09/14/24 10:14 [facility] (Rec: 09/14/24 10:19 [facility] [id number]) Rehab OT IP Assessment Subjective History Pt oriented x 3 on arrival. Pt agreeable to engage in therapy evaluation. Pt was admitted on 09/11/24 due to SOB , nausea/vomiting. History and physical: Ms. Smith is a 69-year-old female with history of hypothyroid and recent UTI. States over the past week she has been having increased nausea and upset stomach. Increased weakness over the past few days. Diagnosed with a UTI last Saturday and was due to finish her antibiotics today. Last bowel movement 2 days ago. Increased nausea and vomiting over the past 24 to 48 hours. [place] weak today at home walking to the couch but did not fall or hit her head. On presentation to the ER, found to have normal white count 7.3. Imaging showing concern for small bowel obstruction on CT. Kidney function stable. Liver enzymes abnormal however with bilirubin of 2.7, and AST ALT of 115 and 102 respectively. Afebrile. NG placed in the ED with improvement in abdominal pain and distention. Medicine consulted for admission and further management. Subjective Pt reports prior to being in the hospital, she lived at home alone. Pt claims normally she is independent with all ADLs and IADLs. Her daughter does assist with deep cleaning her house. She no longer drives. She does not have any steps in her home. Normally she does not require any type of AE during functional transfers. Objective Patient Orientation Person,Place,Birthday Right Upper Extremity Gross ROM WFL Left Upper Extremity Gross ROM WFL Bed Mobility bed mobility-scooting,bed mobility - supine/sit,bed mobility - rolling Assist Level Maximum x 2 (75% assist) Transfer Training Sit/Stand Transfer Assist Level Maximum x 2 (75% assist) Lower Body Dressing Ability Maximum Assistance Rehab OT IP prob,goals,plan Problems Date of Evaluation: 09/14/24 OT IP Problems Bed Mobility,Transfers,Balance ,Self care,Safety Rehab Potential Rehab Potential Good Equipment Needs Assistive Devices Rolling / Wheeled Walker Plan OT intervention Plan Bed Mobility,Transfers,Balance ,Self care,Safety,Therapeutic Exercise OT Plan Frequency Daily Duration LOS Discharge Goals Bed Mobility Ability Assistance x1 Sit to Stand Chair Transfer Ability Maximum x 1 (75% assist) Chair Transfer Ability Maximum x 1 (75% assist) Chair Transfer Technique Sit to/from Ambulatory Chair Transfer Assistive Devices Rolling Walker Lower Body Dressing Ability Moderate Assistance Upper Body Dressing Ability Minimal Assistance Bathing Ability Maximum Assistance Performing Toilet Hygiene Ability Maximum Assistance Overall Commode/Toilet Transfer Ability Maximum Assistance Commode/Toilet Transfer Technique Sit to/from Ambulatory Commode/Toilet Transfer Assistive Grab Bars Devices Decrease in Endurance Yes Discharge Plan OT Discharge Plan Pt will continue to be seen for OT services while at [facility]. Pt would benefit most from short term rehab at SNF following discharge from hospital. Continued skilled therapy is important in order for patient to improve strength, safety, endurance, ADL independence, and functional transfers to reach PLOF. Eval Complexity Eval Charge Codes 84606 - Moderate Complexity PHYSICIAN CERTIFICATION: I certify the specified therapy services for Zaira Smith are required, authorized, and reviewed every 30 days.
--- NOTE | 2024-09-14 10:36 | HMH.PTEV ---
Physical Therapy Evaluation Rehab PT IP Evaluation Start: 09/13/24 18:23 Freq: ONCE Status: Active Protocol: Document 09/14/24 09:40 [facility] (Rec: 09/14/24 10:36 [facility] [id number]) Subjective/History History History Ms. Smith is a 69-year-old female with history of hypothyroid and recent UTI. Increased weakness over the past few days and increased nausea and vomiting over the past 24 to 48 hours. Found to have bowel obstruction on CT. Pt currently resides at home alone and reports she is independent with all ADLs and ambulation at baseline. She does not currently use an AD for ambulation and has ~2 steps to enter the home. Subjective Subjective Pt presents resting supine in bed. She is alert and oriented , and is willing to participate with PT/OT this am . She states that she has been feeling very weak and is not able to ambulate well. Pt stood 2x at EOB and returned supine with call light in reach. [facility] How much help from another person do you currently need... Turning from your back to your side A little while in a flat bed without using bedrails? Moving from lying on back to sitting on A lot the side of a flat bed without using bedrails? Moving to and from a bed to a chair ( A lot including a wheelchair)? Standing up from a chair using your arms A lot ? (e.g., wheelchair, bedside chair) Walking in hospital room? A lot Climbing 3-5 steps with a railing? A lot Mobility Score 13 Mobility Level [facility] Mobility Calculator Mobility 4 Move to chair/ commode Rehab PT IP Eval Objective Appearance Patient Behavior Appropriate,Cooperative Patient Orientation Person,Place Difficulty following instructions none Speech Pattern Clear,Appropriate Ambulation Patient Able to Ambulate No Balance Ability to Arise Able, uses arms to help Sitting Balance Steady, safe Standing Balance Steady, wide stance Dynamic Sitting Balance Ability Normal Dynamic Standing Balance Ability Normal Transfers Bed Transfer Ability Maximum x 2 (75% assist) Sit to Stand Bed Transfer Ability Maximum x 2 (75% assist) Rehab PT IP prob,goals,plan Problems Date of Evaluation: 09/14/24 PT IP Problems Bed Mobility,Transfers,Gait, Balance,Safety Rehab Potential Rehab Potential Good Equipment Needs Assistive Devices Rolling / Wheeled Walker Plan PT Intervention Plan Bed Mobility,Transfers,Gait, Balance,Safety,Therapeutic Exercise PT Plan Frequency Daily Duration LOS Discharge Goals Bed Transfer Ability Moderate x 2 (50% assist) Sit to Stand Chair Transfer Ability Moderate x 2 (50% assist) Ambulation Assistive Device Rolling Walker Ambulation Distance (feet) 10 Discharge Plan PT Discharge Plan Patient is currently most appropriate for placement in a rehab facility once medically stable for d/c. Pt required maximal x 2 assist for transfers and minimal x 2 assist for standing at EOB. Skilled acute therapy is currently indicated to increase LE strength, endurance to return to PLOF with all ADLs and mobility and decrease fall risk. Eval Complexity Eval Charge Codes 40538 - High Complexity PHYSICIAN CERTIFICATION: I certify the specified therapy services for Zaira Smith are required, authorized, and reviewed every 30 days.
[2024-09-14] MEDS: ONDANSETRON 4MG/2ML VIAL 4 MG IV (11:21)
[2024-09-14 11:29] LABS: INR 1.03 (0.9-1.1); Prothrombin Time 11.5 seconds (10.1-12.5)
--- NOTE | 2024-09-14 11:38 | EXP.PN ---
Subjective *Date: 09/14/24 *Time: 20:18 Interval history: Successful small bowel series today, having copious watery bowel movements. Slightly more uncomfortable after series in the abdomen, likely from barium contrast load. Having bowel sounds. Started simethicone for possible gas. Advance to full liquid diet. Exam Data for Last 24 hours Vital signs and Labs for Last 24 Hours: Temp Pulse Resp BP Pulse Ox O2 Del Method 97.7 F 80 14 102/62 L 97 Room Air 09/14/24 07:24 09/14/24 08:01 09/14/24 07:24 09/14/24 07:24 09/14/24 07:24 09/14/24 11:10 Laboratory Results - last 24 hr 09/14/24 05:44: WBC 3.7 L D, RBC 3.82 L, Hgb 9.5 L, Hct 31.0 L, MCV 81.2, MCH 24.9 L, MCHC 30.6 L, RDW 23.9 H, Plt Count 240, MPV 9.5, Neut % (Auto) 70.2, Lymph % (Auto) 22.0, Hopkins % (Auto) 5.4, Eos % (Auto) 0.5, Baso % (Auto) 0.5, Neut # (Auto) 2.6, Lymph # (Auto) 0.8, Hopkins # (Auto) 0.2, Eos # (Auto) 0.0, Baso # (Auto) 0.0, Sodium 133 L, Potassium 3.0 L, Chloride 106, Carbon Dioxide 22, Anion Gap 8.0, BUN 18 H, Creatinine 0.60 D, Estimated Creat Clear 59, Estimated GFR 99, Est GFR ( Amer) 119 D, Glucose 66 L, Calcium 7.4 L, Magnesium 1.9, Total Bilirubin 1.2, AST 63 H, ALT 60, Alkaline Phosphatase 147 H, Total Protein 4.6 L, Albumin 1.7 L D, Globulin 2.9, Albumin/Globulin Ratio 0.6 L 09/14/24 11:10: PT 11.5, INR 1.03 I & O for Last 24 hours: Intake & Output 09/11/24 09/12/24 09/13/24 09/14/24 23:59 23:59 23:59 23:59 Intake Total 543 / 543 540 / 660 120 / 120 Output Total 650 / 650 250 / 340 90 / 90 Balance -107 / -107 290 / 320 30 / 30 Weight 68.991 kg 71.384 kg 72.03 kg 72.121 kg Microbiology Reports for the Last 24 Hours: Microbiology 09/11/24 12:44 Blood Blood Culture - Preliminary NO GROWTH AFTER 48 HOURS 09/11/24 12:01 Blood Blood Culture - Preliminary NO GROWTH AFTER 48 HOURS 09/11/24 12:20 Urine,Clean Catch Urine Culture - Final Constitutional Constitutional: no acute distress *Routine HEENT Exam Head: Present normocephalic Eye: Present EOMI and PERRL ENT: Present mucous membranes moist *Routine Neck Exam Neck: Present supple; Absent lymphadenopathy *Routine Respiratory Exam Respiratory: Present CTA bilaterally *Routine Cardiovascular Exam Cardiovascular: Present RRR *Routine Abdominal Exam Abdominal: Present soft, normoactive bowel sounds and distended; Absent tenderness Comments: No focal tenderness, improved bowel sounds. Mild distention. *Routine Extremities Exam Extremities: Absent cyanosis, clubbing or edema *Routine Skin Exam Skin: Present warm; Absent rash *Routine Neurological Exam Neurological: Present alert and oriented X3 Assessment and Plan *Assessment and plan (1) Hypothyroid: Status: Chronic Category: Medical Code(s): E03.9 - Hypothyroidism, unspecified (2) Transaminitis: Status: Acute Category: Medical Code(s): R74.01 - Elevation of levels of liver transaminase levels (3) Complete obstruction of small intestine: Status: Acute Category: Medical Code(s): K56.601 - Complete intestinal obstruction, unspecified as to cause (4) Nausea: Status: Acute Category: Medical Code(s): R11.0 - Nausea Plan Zaira Smith is a 69-year-old female who presented with nausea and vomiting. Found to have bowel obstruction on CT. NG placed in the ED. Discussed case with ER physician, request admission for further management of bowel obstruction. I agreed to admit for further care. #SBO #Nausea and vomiting #Transaminitis - Initially met sepsis criteria with tachycardia of 123, respiratory rate of 24, suspected infection with bowel obstruction inflammation of small intestine. These have resolved. ? Patient having copious watery bowel movements after successful small bowel series today. Increased bowel sounds. More uncomfortable after series, likely from barium. Started simethicone for possible gas. - Discontinue Zosyn as lower suspicion for infection at this time, and resolving SBO. ? General Surgery following, appreciate providing above recommendations. ? Advanced diet to full liquid diet. Continue to advance as tolerated. ? Encourage patient to ambulate, to which she is amenable. - Patient's transaminitis is improving. RUQ ultrasound shows fatty liver disease, mild gallbladder wall thickening. However no RUQ tenderness. - Zofran 4 mg every 6 hours IV nausea as needed. #Physical deconditioning ? PT/OT consulted, recommended SNF. Discussed with case management, assisting with placement. # Hypothyroidism ? TSH low 0.35. Reduce home levothyroxine from 75 to 50 mcg. Full code Lovenox 40 mg subcu daily Full liquid diet
[2024-09-14 12:00] VITALS: PULSE 110
[2024-09-14] MEDS: DIATRIZOATE MEG 66% & DIATRIZOATE NA 10% 30ML UDC 360 ML PO (13:18)
[2024-09-14] MEDS: METOCLOPRAMIDE HCL 10MG/2ML VIAL 10 MG IVP (13:29)
[2024-09-14 13:45] VITALS: BMI 31.1
--- NOTE | 2024-09-14 15:03 | ECG_ITS ---
APPROVED REPORT Exam: Resting ECG HR:121 bpm ECG Measurements Heart Rate 121 AXES CA 172 P 69 QRSd 78 QRS -30 QT 297 T 7 QTc 369 Conclusion SINUS TACHYCARDIA LOW QRS VOLTAGE IN EXTREMITY LEADS [QRS DEFLECTION < 0.5 mV IN LIMB LEADS] POSSIBLE ANTERIOR MYOCARDIAL INFARCTION , PROBABLY OLD [30 ms Q WAVE IN V3/V4, OR R < 0.2 mV IN V4] ABNORMAL RHYTHM ECG UNCONFIRMED REPORT Electronically signed by : Salvatore Thompson MD 09/14/2024 16:18:00
[2024-09-14 16:00] VITALS: BP 103/73; PULSE 120; PULSE 128; RESP 16; TEMP 36.4; O2SAT 97
[2024-09-14] MEDS: 0.9 % SODIUM CHLORIDE 1000ML 500 ML IV (16:26)
--- NOTE | 2024-09-14 17:50 | PC.NURSE ---
Multiple liquid bowel movements noted during shift. VS stable and patient remained on room air. Bowel sounds active, abdomen non distended, soft, and non tender on palpation.
[2024-09-14] MEDS: SIMETHICONE 80MG CHEWABLE TABLET 160 MG PO ×2 (18:24→23:00)
[2024-09-14 20:00] VITALS: BP 101/79; PULSE 90; PULSE 95; RESP 16; TEMP 36.4; O2SAT 99
[2024-09-15] VITALS: BP 104/66; PULSE 80; PULSE 89; RESP 16; TEMP 36.4; O2SAT 98
[2024-09-15 04:00] VITALS: BP 114/62; PULSE 80; RESP 16; TEMP 36.5; O2SAT 96; BMI 30.6
[2024-09-15] MEDS: SIMETHICONE 80MG CHEWABLE TABLET 160 MG PO ×2 (05:00→10:05)
--- NOTE | 2024-09-15 06:14 | PC.NURSE ---
v/s, ox4. Pt has had multiple loose stools, but towards end of shift her bowel movements started to become more formed. No acute events to report. plan of care ongoing.
[2024-09-15 06:27] LABS: Chloride 112 mmol/L (98-107)
[2024-09-15 06:28] LABS: Potassium 4.2 mmoL/L (3.5-5.1); Sodium 138 mmol/L (136-145)
[2024-09-15 06:30] LABS: Alanine Aminotransferase 68 U/L (12-78); Albumin/Globulin Ratio 0.6 (1.1-1.8); Anion Gap 15.2 mEq/L (5-15); Aspartate Amino Transferase 107 U/L (14-36); Blood Urea Nitrogen 19 mg/dl (7-17); Carbon Dioxide 15 mmol/L (22.0-30.0); Creatinine Clearance Estimated 58 mL/min (50-200); Estimated Glomerular Filt Rate 82 ml/min (>60); GFR (African American) 100 ML/MIN (>60); Globulin 3.4 g/dL (1.3-3.2); Total Protein,Serum 5.4 g/dl (6.3-8.2)
[2024-09-15 06:31] LABS: Alkaline Phosphatase 203 U/L (38-126); Bilirubin,Total 1.5 mg/dl (0.2-1.3); Calcium 7.8 mg/dl (8.4-10.2); Glucose 83 mg/dl (74-100); Magnesium 2.1 mg/dl (1.6-2.3)
[2024-09-15] MEDS: LEVOTHYROXINE 50MCG (0.05MG) TAB 50 MCG PO (06:50)
--- NOTE | 2024-09-15 07:29 | XR_ITS ---
FINAL REPORT CLINICAL HISTORY: ABDOMINAL PAIN, DISTENSION FINDINGS: THREE-VIEW ABDOMEN An AP view of the the chest was obtained. The lungs are clear. Heart mediastinum are within normal limits. There is no pneumothorax. Flat and upright views of the abdomen were obtained. Contrast is seen throughout air-filled loops of small bowel measuring up to 3.6 cm in a nonspecific pattern. There is no definite obstruction. Contrast is noted in the urinary bladder. IMPRESSION: No acute cardiopulmonary process. Air-filled loops of small bowel measuring up to 3.6 cm in a nonspecific pattern. No definite obstruction. Reviewed, Interpreted and Dictated by Deepak Krueger MD Transcribed by Michelle Guzman Authenticated and [facility]
[2024-09-15 08:00] VITALS: BP 133/93; PULSE 100; PULSE 106; RESP 18; TEMP 36.7; O2SAT 97
[2024-09-15] MEDS: ENOXAPARIN 40MG/0.4ML SYRINGE 40 MG SUBCUT (08:02)
--- NOTE | 2024-09-15 08:08 | EXP.SURG.PN ---
Subjective Narrative: Patient feels well. She does state that she had some nausea with oral contrast for small bowel follow-through yesterday. Has had multiple bowel movements overnight. The patient reports on small bowel follow-through is still pending at this time. Tolerating full liquids. Exam Data for Last 24 hours Vital signs and Labs for Last 24 Hours: Temp Pulse Resp BP Pulse Ox O2 Del Method 97.7 F 80 16 114/62 96 Room Air 09/15/24 04:00 09/15/24 04:00 09/15/24 04:00 09/15/24 04:00 09/15/24 04:00 09/15/24 07:45 Laboratory Results - last 24 hr 09/14/24 11:10: PT 11.5, INR 1.03 09/15/24 05:47: Sodium 138, Potassium 4.2 D, Chloride 112 H, Carbon Dioxide 15 L, Anion Gap 15.2 H, BUN 19 H, Creatinine 0.70, Estimated Creat Clear 58, Estimated GFR 82, Est GFR ( Amer) 100, Glucose 83, Calcium 7.8 L, Magnesium 2.1 D, Total Bilirubin 1.5 H, AST 107 H D, ALT 68, Alkaline Phosphatase 203 H, Total Protein 5.4 L, Albumin 2.0 L D, Globulin 3.4 H, Albumin/Globulin Ratio 0.6 L I & O for Last 24 hours: Intake & Output 09/12/24 09/13/24 09/14/24 09/15/24 11:59 11:59 11:59 11:59 Intake Total 100 / 100 443 / 443 660 / 660 270 / 270 Output Total 200 / 200 700 / 700 90 / 90 0 / 0 Balance -100 / -100 -257 / -257 570 / 570 270 / 270 Weight 157 lb 6 oz 158 lb 12.8 oz 159 lb 155 lb 14.4 oz *Routine Abdominal Exam Abdominal: Present soft Comments: Slightly distended. Nontender. Progress Note: A&P Assessment and plan (1) Hypothyroid: Status: Chronic (2) Transaminitis: Status: Acute (3) Complete obstruction of small intestine: Status: Acute Assessment and plan: Follow-up films today. Awaiting final report. May be able to discharge with outpatient follow-up soon. May need outpatient evaluation for possible liver disease, capsule endoscopy, colonoscopy. (4) Nausea: Status: Acute
[2024-09-15 08:13] LABS: HBsAg Screen Negative (Negative); HCV Ab Non Reactive (Non Reactive); Hep A Ab, IGM Negative (Negative); Hep B Core Ab, IgM Negative (Negative)
[2024-09-15 09:06] LABS: Basophils % 0.5 % (0.1-2.0); Eosinophils % 0.2 % (0.1-12.0); Hematocrit 33.8 % (37.0-47.0); Lymphocytes # 0.9 K/mm3 (0.7-4.5); Lymphocytes % 14.4 % (10-50); Mean Corpuscular HGB Conc 29.6 g/dL (31.8-35.4); Mean Corpuscular Hemoglobin 24.6 pg (27.0-31.2); Mean Platelet Volume 9.5 fl (7.4-10.4); Monocytes # 0.3 K/mm3 (0.1-1.0); Monocytes % 4.7 % (1.7-9.3); Neutrophils % 79.1 % (37.0-80.0); Nucleated Red Blood Cells # 0.03 10^3/uL; Nucleated Red Blood Cells % 0.5 %; Platelet Count 294 K/mm3 (142-424); Red Blood Count 4.07 M/mm3 (4.20-5.40); Red Cell Distribution Width 24.7 % (11.5-17.5); Red Cell Distribution Width-SD 65.5 fL; White Blood Count 6.3 K/mm3 (4.8-10.8)
--- NOTE | 2024-09-15 09:43 | P.DS_ITS ---
General Admission date:: 09/11/24 Discharge date: 09/15/24 HPI HPI HPI: Patient is a 69-year-old female with a history of hypothyroidism. Her only prior abdominal surgery is appendectomy. She had presented to the emergency department on 09/06/24 after transport via EMS with complaints of dizziness, vomiting, and nausea for 1 month. She had prior to that had been managed by her primary care provider with antiemetics and meclizine as an outpatient. After that ER visit she was able to be managed as an outpatient. She completed outpatient course of antibiotics for urinary tract infection. She had progress carloz weakness. She had progressive vomiting. She returned to the emergency department on 09/11/2024. Evaluation in the emergency department revealed elevation of liver function test with total bilirubin of 2.7, AST 115, ALT 102, alkaline phosphatase 203. CT scan of the abdomen pelvis was read as consistent with small bowel obstruction. She had nasogastric tube placed. She was admitted for inpatient management to the hospitalist service. Surgical consultation was obtained. She feels better this morning. Her imaging this morning revealed that the nasogastric tube was actually coiled in the esophagus. It was removed. She has tolerated this. Unclear if the patient has had prior colonoscopy. Hospital Course Hospital Course Hospital Course: Zaira Smith is a 69-year-old female who presented with nausea and vomiting. Found to have bowel obstruction on CT. NG placed in the ED. Discussed case with ER physician, request admission for further management of bowel obstruction. Responded to decompression. Bowels began to move and obstruction has resolved with conservative management. Tolerating p.o. intake. Stable to discharge to rehab. Problems addressed as follows: #SBO #Nausea and vomiting #Transaminitis - Initially met sepsis criteria with tachycardia of 123, respiratory rate of 24, suspected infection with bowel obstruction inflammation of small intestine. Sepsis resolved. NG was placed in the ED. Had good decompression. Patient's nausea and distention resolved. Was started on antibiotics for possible enteritis and UTI. Has completed treatment for UTI. In regard to abdomen, surgery was consulted and patient had serial imaging of abdomen along with serial exams. Also had small bowel follow-through which has resolved obstruction. Having multiple bowel movements. Tolerating p.o. intake at this time. Denies any further abdominal pain, nausea, discomfort. - Patient's transaminitis mildly elevated on arrival. Stable throughout admission. RUQ ultrasound shows fatty liver disease, mild gallbladder wall thickening. However no RUQ tenderness. - Zofran 4 mg every 6 hours p.o. for nausea if needed. - Continue diet advancement. Advance to low residue diet. Do not Stanley further until follows up with surgery as an outpatient. Abdominal imaging continues to show some mild distention but does have bowel gas throughout the colon, having multiple bowel movements a day. Denies any pain, nausea, discomfort. #Physical deconditioning: PT/OT consulted, recommended SNF due to deconditioning. Graciously excepted by [facility] for further management. Stable to discharge for rehab. # Hypothyroidism: TSH well-controlled at 0.35, continue levothyroxine 75 mcg a day Total time spent on discharge 32 minutes in counseling, documentation, chart review, and direct care with patient. Exam Data for Last 24 hours Vital signs and Labs for Last 24 Hours: Temp Pulse Resp BP Pulse Ox O2 Del Method 98.0 F 106 H 18 133/93 H 97 Room Air 09/15/24 08:00 09/15/24 08:00 09/15/24 08:00 09/15/24 08:00 09/15/24 08:00 09/15/24 09:00 Laboratory Results - last 24 hr 09/14/24 05:44: Hepatitis A IgM Ab Negative, Hep Bs Antigen Negative, Hep B Core IgM Ab Negative, Hepatitis C Antibody Non reactive, HCV RNA PCR Test Info Comment 09/14/24 11:10: PT 11.5, INR 1.03 09/15/24 05:47: Sodium 138, Potassium 4.2 D, Chloride 112 H, Carbon Dioxide 15 L, Anion Gap 15.2 H, BUN 19 H, Creatinine 0.70, Estimated Creat Clear 58, Estimated GFR 82, Est GFR ( Amer) 100, Glucose 83, Calcium 7.8 L, Magnesium 2.1 D, Total Bilirubin 1.5 H, AST 107 H D, ALT 68, Alkaline Phosphatase 203 H, Total Protein 5.4 L, Albumin 2.0 L D, Globulin 3.4 H, Albumin/Globulin Ratio 0.6 L 09/15/24 09:00: WBC 6.3 D, RBC 4.07 L, Hgb 10.0 L, Hct 33.8 L, MCV 83.0, MCH 24.6 L, MCHC 29.6 L, RDW 24.7 H, Plt Count 294, MPV 9.5, Neut % (Auto) 79.1, Lymph % (Auto) 14.4, Cochran % (Auto) 4.7, Eos % (Auto) 0.2, Baso % (Auto) 0.5, Neut # (Auto) 5.0, Lymph # (Auto) 0.9, Cochran # (Auto) 0.3, Eos # (Auto) 0.0, Baso # (Auto) 0.0 I & O for Last 24 hours: Intake & Output 09/12/24 09/13/24 09/14/24 09/15/24 23:59 23:59 23:59 23:59 Intake Total 543 / 543 540 / 660 290 / 390 460 / 460 Output Total 650 / 650 250 / 340 90 / 90 0 / 0 Balance -107 / -107 290 / 320 200 / 300 460 / 460 Weight 71.384 kg 72.03 kg 72 kg 70.715 kg Constitutional Constitutional: no acute distress, obese, chronically ill appearing and cooperative *Routine HEENT Exam Head: Present normocephalic Eye: Present EOMI and PERRL ENT: Present mucous membranes moist *Routine Neck Exam Neck: Present supple; Absent lymphadenopathy *Routine Respiratory Exam Respiratory: Present CTA bilaterally; Absent respiratory distress, rhonchi, stridor, wheezes or crackles *Routine Cardiovascular Exam Cardiovascular: Present RRR *Routine Abdominal Exam Abdominal: Present soft and normoactive bowel sounds; Absent tenderness *Routine Rectal Exam Patient deferred: visual exam *Routine Exam Patient deferred: external exam *Routine Extremities Exam Extremities: Absent cyanosis, clubbing or edema *Routine Skin Exam Skin: Present intact and warm; Absent rash *Routine Neurological Exam Neurological: Present alert, oriented X3 and moving all extremities; Absent altered mental status Comments: Globally weak Results Data Completed and Pending Labs on day of discharge: Labs from last 24 hours 09/15/24 09/15/24 09/14/24 09:00 05:47 11:10 WBC 6.3 D RBC 4.07 L Hgb 10.0 L Hct 33.8 L MCV 83.0 MCH 24.6 L MCHC 29.6 L RDW 24.7 H Plt Count 294 MPV 9.5 Neut % (Auto) 79.1 Lymph % (Auto) 14.4 Cochran % (Auto) 4.7 Eos % (Auto) 0.2 Baso % (Auto) 0.5 Neut # (Auto) 5.0 Lymph # (Auto) 0.9 Cochran # (Auto) 0.3 Eos # (Auto) 0.0 Baso # (Auto) 0.0 PT 11.5 INR 1.03 Sodium 138 Potassium 4.2 D Chloride 112 H Carbon Dioxide 15 L Anion Gap 15.2 H BUN 19 H Creatinine 0.70 Estimated Creat Clear 58 Estimated GFR 82 Est GFR ( Amer) 100 Glucose 83 Calcium 7.8 L Magnesium 2.1 D Total Bilirubin 1.5 H AST 107 H D ALT 68 Alkaline Phosphatase 203 H Total Protein 5.4 L Albumin 2.0 L D Globulin 3.4 H Albumin/Globulin Ratio 0.6 L Hepatitis A IgM Ab Hep Bs Antigen Hep B Core IgM Ab Hepatitis C Antibody HCV RNA PCR Test Info 09/14/24 05:44 WBC RBC Hgb Hct MCV MCH MCHC RDW Plt Count MPV Neut % (Auto) Lymph % (Auto) Cochran % (Auto) Eos % (Auto) Baso % (Auto) Neut # (Auto) Lymph # (Auto) Cochran # (Auto) Eos # (Auto) Baso # (Auto) PT INR Sodium Potassium Chloride Carbon Dioxide Anion Gap BUN Creatinine Estimated Creat Clear Estimated GFR Est GFR ( Amer) Glucose Calcium Magnesium Total Bilirubin AST ALT Alkaline Phosphatase Total Protein Albumin Globulin Albumin/Globulin Ratio Hepatitis A IgM Ab Negative Hep Bs Antigen Negative Hep B Core IgM Ab Negative Hepatitis C Antibody Non reactive HCV RNA PCR Test Info Comment Preliminary micro results at discharge 09/11/24 12:44 Blood Culture - Preliminary Blood NO GROWTH AFTER 48 HOURS 09/11/24 12:01 Blood Culture - Preliminary Blood NO GROWTH AFTER 48 HOURS DS: Diagnosis Discharge Diagnosis (1) Hypothyroid: Status: Chronic Code(s): E03.9 - Hypothyroidism, unspecified (2) Transaminitis: Status: Acute Code(s): R74.01 - Elevation of levels of liver transaminase levels (3) Complete obstruction of small intestine: Status: Acute Code(s): K56.601 - Complete intestinal obstruction, unspecified as to cause (4) Nausea: Status: Acute Code(s): R11.0 - Nausea Meds Home Medications and Allergies Home Medications ?Medication ?Instructions ?Recorded ?Confirmed ?Type levothyroxine 75 mcg tablet 75 mcg PO DAILY 30 days #30 tabs 09/15/24 Rx ondansetron HCl 4 mg tablet 4 mg PO Q6HP PRN Nausea 30 days 09/15/24 Rx #30 tabs New Prescriptions to Start Prescriptions: levothyroxine Shaquille Mg ondansetron HCl Shaquille Mg Allergies Allergy/AdvReac Type Severity Reaction Status Date / Time No Known Allergies Allergy Verified 09/06/24 17:32 Discharge Plan Disposition Patient Disposition: [facility] SN[facility] Condition: Fair Discharge Order Discharge Orders: Discharge Order (Routine); Ordered 09/15/24 Ordered By: Shaquille Mg Follow up Plan Follow up with: Everett Vargas MD [Staff Physician] - 09/22/24 10:15 am Prescriptions/Medication Reconciliation: Continued ondansetron HCl 4 mg tablet 4 mg PO Q6HP PRN (Reason: Nausea) 30 Days Qty: 30 0RF levothyroxine 75 mcg tablet 75 mcg PO DAILY 30 Days Qty: 30 0RF Discontinued dicyclomine 10 mg capsule 10 mg PO TID 7 Days Qty: 21 0RF nitrofurantoin monohyd/m-cryst [Macrobid] 100 mg capsule 100 mg PO BID 5 Days Qty: 10 0RF Rx Instructions: must administer with a meal/food Problem Reconciliation Problems Reviewed?: Yes Patient Discharge Instructions ACTIVITY: Continue current activity DIET: continue same diet and advance to your usual diet Additional Instructions: Please advance to low residue diet, do not advance further until follow-up with surgery. Patient Instructions: Small Bowel Obstruction Print Language: Tongan Providers Primary Care Provider: Marlyn Daley Admit Provider: Shaquille Mg Attending Provider: Shaquille Mg
--- NOTE | 2024-09-15 10:08 | PC.NURSE ---
Pt's person to notify has been told that pt would be going to [facility] today. I asked if she would be able to take her to nursing facility and she said she would be here soon.
--- NOTE | 2024-09-15 10:33 | PC.NURSE ---
REPORT GIVEN TO ANIYAH LUCIO AT [facility]
== END 2024-09-15 10:47 | DRG 872 ==
LOC: ER 14:28 → 2ND 15:26
PROVIDERS: Student in an Organized Health Care Education/Training Program; Admitting Provider Internal Medicine Adolescent Medicine; Emergency Provider Emergency Medicine; PCP Nurse Practitioner; Visit Provider Internal Medicine Adolescent Medicine
DX: A41.9 Sepsis, unspecified organism (principal); K56.600 Partial intestinal obstruction, unspecified as to cause; N39.0 Urinary tract infection, site not specified; E86.0 Dehydration; E03.9 Hypothyroidism, unspecified; R74.01 Elevation of levels of liver transaminase levels; Z79.899 Other long term (current) drug therapy
CPT/HCPCS: 36415; 71045; 74018; 74021; 74177; 74250; 76705; 80053; 80074; 81001; 82550; 83605; 83735; 84436; 84443; 84484; 85025; 85610; 86140; 86803; 87040; 87086; 87633; 93005; 97163; 97166; 99285; J1650; J2405; J2543; J2765; J3370; J3372; J3480; J7030; J7120; Q9963; Q9967

== ENCOUNTER 2024-09-20 11:14 | Observation (INO) | payer MEDICARE, SELFPAY ==
[2024-09-20] VITALS (10 sets, daily range): BP systolic 116–132; BP diastolic 70–85; PULSE 91–104; RESP 14–20; TEMP 36.4–37.1; O2SAT 91–99; BMI 29.2
--- NOTE | 2024-09-20 11:26 | ED_ITS ---
Discharge Plan Disposition Patient Disposition: Admitted Condition: Good Chief Complaint: Recheck/Abnormal Lab/Rx Clinical Impressions Clinical Impression: SBO (small bowel obstruction) Discharge ED Provider: Rafael Webber General Adult HPI General Chief complaint: Recheck/Abnormal Lab/Rx Stated complaint: poss bowel obstruction Time Seen by Provider: 09/20/24 11:26 Mode of Arrival: EMS Source of Information: Patient Description of Symptoms (Recalled from ER Triage Doc. by RN): Patient with no complaints at this time. Does state that her stomach was bubbly earlier but after the halfway cathed her that went away. senior living states that they gave the patient a liter of fluids yesterday and that she did not urinate so they cathed her today and had 250cc out. Also states that she has had bowel movements regularly and that her bowel sounds are hyperactive. History of Present Illness HPI narrative: 69-year-old female past medical history of hypothyroidism, prior surgical history of appendectomy presents to ED via EMS due to hyperactive bowel sounds, weakness, abdominal pain which resolved after having urinary catheter placed at care facility. Patient was recently discharged from hospital medicine service on 09/15 after being found to have small bowel obstruction had NG tube placed at that time was admitted for inpatient management, surgical consult was obtained at that time ultimately patient had serial abdominal exams, responded to decompression, bowels began to move obstruction resolved with conservative management. Today patient denies significant abdominal pain but states that she has not passed flatus in approximately 24 hours is not having bowel movements at this time. Denies dysuria, fever, chest pain, shortness of breath, other symptoms or concerns at this time. Is not nauseous. Please note that above description of symptoms, in this electronic medical record under categorization of recalled from ER triage doctor by RN are reflective of an initial nursing assessment, however, is not reflective of my full history and physical exam that was personally taken and clarified. Consequentially, this preceding description of symptoms, which may include the patient's categorized chief complaint in the EMR, do not reflect my personal clinical impression, and the ultimate description of history of present illness and patient stated complaints should be deferred to this section of the note. Unless stated otherwise or congruent with this section of the note, additional signs, symptoms, or incongruence should be interpreted as inaccurate with my clinical impression. Related Data Previous Rx's ?Medication ?Instructions ?Recorded levothyroxine 75 mcg tablet 75 mcg PO DAILY 30 days #30 tabs 09/15/24 ondansetron HCl 4 mg tablet 4 mg PO Q6HP PRN Nausea 30 days 09/15/24 #30 tabs Allergies Allergy/AdvReac Type Severity Reaction Status Date / Time No Known Allergies Allergy Verified 09/06/24 17:32 [facility] Disclaimer: The information contained in this section may have been updated after the patient was seen, as this information can be updated by other users. Surgical History Hx of partial thyroidectomy History of surgery on lower extremity Hx of appendectomy Family History Other Lung cancer Renal failure Social History Smoking Status: Never smoker alcohol intake: never current occupational status: unemployed Travel in the last 8 weeks?: None Have you lived/traveled outside [place] in past 30 days?: No Contact w/someone who lives/traveled outside US past 30 days?: No Exposure to someone with infectious disease in past 14 days?: No Do you have a fever (greater than 100.4 F or 38 C)?: No Have you tested positive for COVID-19?: No Exposed to someone with COVID-19 in past 14 days?: No Do you have a sore throat?: No Do you have a cough?: No Do you have any weakness?: No Do you have any diarrhea?: No Are you experiencing any unusual bleeding?: No Do you have any muscle aches/pain?: No Do you have any abdominal pain?: No Are you experiencing loss of taste or smell?: No Other Medical History Have you received the Flu Vaccine for this season: No Have you received the Pneumonia Vaccine: No ROS Obtained: Yes Systems reviewed as appropriate & no additional complaints except as documented Physical Exam General General appearance: alert and in no apparent distress Head Head exam: atraumatic and normocephalic Eye Eye exam: Present normal appearance and EOMI ENT ENT exam: Present normal exam Neck Neck exam: Present normal inspection Chest Chest inspection: Present normal inspection and symmetric chest wall rise Respiratory Respiratory exam: Present normal lung sounds bilaterally Cardiovascular Cardiovascular exam: Present regular rate, normal rhythm and normal heart sounds Abdominal Exam Abdominal exam: Present soft, distention and hypoactive bowel sounds; Absent tenderness, guarding, rebound or rigidity Extremities Exam Extremities exam: Present normal inspection and full ROM; Absent tenderness Back Exam Back exam: Present normal inspection Neurological Exam Neurological exam: Present alert and oriented X3 Psychiatric Psychiatric exam: Present normal affect and normal mood Skin Skin exam: Present warm, dry, intact and normal color; Absent rash Medical Decision Making Medical Records Medical records reviewed: Yes I reviewed the patient's medical records. Screening: Per USPSTF and CDC recommendations, given the prevalence of disease in our region, it is our hospital?s policy to screen for HIV and viral Hepatitis for all patients aged 18 and over and those with ongoing risk factors. Samuel Inquiry Pt receiving controlled substance: No Vital Signs: 09/20/24 11:18 09/20/24 11:30 09/20/24 12:00 Temperature 97.9 F Temperature Source Oral Pulse Rate 104 H 102 H Pulse Rate [Radial] 104 H Respiratory Rate 18 Blood Pressure 120/80 116/84 Blood Pressure [Right Arm] 117/75 Blood Pressure Mean [Right Arm] 89 Blood Pressure Source [Right Arm] Automatic Cuff Blood Pressure Position [Right Arm] Sitting 02 Sat by Pulse Oximetry 99 99 97 Oxygen Delivery Method Room Air Room Air Room Air 09/20/24 12:30 09/20/24 13:00 09/20/24 13:30 Temperature Temperature Source Pulse Rate 91 H 96 H 93 H Pulse Rate [Radial] Respiratory Rate 14 18 20 Blood Pressure 132/70 119/82 116/77 Blood Pressure [Right Arm] Blood Pressure Mean [Right Arm] Blood Pressure Source [Right Arm] Blood Pressure Position [Right Arm] 02 Sat by Pulse Oximetry 95 91 L 97 Oxygen Delivery Method Room Air Room Air Room Air Lab Data Lab Results 09/20/24 11:25: WBC 6.0, RBC 4.01 L, Hgb 10.7 L, Hct 35.9 L, MCV 89.5, MCH 26.7 L, MCHC 29.8 L, RDW 28.1 H*, Plt Count 366, MPV 9.5, Neut % (Auto) 75.3, Lymph % (Auto) 14.6, Lander % (Auto) 7.6, Eos % (Auto) 0.3, Baso % (Auto) 0.7, Neut # (Auto) 4.5, Lymph # (Auto) 0.9, Lander # (Auto) 0.5, Eos # (Auto) 0.0, Baso # (Auto) 0.0, PT 11.6, INR 1.04, APTT 26.3, Sodium 132 L, Potassium 3.6, Chloride 106, Carbon Dioxide 24, Anion Gap 5.6, BUN 21 H, Creatinine 0.70, Estimated Creat Clear 55, Estimated GFR 82, Est GFR ( Amer) 100, Glucose 95, Lactate 1.0, Calcium 7.6 L, Total Bilirubin 1.7 H, AST 45 H, ALT 50, Alkaline Phosphatase 239 H, Troponin I < 0.01, Total Protein 5.5 L, Albumin 2.3 L, Globulin 3.2, Albumin/Globulin Ratio 0.7 L, Lipase 33 09/20/24 11:25 09/20/24 11:25 Orders (Tests/Meds): ED MEDICATIONS Generic Name Dose Route Start Last Admin Trade Name Freq PRN Reason Stop Dose Admin Sodium Chloride 10 ml 09/20/24 12:20 09/20/24 12:20 Sodium Chloride 0.9% 10ml Syr (Rad Only) IV 10/20/24 12:19 10 ml NEEDED PRN Administration Maintain IV Site Discontinued Medications Generic Name Dose Route Start Last Admin Trade Name Freq PRN Reason Stop Dose Admin Lactated Ringer's 1,000 mls @ 999 mls/hr 09/20/24 11:50 09/20/24 11:58 Lactated Ringer's 1000 Ml Bag IV 09/20/24 12:50 999 mls/hr .Q1H1M ONE Administration Iopamidol 75 ml 09/20/24 12:20 09/20/24 12:20 Iopamidol-370 (76%);100ml Bottle IV 09/20/24 12:21 75 ml ONCE ONE Administration ORDERS Category Date Time Status CT abdomen pelvis w con Stat Cat Scan 09/20/24 11:49 Completed Surgery Consult (on-call) [Consult to On-Call Gen'l Cons 09/21/24 07:00 Ordered Surgeon] [CONS] Routine Activated Partial Thrombo Time Stat Lab 09/20/24 11:25 Completed Complete Blood Count Auto Diff AMLAB Lab 09/21/24 06:00 Ordered Complete Blood Count Auto Diff Stat Lab 09/20/24 11:25 Completed Comprehensive Metabolic Panel AMLAB Lab 09/21/24 06:00 Ordered Comprehensive Metabolic Panel Stat Lab 09/20/24 11:25 Completed Lactic Acid Stat Lab 09/20/24 11:25 Completed Lipase Stat Lab 09/20/24 11:25 Completed Magnesium AMLAB Lab 09/21/24 06:00 Ordered Prothrombin Time INR Stat Lab 09/20/24 11:25 Completed Troponin I Q3H Lab 09/20/24 15:00 Ordered Troponin I Q3H Lab 09/20/24 18:00 Ordered Troponin I Stat Lab 09/20/24 11:25 Completed Urinalysis and Microscopic Stat Lab 09/20/24 11:49 Ordered Urine Culture Stat Micro 09/20/24 11:49 Ordered ECG Data Tracing #1: I reviewed this ECG and interpreted as documented below: EKG with normal sinus rhythm, left axis deviation, normal intervals, no noted ST elevation Medical Decision Narrative: Patient with history and exam per above presenting for evaluation of hyperactive bowel sounds, reported ongoing weakness since discharge from hospital, abdominal pain which resolved after Welch catheter was placed at nursing care facility?approximately 250 mL reported to be drained at that time per EMS report. Recent admission and discharged from hospital due to small bowel obstruction which responded to decompression and conservative management Diagnoses considered include small bowel obstruction, UTI, ACS, gastritis, electrolyte abnormality, among others ED workup and treatment included: As above Labs were independently interpreted by me, significant for No leukocytosis, stable chronic anemia, no thrombocytopenia. Mild hyponatremia, no noted EDDI, total bilirubin 1.7, AST mildly elevated at 45, ALT within normal limits, alkaline phosphatase 239, negative troponin, lipase within normal limits. Imaging was independently visualized and interpreted by me, significant for high-grade bowel obstruction, transition point likely in pelvis however I cannot fully visualize, fatty liver disease. NG tube placed. Consulting general surgery. Please refer to radiology report for full details. My clinical impression at this time is most consistent with small bowel obstruction, hyponatremia, hyperbilirubinemia. Discussed patient with Dr. Kwok with general surgery who recommended conservative management and surgery will plan to see patient tomorrow. Spoke with Dr. Mg from hospital medicine service who agreed with admission to hospital medicine. Patient admitted in hemodynamically stable condition. I discussed my clinical impression with patient and answered all questions. At this time, the evidence for any other entities in the differential is insufficient to warrant any further testing or ED observation. This was explained to the patient. The patient was advised that persistent or worsening symptoms require further evaluation. Critical Care Critical Care Time Critical Care Time: Yes Attestation: On 09/20/24, the high probability of a clinically significant, sudden or life threatening deterioration of the following system(s) required my full and direct attention, intervention and personal management. The time I documented below is in addition to time spent performing reported procedures but includes the following listed in this critical care notation. Total Time Total Critical Care Time: 35
--- NOTE | 2024-09-20 11:49 | CT_ITS ---
PROCEDURE INFORMATION: Exam: CT Abdomen And Pelvis With Contrast Exam date and time: 09/20/2024 12:13 PM Age: 69 years old Clinical indication: Other: No passing flatus; Additional info: Concern for sbo, no passing flatus TECHNIQUE: Imaging protocol: Computed tomography of the abdomen and pelvis with contrast. Radiation optimization: All CT scans at this facility use at least one of these dose optimization techniques: automated exposure control; mA and/or kV adjustment per patient size (includes targeted exams where dose is matched to clinical indication); or iterative reconstruction. Contrast material: ISOVUE; Contrast volume: 75 ml; Contrast route: IV; COMPARISON: CT ABDOMEN PELVIS W CON 11/09/2024 12:31 FINDINGS: Lungs: Atelectasis and/or scarring in the lung bases. Diaphragm: Moderate hiatal hernia. Liver: Moderate to severe fatty liver. Gallbladder and biliary ducts: Normal. No calcified stones. No ductal dilation. Pancreas: Atrophic pancreas. Spleen: Normal. No splenomegaly. Adrenal glands: Normal. No mass. Kidneys and ureters: Bilateral kidney cortical thinning. Bilateral simple appearing kidney cysts with the largest measuring 4.5 cm. Stomach and bowel: Dilated fluid-filled loops of small bowel in the abdomen and pelvis measuring up to 4.4 cm; the distal small bowel is decompressed. Fairly decompressed colon, containing stool. Appendix: No evidence of appendicitis. Intraperitoneal space: Unremarkable. No free air. No significant fluid collection. Vasculature: Atherosclerosis. Lymph nodes: Unremarkable. No enlarged lymph nodes. Urinary bladder: Unremarkable as visualized. Reproductive: Unremarkable as visualized. Bones/joints: Degenerative change of the spine, pelvis and hips. Soft tissues: Subcutaneous edema. IMPRESSION: 1. Mid to distal high-grade partial small bowel obstruction. The transition point is not visualized, but is favored to be in the pelvis. 2. Moderate to severe fatty liver. 3. Additional chronic/nonemergent findings as detailed above. COMMENTS: Consistent with the [employer]'s Incidental Findings Committee white paper (J Am Be Radiol 2018): Any incidental renal lesion less than 1 cm or classified as too small to characterize, or any incidental cystic renal lesion characterized as simple-appearing, is likely benign. No follow-up imaging is recommended for these lesions per consensus recommendations based on imaging criteria.
[2024-09-20 11:56] LABS: Basophils % 0.7 % (0.1-2.0); Eosinophils % 0.3 % (0.1-12.0); Hematocrit 35.9 % (37.0-47.0); Hemoglobin 10.7 g/dL (12.2-16.2); Lymphocytes # 0.9 K/mm3 (0.7-4.5); Lymphocytes % 14.6 % (10-50); Mean Corpuscular HGB Conc 29.8 g/dL (31.8-35.4); Mean Corpuscular Hemoglobin 26.7 pg (27.0-31.2); Mean Corpuscular Volume 89.5 fl (81-99); Mean Platelet Volume 9.5 fl (7.4-10.4); Monocytes # 0.5 K/mm3 (0.1-1.0); Monocytes % 7.6 % (1.7-9.3); Neutrophils # 4.5 K/mm3 (1.8-7.8); Neutrophils % 75.3 % (37.0-80.0); Nucleated Red Blood Cells # 0.08 10^3/uL; Nucleated Red Blood Cells % 1.3 %; Platelet Count 366 K/mm3 (142-424); Red Blood Count 4.01 M/mm3 (4.20-5.40); Red Cell Distribution Width-SD 87.1 fL
[2024-09-20] MEDS: LACTATED RINGERS 1000ML 1,000 ML 999 ML IV (11:58)
--- NOTE | 2024-09-20 11:58 | ECG_ITS ---
APPROVED REPORT Exam: Resting ECG HR:98 bpm ECG Measurements Heart Rate 98 AXES [place] 163 P -39 QRSd 80 QRS -34 QT 348 T 61 QTc 403 Conclusion Normal sinus rhythm, left axis deviation, normal intervals, no noted ST elevation Electronically signed by : Rafael Webber, 09/20/2024 14:13:42
[2024-09-20 11:59] LABS: Albumin Level 2.3 g/dl (3.5-5.0); Chloride 106 mmol/L (98-107); Potassium 3.6 mmoL/L (3.5-5.1); Sodium 132 mmol/L (136-145)
[2024-09-20 12:02] LABS: Alanine Aminotransferase 50 U/L (12-78); Albumin/Globulin Ratio 0.7 (1.1-1.8); Alkaline Phosphatase 239 U/L (38-126); Anion Gap 5.6 mEq/L (5-15); Aspartate Amino Transferase 45 U/L (14-36); Bilirubin,Total 1.7 mg/dl (0.2-1.3); Blood Urea Nitrogen 21 mg/dl (7-17); Carbon Dioxide 24 mmol/L (22.0-30.0); Creatinine Clearance Estimated 55 mL/min (50-200); Estimated Glomerular Filt Rate 82 ml/min (>60); GFR (African American) 100 ML/MIN (>60); Globulin 3.2 g/dL (1.3-3.2); Glucose 95 mg/dl (74-100); Lipase 33 U/L (23-300); Red Cell Distribution Width 28.1 % (11.5-17.5); Total Protein,Serum 5.5 g/dl (6.3-8.2)
[2024-09-20 12:03] LABS: Calcium 7.6 mg/dl (8.4-10.2); INR 1.04 (0.9-1.1); Prothrombin Time 11.6 seconds (10.1-12.5)
--- NOTE | 2024-09-20 12:06 | PC.NURSE ---
pt going for CT at this time via stretcher
[2024-09-20] MEDS: SODIUM CHLORIDE 0.9% 10ML SYR (RAD ONLY) 10 ML IV (12:20)
[2024-09-20] MEDS: IOPAMIDOL-370 (76%);100ML BOTTLE 75 ML IV (12:20)
[2024-09-20 12:21] LABS: Troponin I < 0.01 ng/ml (0.00-0.034)
[2024-09-20 12:23] LABS: Activated Partial Thrombo Time 26.3 seconds (22.8-30.6)
--- NOTE | 2024-09-20 13:08 | PC.NURSE ---
Dr Webber s/w JARED for critical findings on CT scan
--- NOTE | 2024-09-20 13:57 | P.HP_ITS ---
History of Present Illness *Admission Date: 09/20/24 *Reason for visit:: Decrease stool output, increased abdominal distention *History of present illness: Mr. Smith is a 69-year-old female with hypothyroid. Was recently admitted to our facility for SBO that was managed conservatively. Began having bowel movements and tolerance of advancement of diet. Was discharged to skilled therapy for further management. She presents via EMS to the ER because of her stomach being bubbly and no bowel movement in the past 24 hours. Nursing facility gave her a liter of fluid yesterday because of an episode of low blood pressure. She had minimal urine output. On arrival to the ER, patient is alert and oriented. Denies any significant abdominal pain, nausea, shortness of breath. Workup with CT of abdomen showing concern for persistent SBO. Labs otherwise nonactionable and stable if not better compared to last visit. Because of SBO on imaging, medicine was consulted for admission and further management. On arrival to the floor, patient states she just had a small bowel movement. This was confirmed by nursing. She is stable on room air. Intolerant of placement of NG due to discomfort. Denies fever, dysuria, chest pain, nausea. Family at bedside. At baseline mentation [facility] Disclaimer: The information contained in this section may have been updated after the patien t was seen, as this information can be updated by other users. Surgical History Hx of partial thyroidectomy History of surgery on lower extremity Hx of appendectomy Family History Other Lung cancer Renal failure Social History Smoking Status: Never smoker alcohol intake: never current occupational status: unemployed Travel in the last 8 weeks?: None Have you lived/traveled outside US in past 30 days?: No Contact w/someone who lives/traveled outside US past 30 days?: No Exposure to someone with infectious disease in past 14 days?: No Do you have a fever (greater than 100.4 F or 38 C)?: No Have you tested positive for COVID-19?: No Exposed to someone with COVID-19 in past 14 days?: No Do you have a sore throat?: No Do you have a cough?: No Do you have any weakness?: No Do you have any diarrhea?: No Are you experiencing any unusual bleeding?: No Do you have any muscle aches/pain?: No Do you have any abdominal pain?: No Are you experiencing loss of taste or smell?: No Other Medical History Have you received the Flu Vaccine for this season: No Have you received the Pneumonia Vaccine: No Review of Systems Review of Systems Review of systems (narrative): 14 point review of systems performed, pertinent positives and negatives as per [facility] Meds Home Medications and Allergies Home Medications ?Medication ?Instructions ?Recorded ?Confirmed ?Type levothyroxine 75 mcg tablet 75 mcg PO DAILY 30 days #30 tabs 09/15/24 09/20/24 Rx ondansetron HCl 4 mg tablet 4 mg PO Q6HP PRN Nausea 30 days 09/15/24 09/20/24 Rx #30 tabs acetaminophen 325 mg tablet 650 mg PO Q6HP PRN Pain, Mild 09/20/24 09/20/24 History (Tylenol) aluminum-mag hydroxide-simethicone 30 ml PO TID Indigestion 09/20/24 09/20/24 History 400 mg-400 mg-40 mg/5 mL oral susp (Mylanta Maximum Strength) New Prescriptions to Start Prescriptions: Allergies Allergy/AdvReac Type Severity Reaction Status Date / Time No Known Allergies Allergy Verified 09/06/24 17:32 Exam Data for Last 24 hours Vital signs and Labs for Last 24 Hours: Temp Pulse Resp BP Pulse Ox O2 Del Method 97.9 F 93 H 20 116/77 97 Room Air 09/20/24 11:18 09/20/24 13:30 09/20/24 13:30 09/20/24 13:30 09/20/24 13:30 09/20/24 13:30 Laboratory Results - last 24 hr 09/20/24 11:25: WBC 6.0, RBC 4.01 L, Hgb 10.7 L, Hct 35.9 L, MCV 89.5, MCH 26.7 L, MCHC 29.8 L, RDW 28.1 H*, Plt Count 366, MPV 9.5, Neut % (Auto) 75.3, Lymph % (Auto) 14.6, [place] % (Auto) 7.6, Eos % (Auto) 0.3, Baso % (Auto) 0.7, Neut # (Auto) 4.5, Lymph # (Auto) 0.9, [place] # (Auto) 0.5, Eos # (Auto) 0.0, Baso # (Auto) 0.0, PT 11.6, INR 1.04, APTT 26.3, Sodium 132 L, Potassium 3.6, Chloride 106, Carbon Dioxide 24, Anion Gap 5.6, BUN 21 H, Creatinine 0.70, Estimated Creat Clear 55, Estimated GFR 82, Est GFR ( Amer) 100, Glucose 95, Lactate 1.0, Calcium 7.6 L, Total Bilirubin 1.7 H, AST 45 H, ALT 50, Alkaline Phosphatase 239 H, Troponin I < 0.01, Total Protein 5.5 L, Albumin 2.3 L, Globulin 3.2, Albumin/Globulin Ratio 0.7 L, Lipase 33 I & O for Last 24 hours: Intake & Output 09/17/24 09/18/24 09/19/24 09/20/24 23:59 23:59 23:59 23:59 Weight 68.039 kg Constitutional Constitutional: no acute distress, average body habitus, chronically ill appearing and cooperative *Routine HEENT Exam Head: Present normocephalic Eye: Present EOMI and PERRL ENT: Present mucous membranes moist *Routine Neck Exam Neck: Present supple; Absent lymphadenopathy *Routine Respiratory Exam Respiratory: Present CTA bilaterally *Routine Cardiovascular Exam Cardiovascular: Present RRR *Routine Abdominal Exam Abdominal: Present soft and normoactive bowel sounds; Absent tenderness, distended or rebound *Routine Rectal Exam Rectal:: deferred *Routine Genitalia Exam Genitalia:: deferred *Routine Extremities Exam Extremities: Absent cyanosis, clubbing or edema *Routine Skin Exam Skin: Present warm; Absent rash *Routine Neurological Exam Neurological: Present alert, oriented X3 and moving all extremities; Absent alte red mental status Assessment and Plan *Assessment and plan (1) SBO (small bowel obstruction): Status: Acute Category: Medical Code(s): K56.609 - Unspecified intestinal obstruction, unspecified as to partial versus complete obstruction (2) Hypothyroid: Status: Chronic Category: Medical Code(s): E03.9 - Hypothyroidism, unspecified (3) Nausea: Status: Acute Category: Medical Code(s): R11.0 - Nausea (4) Failure to thrive: Status: Acute Category: Medical Plan Zaira Smith is a 69-year-old female who presented from her [facility] due to abdominal distention and no bowel movement in 24 hours. She was just discharged on the of last month with resolution of SBO. Discharged to rehab because of weakness and debility. Discussed case with ER, request admission for recurrent SBO. I agreed to admit for further management. Upon arrival to the floor, patient had small bowel movement. Will monitor overnight. Intolerant of placement of NG but denies any nausea or vomiting. Problems addressed as follows: #SBO #Transaminitis - Per my review of CT, has dilated loops of small bowel but no clear transition point. -Intolerant of placement of NG. She has no nausea or vomiting, will make n.p.o. and monitor for improvement in bowel function -Small BM at time of arrival to the floor. Will administer senna once p.o. to promote bowel function and bowel movement. Does not appear to have complete obstruction. -Consider general surgery consult in the morning pending patient's progress ? Encourage patient to ambulate, to which she is amenable. - Patient's transaminitis is improving from last admission. Reviewed imaging from last admission with right upper quadrant ultrasound showing fatty liver disease some mild gallbladder wall thickening but has no right upper quadrant pain - Zofran 4 mg every 6 hours p.o. nausea as needed. #Physical deconditioning ? PT consulted to work with patient during admission. Presented from [facility] where she was receiving skilled therapy, will return to SNF at discharge # Hypothyroidism ? TSH low 0.35. Continue levothyroxine 50 mcg daily. Full code Lovenox 40 mg subcu daily NPO
--- NOTE | 2024-09-20 14:16 | PC.NURSE ---
Report called to ANIYAH Cutler on Med Surg.
--- NOTE | 2024-09-20 14:25 | HMH.PHAINT1 ---
Pharmacy Intervention Comments: MEDICATION RECONCILIATION COMPLETED ON PATIENT USING DISCHARGE SUMMARY FROM PREVIOUS ADMISSION. -JARAD CRAWFORD, REJID
--- NOTE | 2024-09-20 15:02 | PC.NURSE ---
Multiple attempts to place NG tube. Patient requesting this nurse to stop. made aware.
[2024-09-20 15:44] LABS: Troponin I < 0.01 ng/ml (0.00-0.034)
--- NOTE | 2024-09-20 16:21 | PC.NURSE ---
pt resting supine in bed with friend at bedside. new admit this shift. NG placement attempt made numerous times in the ER with no success. per hospitalist okay to not place at this time. pt had a bm once admitted to the floor. no complaints of n/v/abd pain. purewick in place. no needs at this time. call light within reach.
[2024-09-20] MEDS: ENOXAPARIN 40MG/0.4ML SYRINGE 40 MG SUBCUT (17:25)
[2024-09-20] MEDS: SENNA 8.6MG TABLET 8.6 MG PO (17:27)
[2024-09-20 19:21] LABS: Troponin I < 0.01 ng/ml (0.00-0.034)
[2024-09-21 04:00] VITALS: BP 112/67; PULSE 96; RESP 16; TEMP 36.6; O2SAT 92; BMI 32.9
--- NOTE | 2024-09-21 05:40 | PC.NURSE ---
bladder scanned patient - RV 318ml - hospitalist contacted and waiting a few more hours to see if bladder collects more urine and patient can pee.
[2024-09-21 07:41] LABS: Basophils % 0.4 % (0.1-2.0); Eosinophils % 0.6 % (0.1-12.0); Hematocrit 31.9 % (37.0-47.0); Lymphocytes # 1.1 K/mm3 (0.7-4.5); Mean Corpuscular HGB Conc 30.1 g/dL (31.8-35.4); Mean Corpuscular Hemoglobin 27.6 pg (27.0-31.2); Mean Corpuscular Volume 91.7 fl (81-99); Mean Platelet Volume 10.1 fl (7.4-10.4); Monocytes # 0.4 K/mm3 (0.1-1.0); Monocytes % 7.5 % (1.7-9.3); Neutrophils # 3.3 K/mm3 (1.8-7.8); Neutrophils % 67.9 % (37.0-80.0); Nucleated Red Blood Cells # 0.09 10^3/uL; Nucleated Red Blood Cells % 1.8 %; Platelet Count 349 K/mm3 (142-424); Red Blood Count 3.48 M/mm3 (4.20-5.40); Red Cell Distribution Width-SD 93.5 fL; White Blood Count 4.9 K/mm3 (4.8-10.8)
--- NOTE | 2024-09-21 07:43 | SW/DCPLANNER ---
Addendum entered by [facility] 09/23/24 08:13: Per Dulce vivas/ Ashish Saravia patient can return SNF level of care today. Addendum entered by [facility] 09/22/24 15:29: Per nursing staff patient has voiced that she is not able to return home due to weakness. Patient is agreeable to return to [facility] level of care. I have notified Dulce vivas/ Ashish Saravia whom is reviewing auth. I will continue to follow up. Patient is ready for discharge today. Addendum entered by [facility] 09/22/24 12:31: Patient voiced that she prefer to return home w/ home health services rather that returning to [facility]. Family was present at the time of conversation and agreeable. I have updated Dulce vivas/ Ashish Saravia regarding situation. Patient will discharge home today w/ home health services and has requested a hospital bed. Addendum entered by [facility] 09/21/24 15:12: Per Dulce vivas/ Ashish Saravia patient's auth is good till 09/28/24. Addendum entered by [facility] 09/21/24 14:22: I have updated Ashish Saravia that patient will not return today. Original Note: This patient currently resides at [facility] level of care. I will continue to follow up w/ [facility] until patient is medically stable for discharge. Updated patient information has been faxed.
[2024-09-21 07:48] LABS: Chloride 108 mmol/L (98-107); Hemoglobin 9.6 g/dL (12.2-16.2); Red Cell Distribution Width 29.4 % (11.5-17.5)
[2024-09-21 07:49] LABS: Potassium 3.4 mmoL/L (3.5-5.1); Sodium 134 mmol/L (136-145)
[2024-09-21 07:51] LABS: Alanine Aminotransferase 38 U/L (12-78); Albumin/Globulin Ratio 0.7 (1.1-1.8); Anion Gap 4.4 mEq/L (5-15); Aspartate Amino Transferase 36 U/L (14-36); Blood Urea Nitrogen 19 mg/dl (7-17); Carbon Dioxide 25 mmol/L (22.0-30.0); Creatinine Clearance Estimated 62 mL/min (50-200); Estimated Glomerular Filt Rate 82 ml/min (>60); GFR (African American) 100 ML/MIN (>60); Globulin 2.9 g/dL (1.3-3.2); Total Protein,Serum 4.9 g/dl (6.3-8.2)
[2024-09-21 07:52] LABS: Alkaline Phosphatase 179 U/L (38-126); Bilirubin,Total 1.3 mg/dl (0.2-1.3); Calcium 7.4 mg/dl (8.4-10.2); Glucose 68 mg/dl (74-100); Magnesium 2.3 mg/dl (1.6-2.3)
[2024-09-21 08:00] VITALS: BP 114/71; PULSE 101; RESP 18; TEMP 36.4; O2SAT 92
[2024-09-21] MEDS: LEVOTHYROXINE 50MCG (0.05MG) TAB 50 MCG PO (08:27)
[2024-09-21] MEDS: SENNA 8.6MG TABLET 8.6 MG PO (08:34)
--- NOTE | 2024-09-21 11:08 | HMH.PTEV ---
Physical Therapy Evaluation Rehab PT IP Evaluation Start: 09/20/24 16:42 Freq: ONCE Status: Active Protocol: Document 09/21/24 09:45 PHORSAMANTHA (Rec: 09/21/24 11:08 PHORNE [id number]) Subjective/History History History Zaira Smith is a 69-year -old female who presented from her shelter due to abdominal distention and no bowel movement in 24 hours. She was just discharged on the of last month with resolution of SBO. Workup with CT of abdomen showing concern for persistent SBO. Pt currently lives at home alone and was independent with all ADLs and mobility prior to this condition. Pt has been most recently living in a nursing facility for skilled rehab. Subjective Subjective Pt presents resting supine in bed, and is alert and oriented x4. Pt c/o some abdominal discomfort but is willing to participate in therapy this am . Pt c/o dizziness upon sitting at EOB that did not improve ~5 minutes. Nsg notified, and pt returned to rest supine in bed with call light in reach. [facility] How much help from another person do you currently need... Turning from your back to your side A little while in a flat bed without using bedrails? Moving from lying on back to sitting on A little the side of a flat bed without using bedrails? Moving to and from a bed to a chair ( A little including a wheelchair)? Standing up from a chair using your arms A lot ? (e.g., wheelchair, bedside chair) Walking in hospital room? A lot Climbing 3-5 steps with a railing? A lot Mobility Score 15 Mobility Level [facility] Mobility Calculator Mobility 4 Move to chair/ commode Rehab PT IP Eval Objective Appearance Patient Behavior Appropriate,Cooperative Patient Orientation Person,Place,Time Difficulty following instructions none Speech Pattern Clear,Appropriate Ambulation Patient Able to Ambulate No Balance Sitting Balance Steady, safe Dynamic Sitting Balance Ability Normal Transfers Bed Transfer Ability Minimal x 2 (25% assist) Rehab PT IP prob,goals,plan Problems Date of Evaluation: 09/21/24 PT IP Problems Bed Mobility,Transfers,Gait, Balance Rehab Potential Rehab Potential Good Plan PT Intervention Plan Bed Mobility,Transfers,Gait, Balance,Therapeutic Exercise PT Plan Frequency Daily Duration LOS Discharge Goals Bed Transfer Ability Contact Guard/Hand Hold Sit to Stand Chair Transfer Ability Minimal x 1 (25% assist) Ambulation Distance (feet) 5 Discharge Plan PT Discharge Plan Patient is currently most appropriate for placement in a skilled rehab facility following d/c due to continued loss of mobility. Pt required Rabia assist x2 for all bed mobility, but demonstrated good sitting balance ~5 min at EOB with SBA and had to return to bed due to significant dizziness. Skilled acute therapy is currently indicated to improve LE and trunk strength and endurance to return to PLOF with all transfers and mobility. Eval Complexity Eval Charge Codes 53860 - High Complexity PHYSICIAN CERTIFICATION: I certify the specified therapy services for Zaira Smith are required, authorized, and reviewed every 30 days.
[2024-09-21 16:00] VITALS: BP 114/72; PULSE 104; RESP 16; TEMP 37; O2SAT 99
[2024-09-21] MEDS: FUROSEMIDE 40MG/4ML VIAL 40 MG IV (16:29)
--- NOTE | 2024-09-21 17:06 | PC.NURSE ---
PT IS RESTING IN BED. ALERT AND ORIENTED X4. APPETITE CONTINUES TO BE POOR. PURWICK IN PLACE. 1 MODERATE BOWEL MOVEMENT THIS SHIFT. 1-2+ PITTING EDEMA NOTED TO BLE. LUNG SOUNDS CLEAR. ABDOMEN SOFT/NON TENDER WITH HYPOACTIVE BOWEL SOUNDS. BATH AND LINEN CHANGE THIS SHIFT. WILL CONTINUE TO MONITOR.
--- NOTE | 2024-09-21 19:47 | P.PN_ITS ---
Subjective *Date: 09/21/24 *Time: 22:39 Interval history: Tolerating p.o. intake however feels poor in general. No other bowel movement this morning. Stable on room air. Afebrile. Medical Exam Vital signs and Labs for Last 24 Hours: Vital Signs Temp Pulse Resp BP Pulse Ox O2 Del Method 09/21/24 16:51 Room Air 09/21/24 16:00 98.6 F 104 H 16 114/72 99 Room Air 09/21/24 14:42 Room Air 09/21/24 13:00 Room Air 09/21/24 11:00 Room Air 09/21/24 08:00 Room Air 09/21/24 08:00 97.5 F L 101 H 18 114/71 92 L Room Air 09/21/24 07:54 Room Air 09/21/24 06:15 Room Air 09/21/24 05:00 Room Air 09/21/24 04:00 97.9 F 96 H 16 112/67 92 L Room Air 09/21/24 03:00 Room Air 09/21/24 01:00 Room Air 09/20/24 23:00 Room Air 09/20/24 21:00 Room Air 09/20/24 20:00 97.5 F L 91 H 16 120/85 96 Room Air 09/20/24 20:00 Room Air Intake and Output 09/21/24 09/21/24 09/21/24 07:59 15:59 23:59 Intake Total 100 / 700 480 / 700 120 / 700 Output Total 0 / 0 Balance 100 / 700 480 / 700 120 / 700 Intake: Intake, Oral Amount 100 / 700 480 / 700 120 / 700 Output: Output, Urine Amount 0 / 0 Other: Number of Unmeasured Voids 1 Number of Bowel Movements 1 Weight 76.022 kg Patient Weight 09/21/24 23:59 Weight 76.022 kg Laboratory Results - last 24 hr 09/21/24 06:34: WBC 4.9, RBC 3.48 L, Hgb 9.6 L D, Hct 31.9 L, MCV 91.7, MCH 27.6, MCHC 30.1 L, RDW 29.4 H*, Plt Count 349, MPV 10.1, Neut % (Auto) 67.9, Lymph % (Auto) 22.0, [place] % (Auto) 7.5, Eos % (Auto) 0.6, Baso % (Auto) 0.4, Neut # (Auto) 3.3, Lymph # (Auto) 1.1, [place] # (Auto) 0.4, Eos # (Auto) 0.0, Baso # (Auto) 0.0, Sodium 134 L, Potassium 3.4 L, Chloride 108 H, Carbon Dioxide 25, Anion Gap 4.4 L, BUN 19 H, Creatinine 0.70, Estimated Creat Clear 62, Estimated GFR 82, Est GFR ( Amer) 100, Glucose 68 L D, Calcium 7.4 L, Magnesium 2.3, Total Bilirubin 1.3, AST 36, ALT 38, Alkaline Phosphatase 179 H, Total Protein 4.9 L, Albumin 2.0 L D, Globulin 2.9, Albumin/Globulin Ratio 0.7 L I & O for Labs for Last 24 Hours: Intake & Output 09/18/24 09/19/24 09/20/24 09/21/24 23:59 23:59 23:59 23:59 Intake Total 700 / 700 Output Total 0 / 0 Balance 700 / 700 Weight 68.039 kg 76.022 kg Constitutional: Present no acute distress, chronically ill appearing and rodney ative Head: Present atraumatic and normocephalic ENT: Present normal exam Respiratory: Present normal respiratory effort; Absent rhonchi, wheezes or crackles Cardiac: Present Reg Rate and Rhythm GI: Present soft and normal bowel sounds; Absent distention or tenderness Extremities: Present normal inspection, full ROM and edema (1+ in BLE) Skin: Present intact; Absent erythema Neuro: Present Grossly Intact, alert, awake and moves all extremities Assessment and Plan *Assessment and plan (1) SBO (small bowel obstruction): Status: Acute Category: Medical Code(s): K56.609 - Unspecified intestinal obstruction, unspecified as to partial versus complete obstruction (2) Hypothyroid: Status: Chronic Category: Medical Code(s): E03.9 - Hypothyroidism, unspecified (3) Nausea: Status: Acute Category: Medical Code(s): R11.0 - Nausea (4) Failure to thrive: Status: Acute Category: Medical Plan Zaira Smith is a 69-year-old female who presented from her residential due to abdominal distention and no bowel movement in 24 hours. She was just discharged on the of last month with resolution of SBO. Discharged to rehab because of weakness and debility. Discussed case with ER, request admission for recurrent SBO. I agreed to admit for further management. Has had 2 bowel movement since admission. Continue to advance diet. Monitor overnight. Anticipate discharge tomorrow. Problems addressed as follows: #SBO #Transaminitis - Had a bowel movement this morning, advancing diet. Encourage bowel regimen. Initiated on docusate/senna nightly. - Administer 40 mg Lasix IV once - Encourage patient to ambulate, to which she is amenable. - White count normal at 4.9, kidney function normal with BUN 19, creatinine 0.7. - Repeat CBC, CMP, magnesium ordered for the morning - Zofran 4 mg every 6 hours p.o. nausea as needed. #Physical deconditioning ? PT consulted to work with patient during admission. Presented from residential where she was receiving skilled therapy, will return to SNF at discharge # Hypothyroidism ? TSH low 0.35. Continue levothyroxine 50 mcg daily. Full code Lovenox 40 mg subcu daily Advancing diet
[2024-09-21 20:00] VITALS: BP 117/87; PULSE 103; RESP 19; TEMP 36.5; O2SAT 95
[2024-09-22 04:00] VITALS: BP 114/75; PULSE 96; RESP 17; TEMP 36.4; O2SAT 100; BMI 31.8
[2024-09-22] MEDS: LEVOTHYROXINE 50MCG (0.05MG) TAB 50 MCG PO (06:16)
[2024-09-22 06:38] LABS: Basophils % 0.5 % (0.1-2.0); Eosinophils % 0.5 % (0.1-12.0); Hematocrit 31.9 % (37.0-47.0); Hemoglobin 9.6 g/dL (12.2-16.2); Lymphocytes # 1.1 K/mm3 (0.7-4.5); Lymphocytes % 19.3 % (10-50); Mean Corpuscular HGB Conc 30.1 g/dL (31.8-35.4); Mean Corpuscular Hemoglobin 27.7 pg (27.0-31.2); Mean Corpuscular Volume 91.9 fl (81-99); Mean Platelet Volume 10.6 fl (7.4-10.4); Monocytes # 0.4 K/mm3 (0.1-1.0); Monocytes % 6.8 % (1.7-9.3); Neutrophils # 4.1 K/mm3 (1.8-7.8); Neutrophils % 71.9 % (37.0-80.0); Nucleated Red Blood Cells % 1.7 %; Platelet Count 272 K/mm3 (142-424); Red Blood Count 3.47 M/mm3 (4.20-5.40); Red Cell Distribution Width-SD 91.6 fL; White Blood Count 5.8 K/mm3 (4.8-10.8)
[2024-09-22 06:40] LABS: Chloride 106 mmol/L (98-107); Red Cell Distribution Width 29.8 % (11.5-17.5)
[2024-09-22 06:41] LABS: Potassium 3.3 mmoL/L (3.5-5.1); Sodium 133 mmol/L (136-145)
[2024-09-22 06:43] LABS: Alanine Aminotransferase 38 U/L (12-78); Albumin/Globulin Ratio 0.7 (1.1-1.8); Anion Gap 7.3 mEq/L (5-15); Aspartate Amino Transferase 38 U/L (14-36); Blood Urea Nitrogen 24 mg/dl (7-17); Carbon Dioxide 23 mmol/L (22.0-30.0); Creatinine Clearance Estimated 60 mL/min (50-200); Estimated Glomerular Filt Rate 71 ml/min (>60); GFR (African American) 86 ML/MIN (>60)
[2024-09-22 06:44] LABS: Alkaline Phosphatase 205 U/L (38-126); Calcium 7.4 mg/dl (8.4-10.2); Glucose 84 mg/dl (74-100); Magnesium 2.3 mg/dl (1.6-2.3)
[2024-09-22 08:00] VITALS: BP 130/83; PULSE 99; RESP 18; O2SAT 96
[2024-09-22] MEDS: SENNA 8.6MG TABLET 8.6 MG PO (08:17)
--- NOTE | 2024-09-22 12:01 | PC.NURSE ---
Patient would benefit from a hospital bed to assist patient
--- NOTE | 2024-09-22 12:18 | SW/DCPLANNER ---
Addendum entered by Karo Vargas 09/22/24 14:04: [facility] is able to accept patient. Anthony Kumar Underwriter Solicitation Director Original Note: Spoke with patient about once medically stable and ready for D/C. Patient stated that she was not going back to the residential and that she is interested in home health services. I faxed patient's info to [facility]. I will update once i hear back if they can accept patient or not. Anthony Inman
--- NOTE | 2024-09-22 12:27 | CARE MANAGER ---
Addendum entered by Shelly Spence RN 09/22/24 12:29: Patient requests bed come from [facility]. Information sent. Original Note: Patient has a medical condition which requires positioning of the body in ways not feasible with an ordinary bed.
--- NOTE | 2024-09-22 12:37 | EXP.DC.SUM ---
General Admission date:: 09/20/24 HPI HPI HPI: Mr. Smith is a 69-year-old female with hypothyroid. Was recently admitted to our facility for SBO that was managed conservatively. Began having bowel movements and tolerance of advancement of diet. Was discharged to skilled therapy for further management. She presents via EMS to the ER because of her stomach being bubbly and no bowel movement in the past 24 hours. Nursing facility gave her a liter of fluid yesterday because of an episode of low blood pressure. She had minimal urine output. On arrival to the ER, patient is alert and oriented. Denies any significant abdominal pain, nausea, shortness of breath. Workup with CT of abdomen showing concern for persistent SBO. Labs otherwise nonactionable and stable if not better compared to last visit. Because of SBO on imaging, medicine was consulted for admission and further management. On arrival to the floor, patient states she just had a small bowel movement. This was confirmed by nursing. She is stable on room air. Intolerant of placement of NG due to discomfort. Denies fever, dysuria, chest pain, nausea. Family at bedside. At baseline mentation Exam Data for Last 24 hours Vital signs and Labs for Last 24 Hours: Temp Pulse Resp BP Pulse Ox O2 Del Method 97.6 F 99 H 18 130/83 96 Room Air 09/22/24 04:00 09/22/24 08:00 09/22/24 08:00 09/22/24 08:00 09/22/24 08:00 09/22/24 11:05 Laboratory Results - last 24 hr 09/22/24 05:25: WBC 5.8, RBC 3.47 L, Hgb 9.6 L, Hct 31.9 L, MCV 91.9, MCH 27.7, MCHC 30.1 L, RDW 29.8 H*, Plt Count 272, MPV 10.6 H, Neut % (Auto) 71.9, Lymph % (Auto) 19.3, [place] % (Auto) 6.8, Eos % (Auto) 0.5, Baso % (Auto) 0.5, Neut # (Auto) 4.1, Lymph # (Auto) 1.1, [place] # (Auto) 0.4, Eos # (Auto) 0.0, Baso # (Auto) 0.0, Sodium 133 L, Potassium 3.3 L, Chloride 106, Carbon Dioxide 23, Anion Gap 7.3, BUN 24 H D, Creatinine 0.80, Estimated Creat Clear 60, Estimated GFR 71, Est GFR ( Amer) 86, Glucose 84 D, Calcium 7.4 L, Magnesium 2.3, Total Bilirubin 1.0, AST 38 H, ALT 38, Alkaline Phosphatase 205 H, Total Protein 5.0 L, Albumin 2.0 L, Globulin 3.0, Albumin/Globulin Ratio 0.7 L I & O for Last 24 hours: Intake & Output 09/19/24 09/20/24 09/21/24 09/22/24 23:59 23:59 23:59 23:59 Intake Total 700 / 700 0 / 0 Output Total 700 / 1000 300 / 300 Balance 0 / -300 -300 / -300 Weight 68.039 kg 76.022 kg 73.437 kg Results Data Completed and Pending Labs on day of discharge: Labs from last 24 hours 09/22/24 05:25 WBC 5.8 RBC 3.47 L Hgb 9.6 L Hct 31.9 L MCV 91.9 MCH 27.7 MCHC 30.1 L RDW 29.8 H* Plt Count 272 MPV 10.6 H Neut % (Auto) 71.9 Lymph % (Auto) 19.3 [place] % (Auto) 6.8 Eos % (Auto) 0.5 Baso % (Auto) 0.5 Neut # (Auto) 4.1 Lymph # (Auto) 1.1 [place] # (Auto) 0.4 Eos # (Auto) 0.0 Baso # (Auto) 0.0 Sodium 133 L Potassium 3.3 L Chloride 106 Carbon Dioxide 23 Anion Gap 7.3 BUN 24 H D Creatinine 0.80 Estimated Creat Clear 60 Estimated GFR 71 Est GFR ( Amer) 86 Glucose 84 D Calcium 7.4 L Magnesium 2.3 Total Bilirubin 1.0 AST 38 H ALT 38 Alkaline Phosphatase 205 H Total Protein 5.0 L Albumin 2.0 L Globulin 3.0 Albumin/Globulin Ratio 0.7 L DS: Diagnosis Discharge Diagnosis (1) SBO (small bowel obstruction): Status: Acute Code(s): K56.609 - Unspecified intestinal obstruction, unspecified as to partial versus complete obstruction (2) Hypothyroid: Status: Chronic Code(s): E03.9 - Hypothyroidism, unspecified (3) Nausea: Status: Acute Code(s): R11.0 - Nausea (4) Failure to thrive: Status: Acute Meds Home Medications and Allergies Home Medications ?Medication ?Instructions ?Recorded ?Confirmed ?Type ondansetron HCl 4 mg tablet 4 mg PO Q6HP PRN Nausea 30 days 09/15/24 09/20/24 Rx #30 tabs acetaminophen 325 mg tablet 650 mg PO Q6HP PRN Pain, Mild 09/20/24 09/20/24 History (Tylenol) aluminum-mag hydroxide-simethicone 30 ml PO TID Indigestion 09/20/24 09/20/24 History 400 mg-400 mg-40 mg/5 mL oral susp (Mylanta Maximum Strength) levothyroxine 50 mcg tablet 50 mcg PO DAILYDM 30 days #30 tabs 09/22/24 Rx (Synthroid) New Prescriptions to Start Prescriptions: levothyroxine [Synthroid] Martin Gutierrez Allergies Allergy/AdvReac Type Severity Reaction Status Date / Time No Known Allergies Allergy Verified 09/06/24 17:32 Discharge Plan Disposition Patient Disposition: Home, Self-Care Condition: Fair Follow up Plan Follow up with: Thuy (ED)Marlyn APRN [Nurse Practitioner] - 09/29/24 10:00 am Prescriptions/Medication Reconciliation: New levothyroxine [Synthroid] 50 mcg Tablet 50 mcg PO DAILYDM 30 Days Qty: 30 0RF Continued ondansetron HCl 4 mg tablet 4 mg PO Q6HP PRN (Reason: Nausea) 30 Days Qty: 30 0RF acetaminophen [Tylenol] 325 mg Tablet 650 mg PO Q6HP PRN (Reason: Pain, Mild) alum-mag hydroxide-simeth [Mylanta Maximum Strength] 400-400-40 mg/5 mL Suspension 30 ml PO TID Discontinued levothyroxine 75 mcg tablet 75 mcg PO DAILY 30 Days Qty: 30 0RF Problem Reconciliation Problems Reviewed?: Yes Patient Discharge Instructions Additional Instructions: Your levothyroxine dose was too high based on your blood work. This was likely causing your dry mouth. Levothyroxine dose was decreased to 50 mcg daily. Follow-up with your PCP for further evaluation and management. Patient Instructions: DI for Small Bowel Obstruction Print Language: Thai Providers Primary Care Provider: Marlyn Daley Admit Provider: Shaquille Mg Attending Provider: Shaquille Mg
--- NOTE | 2024-09-22 14:05 | CARE MANAGER ---
Addendum entered by Shelly Spence RN 09/22/24 14:06: Patient requests bed be from [place]. INformation sent. Original Note: Patient requires positioning of the body in ways not feasible with an ordinary bed in or to changes positions frequently to prevent pain.
[2024-09-22 16:00] VITALS: BP 115/60; PULSE 100; RESP 17; TEMP 36.4; O2SAT 93
--- NOTE | 2024-09-22 17:35 | PC.NURSE ---
Patient to be discharged but unable to stand and pivot to wheelchair. Patient voiced she needed to stay and go back to rehab, md and case management aware. Ok to leave IV out per md. Lung sounds clear.
[2024-09-22 20:00] VITALS: BP 141/76; PULSE 99; RESP 16; TEMP 36.4; O2SAT 99
--- NOTE | 2024-09-22 20:53 | EXP.PN ---
Subjective *Date: 09/22/24 *Time: 20:53 Interval history: Patient has had multiple bowel movements during admission. Initially wanted to go home, but could not ambulate. Anticipate discharge once able to secure bed back at [place]. Exam Data for Last 24 hours Vital signs and Labs for Last 24 Hours: Temp Pulse Resp BP Pulse Ox O2 Del Method 97.6 F 99 H 16 141/76 H 99 Room Air 09/22/24 20:00 09/22/24 20:00 09/22/24 20:00 09/22/24 20:00 09/22/24 20:00 09/22/24 20:00 Laboratory Results - last 24 hr 09/22/24:: WBC 5.8, RBC 3.47 L, Hgb 9.6 L, Hct 31.9 L, MCV 91.9, MCH 27.7, MCHC 30.1 L, RDW 29.8 H*, Plt Count 272, MPV 10.6 H, Neut % (Auto) 71.9, Lymph % (Auto) 19.3, [place] % (Auto) 6.8, Eos % (Auto) 0.5, Baso % (Auto) 0.5, Neut # (Auto) 4.1, Lymph # (Auto) 1.1, [place] # (Auto) 0.4, Eos # (Auto) 0.0, Baso # (Auto) 0.0, Sodium 133 L, Potassium 3.3 L, Chloride 106, Carbon Dioxide 23, Anion Gap 7.3, BUN 24 H D, Creatinine 0.80, Estimated Creat Clear 60, Estimated GFR 71, Est GFR ( Amer) 86, Glucose 84 D, Calcium 7.4 L, Magnesium 2.3, Total Bilirubin 1.0, AST 38 H, ALT 38, Alkaline Phosphatase 205 H, Total Protein 5.0 L, Albumin 2.0 L, Globulin 3.0, Albumin/Globulin Ratio 0.7 L I & O for Last 24 hours: Intake & Output 09/19/24 09/20/24 09/21/24 09/22/24 23:59 23:59 23:59 23:59 Intake Total 700 / 700 720 / 720 Output Total 700 / 1000 300 / 300 Balance 0 / -300 420 / 420 Weight 68.039 kg 76.022 kg 73.437 kg Constitutional Constitutional: no acute distress *Routine HEENT Exam Head: Present normocephalic Eye: Present EOMI and PERRL ENT: Present mucous membranes moist *Routine Neck Exam Neck: Present supple; Absent lymphadenopathy *Routine Respiratory Exam Respiratory: Present CTA bilaterally *Routine Cardiovascular Exam Cardiovascular: Present RRR *Routine Abdominal Exam Abdominal: Present soft and normoactive bowel sounds; Absent tenderness *Routine Extremities Exam Extremities: Present edema; Absent cyanosis or clubbing *Routine Skin Exam Skin: Present warm; Absent rash *Routine Neurological Exam Neurological: Present alert and oriented X3 Assessment and Plan *Assessment and plan (1) SBO (small bowel obstruction): Status: Acute Category: Medical Code(s): K56.609 - Unspecified intestinal obstruction, unspecified as to partial versus complete obstruction (2) Hypothyroid: Status: Chronic Category: Medical Code(s): E03.9 - Hypothyroidism, unspecified (3) Nausea: Status: Acute Category: Medical Code(s): R11.0 - Nausea (4) Failure to thrive: Status: Acute Category: Medical Plan Zaira Smith is a 69-year-old female who presented from her [facility] due to abdominal distention and no bowel movement in 24 hours. She was just discharged on the of last month with resolution of SBO. Discharged to rehab because of weakness and debility. Discussed case with ER, request admission for recurrent SBO. I agreed to admit for further management. Has had 2 bowel movement since admission. Continue to advance diet. Monitor overnight. Anticipate discharge tomorrow. Problems addressed as follows: #SBO #Transaminitis - Clinically improved with slow advancement of diet, has had multiple bowel movements since admission. ? Patient opted to go home today with home health, however upon discharge patient was very weak and unable to ambulate independently. Patient then changed her mind and is willing to go back to [place]. Discussed with case management, coordinating with [place] as she might have lost her bed. - White count normal at 5.8, kidney function normal with creatinine 0.8. - Repeat CBC, CMP, magnesium ordered for the morning - Zofran 4 mg every 6 hours p.o. nausea as needed. #Physical deconditioning ? PT consulted to work with patient during admission. Presented from [facility] where she was receiving skilled therapy, will return to SNF at discharge # Hypothyroidism ? TSH low 0.35. Endorsing chronic dry mouth. Decreased levothyroxine 50 mcg daily. Full code Lovenox 40 mg subcu daily Advancing diet
[2024-09-23 04:00] VITALS: BP 129/74; PULSE 89; RESP 18; TEMP 36.8; O2SAT 98; BMI 31.8
--- NOTE | 2024-09-23 04:15 | PC.NURSE ---
Patient is alert and oriented x4. She was observed to have eyes closed, respirations even and unlabored on room air, and no apparent distress throughout the majority of the night. Abdomen remains distended but was soft, puffy, and non-tender upon palpation. Bowel sounds were hypoactive during auscultation; heart and lung sounds within normal findings. Patient has not had any complaints of nausea/vomiting this shift. Moderate edema was noted in her bilateral lower extremities. Patient requires max assistance during transfers/ambulation due to vast weakness. Brief in place for elimination needs. However, the patient appears to turn in bed with little to no assistance. Scheduled medications administered as appropriately per MAR. She continues to tolerate a regular diet. At this time, the patient is resting in bed without any further complaints. No new needs at this time. Bed alarm on. Call light within reach.
[2024-09-23] MEDS: LEVOTHYROXINE 50MCG (0.05MG) TAB 50 MCG PO (06:19)
[2024-09-23 07:17] LABS: Basophils % 0.2 % (0.1-2.0); Eosinophils % 0.8 % (0.1-12.0); Hematocrit 31.5 % (37.0-47.0); Hemoglobin 9.7 g/dL (12.2-16.2); Immature Granulocytes # 0.08 10^3uL; Immature Granulocytes % 1.6 %; Lymphocytes % 19.6 % (10-50); Mean Corpuscular HGB Conc 30.8 g/dL (31.8-35.4); Mean Corpuscular Hemoglobin 28.4 pg (27.0-31.2); Mean Corpuscular Volume 92.4 fl (81-99); Mean Platelet Volume 9.8 fl (7.4-10.4); Monocytes # 0.4 K/mm3 (0.1-1.0); Monocytes % 7.2 % (1.7-9.3); Neutrophils # 3.5 K/mm3 (1.8-7.8); Neutrophils % 70.6 % (37.0-80.0); Nucleated Red Blood Cells # 0.09 10^3/uL; Nucleated Red Blood Cells % 1.8 %; Platelet Count 261 K/mm3 (142-424); Red Blood Count 3.41 M/mm3 (4.20-5.40); Red Cell Distribution Width-SD 93.6 fL
[2024-09-23 07:22] LABS: Alanine Aminotransferase 37 U/L (12-78); Albumin Level 2.1 g/dl (3.5-5.0); Albumin/Globulin Ratio 0.7 (1.1-1.8); Alkaline Phosphatase 209 U/L (38-126); Anion Gap 3.3 mEq/L (5-15); Aspartate Amino Transferase 38 U/L (14-36); Bilirubin,Total 1.2 mg/dl (0.2-1.3); Blood Urea Nitrogen 27 mg/dl (7-17); Calcium 7.7 mg/dl (8.4-10.2); Carbon Dioxide 24 mmol/L (22.0-30.0); Chloride 108 mmol/L (98-107); Creatinine Clearance Estimated 60 mL/min (50-200); Estimated Glomerular Filt Rate 82 ml/min (>60); GFR (African American) 100 ML/MIN (>60); Globulin 2.9 g/dL (1.3-3.2); Glucose 83 mg/dl (74-100); Potassium 3.3 mmoL/L (3.5-5.1); Sodium 132 mmol/L (136-145)
[2024-09-23 07:30] LABS: Magnesium 2.4 mg/dl (1.6-2.3)
[2024-09-23 07:46] LABS: Red Cell Distribution Width 30.6 % (11.5-17.5)
[2024-09-23 08:00] VITALS: BP 117/73; PULSE 91; RESP 16
[2024-09-23] MEDS: SENNA 8.6MG TABLET 8.6 MG PO (08:34)
--- NOTE | 2024-09-23 12:33 | P.DS_ITS ---
General Admission date:: 09/20/24 Hospital Course Hospital Course Hospital Course: Zaira Smith is a 69-year-old female who presented from her [facility] due to abdominal distention and no bowel movement in 24 hours. She was just discharged on the of last month with resolution of SBO. Discharged to rehab because of weakness and debility. Discussed case with ER, request admission for recurrent SBO. I agreed to admit for further management. Has had 2 bowel movement since admission. Continue to advance diet. Monitor overnight. Anticipate discharge tomorrow. Problems addressed as follows: #SBO #Transaminitis - Clinically improved with slow advancement of diet, has had multiple bowel movements since admission. ? Patient initially opted to go home today with home health, however upon d ischarge patient was very weak and unable to ambulate independently. Patient then changed her mind and is willing to go back to [place]. - Transaminitis significantly improved. No abdominal pain. Likely in the setting of dehydration. #Physical deconditioning ? PT consulted to work with patient during admission. Presented from [facility] where she was receiving skilled therapy, will return to [facility] at discharge #Hypothyroidism ? TSH low 0.35. Endorsing chronic dry mouth, dehydration. Decreased levothyroxine 37.5 mcg daily. ? Will need repeat TFTs in 4 to 6 weeks. Total time spent on discharge: 32 minutes on chart review, counseling, documentation, and direct care with patient. Exam Data for Last 24 hours Vital signs and Labs for Last 24 Hours: Temp Pulse Resp BP Pulse Ox O2 Del Method 98.2 F 91 H 16 117/73 98 Room Air 09/23/24 04:00 09/23/24 08:00 09/23/24 08:00 09/23/24 08:00 09/23/24 04:00 09/23/24 11:00 Laboratory Results - last 24 hr 09/23/24 06:30: Sodium 132 L, Potassium 3.3 L, Chloride 108 H, Carbon Dioxide 24, Anion Gap 3.3 L, BUN 27 H, Creatinine 0.70, Estimated Creat Clear 60, Estimated GFR 82, Est GFR ( Amer) 100, Glucose 83, Calcium 7.7 L, Total Bilirubin 1.2, AST 38 H, ALT 37, Alkaline Phosphatase 209 H, Total Protein 5.0 L , Albumin 2.1 L, Globulin 2.9, Albumin/Globulin Ratio 0.7 L 09/23/24 07:03: WBC 5.0, RBC 3.41 L, Hgb 9.7 L, Hct 31.5 L, MCV 92.4, MCH 28.4, MCHC 30.8 L, RDW 30.6 H*, Plt Count 261, MPV 9.8, Neut % (Auto) 70.6, Lymph % (Auto) 19.6, [place] % (Auto) 7.2, Eos % (Auto) 0.8, Baso % (Auto) 0.2, Neut # (Auto) 3.5, Lymph # (Auto) 1.0, [place] # (Auto) 0.4, Eos # (Auto) 0.0, Baso # (Auto) 0.0, Magnesium 2.4 H I & O for Last 24 hours: Intake & Output 09/20/24 09/21/24 09/22/24 09/23/24 23:59 23:59 23:59 23:59 Intake Total 700 / 700 720 / 820 100 / 100 Output Total 700 / 1000 300 / 300 0 / 0 Balance 0 / -300 420 / 520 100 / 100 Weight 68.039 kg 76.022 kg 73.437 kg 73.595 kg Constitutional Constitutional: no acute distress *Routine HEENT Exam Head: Present normocephalic Eye: Present EOMI and PERRL ENT: Present mucous membranes moist *Routine Neck Exam Neck: Present supple; Absent lymphadenopathy *Routine Respiratory Exam Respiratory: Present CTA bilaterally *Routine Cardiovascular Exam Cardiovascular: Present RRR *Routine Abdominal Exam Abdominal: Present soft and normoactive bowel sounds; Absent tenderness *Routine Extremities Exam Extremities: Present edema; Absent cyanosis or clubbing *Routine Skin Exam Skin: Present warm; Absent rash *Routine Neurological Exam Neurological: Present alert and oriented X3 Results Data Completed and Pending Labs on day of discharge: Labs from last 24 hours 09/23/24 09/23/24 07:03 06:30 WBC 5.0 RBC 3.41 L Hgb 9.7 L Hct 31.5 L MCV 92.4 MCH 28.4 MCHC 30.8 L RDW 30.6 H* Plt Count 261 MPV 9.8 Neut % (Auto) 70.6 Lymph % (Auto) 19.6 [place] % (Auto) 7.2 Eos % (Auto) 0.8 Baso % (Auto) 0.2 Neut # (Auto) 3.5 Lymph # (Auto) 1.0 [place] # (Auto) 0.4 Eos # (Auto) 0.0 Baso # (Auto) 0.0 Sodium 132 L Potassium 3.3 L Chloride 108 H Carbon Dioxide 24 Anion Gap 3.3 L BUN 27 H Creatinine 0.70 Estimated Creat Clear 60 Estimated GFR 82 Est GFR ( Amer) 100 Glucose 83 Calcium 7.7 L Magnesium 2.4 H Total Bilirubin 1.2 AST 38 H ALT 37 Alkaline Phosphatase 209 H Total Protein 5.0 L Albumin 2.1 L Globulin 2.9 Albumin/Globulin Ratio 0.7 L DS: Diagnosis Discharge Diagnosis (1) SBO (small bowel obstruction): Status: Acute Code(s): K56.609 - Unspecified intestinal obstruction, unspecified as to partial versus complete obstruction (2) Hypothyroid: Status: Chronic Code(s): E03.9 - Hypothyroidism, unspecified (3) Nausea: Status: Acute Code(s): R11.0 - Nausea (4) Failure to thrive: Status: Acute Meds Home Medications and Allergies Home Medications ?Medication ?Instructions ?Recorded ?Confirmed ?Type ondansetron HCl 4 mg tablet 4 mg PO Q6HP PRN Nausea 30 days 09/15/24 09/20/24 Rx #30 tabs acetaminophen 325 mg tablet 650 mg PO Q6HP PRN Pain, Mild 09/20/24 09/20/24 History (Tylenol) aluminum-mag hydroxide-simethicone 30 ml PO TID Indigestion 09/20/24 09/20/24 History 400 mg-400 mg-40 mg/5 mL oral susp (Mylanta Maximum Strength) levothyroxine 37.5 mcg capsule 37.5 mcg PO DAILY #30 caps 09/23/24 Rx New Prescriptions to Start Prescriptions: levothyroxine Martin Gutierrez Allergies Allergy/AdvReac Type Severity Reaction Status Date / Time No Known Allergies Allergy Verified 09/06/24 17:32 Discharge Plan Disposition Patient Disposition: [facility] Condition: Fair Discharge Order Discharge Orders: Discharge Order (Routine); Ordered 09/23/24 Ordered By: Martin Gutierrez Follow up Plan Follow up with: Thuy (ED)Marlyn APRN [Nurse Practitioner] - 09/29/24 10:00 am Prescriptions/Medication Reconciliation: New levothyroxine 37.5 mcg capsule 37.5 mcg PO DAILY Qty: 30 0RF Continued ondansetron HCl 4 mg tablet 4 mg PO Q6HP PRN (Reason: Nausea) 30 Days Qty: 30 0RF acetaminophen [Tylenol] 325 mg Tablet 650 mg PO Q6HP PRN (Reason: Pain, Mild) alum-mag hydroxide-simeth [Mylanta Maximum Strength] 400-400-40 mg/5 mL Suspension 30 ml PO TID Discontinued levothyroxine 75 mcg tablet 75 mcg PO DAILY 30 Days Qty: 30 0RF Problem Reconciliation Problems Reviewed?: Yes Patient Discharge Instructions Additional Instructions: Your levothyroxine dose was too high based on your blood work. This was likely causing your dry mouth. Levothyroxine dose was decreased to 50 mcg daily. Follow-up with your PCP for further evaluation and management. Patient Instructions: DI for Small Bowel Obstruction Print Language: Bulgarian Providers Primary Care Provider: Marlyn Daley Admit Provider: Shaquille Mg Attending Provider: Shaquille Mg
--- NOTE | 2024-09-23 12:39 | PC.NURSE ---
Zaira Smith 3Current Medications Acetaminophen (Acetaminophen 325mg Tab) 650 mg PO Q6HP PRN PRN Reason: Mild pain(1-3),fever,headache Stop: 10/20/24 16:42 Levothyroxine Sodium (Levothyroxine 50mcg (0.05mg) Tab) 50 mcg PO DAILYDM ZOE Stop: 10/21/24 06:59 Last Admin: 09/23/24 06:19 Dose: 50 mcg Ondansetron HCl (Ondansetron 4mg Odt) 4 mg SL Q6HP PRN PRN Reason: Nausea Stop: 10/21/24 07:16 Sennosides (Senna 8.6mg Tablet) 8.6 mg PO DAILY ZOE Stop: 10/21/24 08:59 Last Admin: 09/23/24 08:34 Dose: 8.6 mg Sodium Chloride (Sodium Chloride 0.9% 10ml Syr (Rad Only)) 10 ml IV NEEDED PRN PRN Reason: Maintain IV Site Stop: 10/20/24 12:19 Last Admin: 09/20/24 12:20 Dose: 10 ml
--- NOTE | 2024-09-23 13:02 | PC.NURSE ---
report called to ara haney
== END 2024-09-23 13:40 ==
LOC: ER 11:35 → 2ND 14:00
PROVIDERS: Student in an Organized Health Care Education/Training Program; Admitting Provider Internal Medicine Adolescent Medicine; Emergency Provider Student in an Organized Health Care Education/Training Program; PCP Nurse Practitioner; Visit Provider Internal Medicine Adolescent Medicine
DX: K56.600 Partial intestinal obstruction, unspecified as to cause (principal); E03.9 Hypothyroidism, unspecified; R11.0 Nausea; Z79.899 Other long term (current) drug therapy; R74.01 Elevation of levels of liver transaminase levels; R62.7 Adult failure to thrive; Z68.31 Body mass index [BMI] 31.0-31.9, adult
CPT/HCPCS: 36415; 74177; 80053; 83605; 83690; 83735; 84484; 85025; 85610; 85730; 93005; 97163; 97530; 99291; G0378; J1650; J1938; J7120; Q9967

== ENCOUNTER 2024-10-07 09:19 | Emergency (ER) | payer MEDICARE, SELFPAY ==
[2024-10-07] VITALS (11 sets, daily range): BP systolic 85–119; BP diastolic 44–70; PULSE 74–89; RESP 13–20; TEMP 36.1–36.6; O2SAT 96–100; BMI 24.3
--- NOTE | 2024-10-07 09:23 | CT_ITS ---
FINAL REPORT TECHNIQUE: Thin section axial CT with contrast with multiplanar reconstruction This study was performed with techniques to keep radiation doses as low as reasonably achievable, (ALARA). Individualized dose reduction techniques using automated exposure control or adjustment of mA and/or kV according to the patient's size were employed. CLINICAL HISTORY: Sepsis, severe abd pain and CP COMPARISON: None FINDINGS: CTA CHEST: There is no evidence of dissection or aneurysm seen in the thoracic aorta. The great vessel origins are patent. There are moderate bilateral pulmonary emboli with a nonocclusive saddle component. The right ventricular to left ventricular ratio is less than 1, without right heart strain. No pulmonary mass or infiltrate is present. Basilar scarring is present. No evidence of pneumonia or pleural effusion is identified. No mediastinal or hilar adenopathy is present. IMPRESSION: Moderate to large bilateral pulmonary emboli without evidence of right heart strain. No evidence of acute lung infiltrate or effusion. Reviewed, Interpreted and Dictated by Ramos Lynn MD Transcribed by Mahogany Verde Authenticated and [facility]
--- NOTE | 2024-10-07 09:23 | CT_ITS ---
FINAL REPORT TECHNIQUE: Pre-and postcontrast images of the abdomen and pelvis were performed by computed tomography. Extensive 3-D reconstruction images were performed. A CTA was performed. This study was performed with techniques to keep radiation doses as low as reasonably achievable (ALARA). Individualized dose reduction techniques using automated exposure control or adjustment of mA and/or kV according to the patient's size were employed. CLINICAL HISTORY: Sepsis, severe abd pain and CP COMPARISON: CT abdomen and pelvis 09/20/2024 FINDINGS: ABDOMEN AND PELVIS: The lung bases are clear. No adrenal masses are identified. Fatty infiltration of the liver is present. The spleen and pancreas are unremarkable. There is a left renal cyst in the upper pole. The gallbladder is unremarkable in appearance. There is wall thickening in distal jejunal and ileal small bowel loops, most likely secondary to enteritis although ischemia is not excluded. No free fluid is noted in the abdomen or pelvis. The uterus has been surgically resected. CTA: The abdominal aorta is proper caliber. No aneurysm or dissection is identified. The SMA, celiac axis, and DIANA are widely patent. There is no significant stenosis. The renal arteries are widely patent bilaterally. The common and external iliac vessels are widely patent. IMPRESSION: No significant vascular abnormality in the abdomen or pelvis. Wall thickening and distal jejunal and ileal small bowel loops, most likely secondary to enteritis although ischemia is not excluded. Fatty infiltration of the liver. Reviewed, Interpreted and Dictated by Ramos Lynn MD Transcribed by Mahogany Verde Authenticated and [facility]
--- NOTE | 2024-10-07 09:30 | ECG_ITS ---
APPROVED REPORT Exam: Resting ECG HR:94 bpm ECG Measurements Heart Rate 94 AXES TX 177 P 67 QRSd 90 QRS -60 QT 361 T 72 QTc 413 Conclusion Sinus rhythm Electronically signed by : JOHNATHAN VITALE, 10/08/2024 18:37:55
--- NOTE | 2024-10-07 10:03 | HMH.EDGENADL ---
Discharge Plan Disposition Patient Disposition: Xfer Short-Term Hosp Chief Complaint: Weakness Prescriptions Prescriptions: No Action ondansetron HCl 4 mg tablet 4 mg PO Q6HP PRN (Reason: Nausea) 30 Days Qty: 30 0RF acetaminophen [Tylenol] 325 mg Tablet 650 mg PO Q6HP PRN (Reason: Pain, Mild) alum-mag hydroxide-simeth [Mylanta Maximum Strength] 400-400-40 mg/5 mL Suspension 30 ml PO TID levothyroxine 37.5 mcg capsule 37.5 mcg PO DAILY Qty: 30 0RF Referrals Follow up/Referrals: Provider,Referral, MD [Primary Care Provider] - See instructions Clinical Impressions Clinical Impression: Acute saddle pulmonary embolism, Sepsis, Bilateral pulmonary embolism, EDDI (acute kidney injury), Cerebral ventriculomegaly Stand Alone Forms Stand Alone Forms: Transfer Record - ED Print Language Print Language: Cuban Discharge ED Provider: Surinder Jerry General Adult HPI General Chief complaint: Weakness Stated complaint: Fall Time Seen by Provider: 10/07/24 09:20 Mode of Arrival: EMS Source of Information: EMS and Medical Record Description of Symptoms (Recalled from ER Triage Doc. by RN): pt is here from [facility] today for decrease urine output, gen weakness, decreased loc and low bp, pt is mottled all over and has +4 ble edema History of Present Illness HPI narrative: Please note that above description of symptoms, in this electronic medical record under categorization of recalled from ER triage doctor by RN are reflective of an initial nursing assessment, however, is not reflective of my full history and physical exam that was personally taken and clarified. Consequentially, this preceding description of symptoms, which may include the patient's categorized chief complaint in the EMR, do not reflect my personal clinical impression, and the ultimate description of history of present illness and patient stated complaints should be deferred to this section of the note. Unless stated otherwise or congruent with this section of the note, additional signs, symptoms, or incongruence should be interpreted as inaccurate with my clinical impression. Related Data Home Medications ?Medication ?Instructions ?Recorded ?Confirmed acetaminophen 325 mg tablet 650 mg PO Q6HP PRN Pain, Mild 09/20/24 09/20/24 (Tylenol) aluminum-mag hydroxide-simethicone 30 ml PO TID Indigestion 09/20/24 09/20/24 400 mg-400 mg-40 mg/5 mL oral susp (Mylanta Maximum Strength) Previous Rx's ?Medication ?Instructions ?Recorded ondansetron HCl 4 mg tablet 4 mg PO Q6HP PRN Nausea 30 days 09/15/24 #30 tabs levothyroxine 37.5 mcg capsule 37.5 mcg PO DAILY #30 caps 09/23/24 Allergies Allergy/AdvReac Type Severity Reaction Status Date / Time No Known Allergies Allergy Verified 09/06/24 17:32 [facility] Disclaimer: The information contained in this section may have been updated after the patient was seen, as this information can be updated by other users. Surgical History Hx of partial thyroidectomy History of surgery on lower extremity Hx of appendectomy Family History Other Lung cancer Renal failure Social History Smoking Status: Never smoker alcohol intake: never current occupational status: unemployed Travel in the last 8 weeks?: None Other Medical History Have you received the Flu Vaccine for this season: No Have you received the Pneumonia Vaccine: No ROS Obtained: Yes unobtainable due to mental status Physical Exam General General appearance: other (Very clinically ill-appearing) Head Head exam: atraumatic and normocephalic Eye Eye exam: Present normal appearance, PERRL and EOMI ENT ENT exam: Present mucous membranes dry Neck Neck exam: Present normal inspection, full ROM and trachea midline Respiratory Respiratory exam: Absent respiratory distress, wheezes, stridor, accessory muscle use or prolonged expiratory phase Cardiovascular Cardiovascular exam: Present regular rate, normal rhythm and other (Pulses equal symmetric in upper and lower extremities) Abdominal Exam Abdominal exam: Present soft and tenderness; Absent distention, guarding, rebound, rigidity or pulsatile mass Abdominal tenderness: Present diffuse and mild Extremities Exam Extremities exam: Present edema Neurological Exam Neurological exam: Present alert and CN II-XII intact; Absent oriented X3 or motor sensory deficit Skin Skin exam: Present dry, cyanosis and mottled; Absent warm, diaphoresis or erythema Medical Decision Making Medical Records Medical records reviewed: Yes I reviewed the patient's medical records. Screening: Per USPSTF and CDC recommendations, given the prevalence of disease in our region, it is our hospital?s policy to screen for HIV and viral Hepatitis for all patients aged 18 and over and those with ongoing risk factors. Samuel Inquiry Pt receiving controlled substance: No Samuel was queried for this patient: No Vital Signs: 10/07/24 09:45 10/07/24 09:53 10/07/24 10:00 Temperature 97.0 F L Temperature Source Rectal Pulse Rate 86 87 Pulse Rate [Left Radial] 89 Respiratory Rate 18 18 15 Blood Pressure 85/44 L 101/66 L Blood Pressure [Right Arm] 85/44 L Blood Pressure Mean [Right Arm] 57 02 Sat by Pulse Oximetry 100 100 100 Oxygen Delivery Method Room Air Nasal Cannula Room Air Oxygen Flow Rate (LPM) 4 10/07/24 10:31 10/07/24 11:00 10/07/24 11:24 Temperature Temperature Source Pulse Rate 88 87 82 Pulse Rate [Left Radial] Respiratory Rate 17 17 17 Blood Pressure 101/67 L 97/58 L 119/57 L Blood Pressure [Right Arm] Blood Pressure Mean [Right Arm] 02 Sat by Pulse Oximetry 100 96 100 Oxygen Delivery Method Room Air Room Air Oxygen Flow Rate (LPM) 10/07/24 11:30 10/07/24 12:30 Temperature Temperature Source Pulse Rate 82 87 Pulse Rate [Left Radial] Respiratory Rate 15 14 Blood Pressure 119/64 95/70 L Blood Pressure [Right Arm] Blood Pressure Mean [Right Arm] 02 Sat by Pulse Oximetry 100 100 Oxygen Delivery Method Room Air Room Air Oxygen Flow Rate (LPM) Lab Data Lab Results 10/07/24 11:02: WBC 5.0, RBC 3.03 L, Hgb 10.1 L, Hct 31.8 L, MCV 105.0 H, MCH 33.3 H, MCHC 31.8, RDW 23.9 H, Plt Count 223, MPV 10.5 H, Neut % (Auto) 81.2 H, Lymph % (Auto) 11.4, Loving % (Auto) 3.8, Eos % (Auto) 0.2, Baso % (Auto) 1.6, Neut # (Auto) 4.1, Lymph # (Auto) 0.6 L, Loving # (Auto) 0.2, Eos # (Auto) 0.0, Baso # (Auto) 0.1, PT 11.8, INR 1.07, APTT 26.8, Sodium 130 L, Potassium 4.8, Chloride 103, Carbon Dioxide 21 L, Anion Gap 10.8, BUN 52 H, Creatinine 1.10 H, Estimated Creat Clear 52, Estimated GFR 49 L, Est GFR ( Amer) 59, Glucose 122 H, Lactate 0.9, Calcium 7.7 L, Magnesium 5.0 H, Total Bilirubin 1.0, AST 46 H, ALT 29, Alkaline Phosphatase 255 H, Total Creatine Kinase 23 L, Troponin I < 0.01, NT-Pro-B Natriuret Pep 1220 H, Total Protein 5.4 L, Albumin 2.2 L, Globulin 3.2, Albumin/Globulin Ratio 0.7 L, Lipase 17 L, Procalcitonin 1.31, TSH 0.94, Thyroxine (T4) 2.3 L 10/07/24 11:30: VBG pH 7.42 H, VBG pCO2 28.8 L, VBG pO2 126.7 H, VBG HCO3 18.4 L, VBG Total CO2 19.3 L, VBG O2 Saturation 98.1 H, VBG Base Excess -6.0 L, VBG Lactic Acid 2.6 H 10/07/24 12:03: Urine Color Brown, Urine Appearance Turbid, Urine pH 5.5, Ur Specific [place] 1.020, Urine Protein 2+ A, Urine Glucose (UA) Negative, Urine Ketones Trace, Urine Blood 3+ A, Urine Nitrate Positive A, Urine Bilirubin 3+ A, Urine Urobilinogen 4.0, Ur Leukocyte Esterase Trace, Urine RBC 50-100, Urine WBC 3-5, Ur Squamous Epith Cells 5-10, Urine Bacteria 2+, Hyaline Casts 5-10 10/07/24 11:02 10/07/24 11:02 Orders (Tests/Meds): ED MEDICATIONS Generic Name Dose Route Start Last Admin Trade Name Freq PRN Reason Stop Dose Admin Heparin Sodium/Dextrose 500 mls @ 25 mls/hr 10/07/24 12:45 10/07/24 12:52 Heparin 25,000 Units In D5w 500ml Premix IV 11/06/24 12:44 25 mls/hr .Q20H ZOE Administration 1,250 UNITS/HR Miscellaneous 1 each 10/07/24 12:45 10/07/24 12:59 Heparin Drip Consult NOTAPPLIC 11/06/24 12:44 1 each CONSULT PHARMACY ZOE Administration Discontinued Medications Generic Name Dose Route Start Last Admin Trade Name Daltonq PRN Reason Stop Dose Admin Heparin Sodium (Porcine) 5,000 unit 10/07/24 12:27 10/07/24 12:32 Heparin Sodium 5,000 Unit/Ml Vial IV 10/07/24 12:28 5,000 unit ONCE ONE Administration Piperacillin Sod/Tazobactam 100 mls @ 200 mls/hr 10/07/24 09:22 10/07/24 10:55 Sod 4.5 gm/ Sodium Chloride IV 10/07/24 09:51 200 mls/hr ONCE ONE Administration Lactated Ringer's 2,250 mls @ 1,125 mls/hr 10/07/24 09:22 10/07/24 10:56 Lactated Ringer's 1000 Ml Bag 30 ml/kg infuse over 2 hr (2250 ml) 10/07/24 11:21 1,125 mls/hr IV Administration .Q2H ONE Vancomycin/PEG/NADA/Lysine/Water 1.25 gm in 250 mls @ 125 mls/hr 10/07/24 09:45 10/07/24 10:56 Vancomycin 1.25gm/250ml (Peg) Premix IV 10/07/24 11:44 125 mls/hr ONCE ONE Administration Iopamidol 160 ml 10/07/24 11:45 10/07/24 11:47 Iopamidol-370 (76%);100ml Bottle IV 10/07/24 11:46 160 ml ONCE ONE Administration Miscellaneous 1 each 10/07/24 09:30 10/07/24 11:00 Vancomycin Consult Request NOTAPPLIC 11/06/24 09:29 1 each CONSULT PHARMACY [facility] Administration Sodium Chloride 10 ml 10/07/24 11:45 10/07/24 11:47 Sodium Chloride 0.9% 10ml Syr (Rad Only) IV 10/07/24 11:46 10 ml ONCE ONE Administration Sodium Chloride 100 ml 10/07/24 11:45 10/07/24 11:47 0.9 % Sodium Chloride 50 Ml Vial IV 10/07/24 11:46 100 ml ONCE ONE Administration ORDERS Category Date Time Status CT angio abdomen pelvis Stat Cat Scan 10/07/24 09:[address] angio head Stat Cat Scan 10/07/24 10:[address] angio neck Stat Cat Scan 10/07/24 10:[address] head/brain wo con Stat Cat Scan 10/07/24 10:52 Completed CTA Chest [CT angio chest - dissection] Stat Cat Scan 10/07/24 09:23 Completed CXR --portable [XR chest portable] Stat Exams 10/07/24 10:52 Completed CK [Creatine Kinase] Stat Lab 10/07/24 11:02 Completed Complete Blood Count Auto Diff Stat Lab 10/07/24 11:02 Completed Comprehensive Metabolic Panel Stat Lab 10/07/24 11:02 Completed Hemoglobin A1C Stat Lab 10/07/24 11:02 Received Lactic Acid Stat Lab 10/07/24 11:02 Completed Lipase Stat Lab 10/07/24 11:02 Completed Magnesium Stat Lab 10/07/24 11:02 Completed NT Pro Brain Natriuretic Pep. Stat Lab 10/07/24 11:02 Completed PT INR [Prothrombin Time INR] Stat Lab 10/07/24 11:02 Completed PTT [Activated Partial Thrombo Time] Stat Lab 10/07/24 11:02 Completed Procalcitonin Stat Lab 10/07/24 11:02 Completed T4 (Thyroxine) Stat Lab 10/07/24 11:02 Completed TSH [Thyroid Stimulating Hormone] Stat Lab 10/07/24 11:02 Completed Troponin I Q3H Lab 10/07/24 12:54 Received Troponin I Q3H Lab 10/07/24 15:30 Ordered Troponin I Stat Lab 10/07/24 11:02 Completed Urinalysis and Microscopic Stat Lab 10/07/24 11:18 Ordered Urinalysis and Microscopic Stat Lab 10/07/24 12:03 Completed Blood Culture Stat Micro 10/07/24 11:02 Received Urine Culture Stat Micro 10/07/24 12:03 Received Venous Blood Gas Stat RT 10/07/24 11:30 Completed Medical Decision Narrative: This is a 69-year-old female history of hypertension, hyperlipidemia, hypothyroidism presenting with altered mental status. Patient was called out by EMS as altered mental status, unable to interact much. EMS arrived at [facility], patient altered, glucose just above 100. Brought her in for further evaluation. On arrival, patient largely unable to articulate thoughts, but able to answer yes and no questions, where she is painful. Lungs are clear, cardiac exam without murmurs gallops or rubs. Lower extremity edema bilaterally. Pulses equal and symmetric in upper and lower extremities, but she does have acral cyanosis of the hands and feet, mottling over bilateral upper and lower extremities. Lungs are clear bilaterally. Abdomen is soft, but patient groans when being pushed on in a general sense. GCS 13, opens eyes to voice. Not oriented. Differential includes intracranial bleed, sepsis, bacteremia, urinary tract infection, pneumonia, ACS, NE, metabolic abnormality, endocrinologic abnormality, PE, dissection, CVA, intoxication, withdrawal, among others. History was obtained with patient and EMS. Patient placed on continuous cardiac monitoring and continuous pulse ox with initial blood pressure 85/44, heart rate 86, saturation 100% on room air. Independent interpretation of EKG shows sinus rhythm 94 bpm with NJ 177, QRS 90, QTc 413. Leftward axis and no acute ischemic changes. Unable to obtain peripheral IV access. Ultrasound was used for IV guidance. On ultrasound evaluation, patient has clotted off nearly all of her deep and superficial veins in her upper and lower extremities. Attempted left lower extremity femoral vein CVC, unable to be placed due to complete thrombosis of bilateral femoral veins. While cleaning patient with chlorhexidine scrub, developed petechiae in her right side of her neck. Concern for coagulopathy. Right IJ triple-lumen 7 Ugandan catheter placed. Confirmatory x-ray was obtained and in place. No pneumothorax. Patient was given sepsis fluid bolus and antibiotics for symptomatic management and correction of underlying abnormalities. Workup independently interpreted and significant for nonactionable CBC with normal platelets, stable hemoglobin and normal white blood cell count. Coags normal VBG with metabolic acidosis with respiratory compensation pH 7.42/CO2 28/bicarb 18/lactate 2.6. Hyponatremic 130, EDDI with creatinine 1.1 and BUN 52. Patient's LFTs only mildly elevated. Troponin negative, BNP elevated at 1220 likely secondary to right heart strain. Independent interpretation of patient's imaging with ventriculomegaly with no effacement of the sulci. No intracranial hemorrhage. CTAs of the head and neck without acute cause for CVA. CTA of the chest with saddle pulmonary embolus, bilateral segmental PEs with no obvious consolidation. 1:1 right heart or left heart ratio. No pneumothorax. CTA of the abdomen pelvis with ileal and jejunal edema consistent with either enteritis or ischemia. Have to favor ischemia in this clinical context given the number of clots that she has. [facility] contacted, on divert. [facility] contacted, on divert. [facility] contacted and case was discussed at length with Dr. Roy initially, recommended ED to ED transfer instead of ED to ICU. Dr. Farrell at [facility] ED contacted and case was discussed at length, patient graciously accepted for transfer. Because patient high risk for clinical decompensation if discharged, deemed appropriate for transfer and inpatient admission. Results were relayed to patient who voiced understanding and patient was agreeable to transfer, inpatient admission, and management. Patient was graciously accepted and transferred to [facility] for further definitive management, under Dr. Hernández. Director Of Intelligence disclaimer Much of this encounter note is an electronic financial services education consultant spoken language to printed text. Electronic financial services education consultant of the spoken language may permit errors. Although I have reviewed the note, some errors may still exist. Procedures Central Line Placement Right IJ: Time Out Performed: Yes Patient Placed on Monitor/Pulse Ox: Yes MD Prep: mask, gown and gloves Central Line Prep: Chlorhexidine scrub Local Anesthetic: lidocaine 1% Amount of anesthesia used (mL): 5 Ultrasound Used for Placement: Yes Central Line Lumen Inserted: triple Post Procedure: sutured in place, good blood return, all ports aspirated, flushed, capped and sterile dressing applied Post Procedure X-Ray: tip of catheter in good position and no pneumothorax seen Patient Tolerated Procedure: well and no complications Complications: none Limited Ultrasound Indication:: Limited DVT ultrasound Indication: Limited compression ultrasonography of the bilateral lower extremity was performed to evaluate for non-compressibility of the deep veins in the patient. The ultrasound was performed with the following indications, as noted in the H&P: Bilateral lower extremity swelling, inability to obtain IV access Identified structures: Bilateral common femoral vein, femoral vein, popliteal vein were examined. Ulnar vein, radial vein, cephalic vein, basilic vein, axillary vein. Findings: Lower Extremity: Left CFV: Noncompressible Left FV noncompressible Left Popliteal vein: Noncompressible Impression: Complete thrombosis of left lower extremity veins on left lower extremity DVT ultrasound. Images were saved to permanent archive The study was technically adequate CPT: 14412-46-VH 82829-91-[id number] 30641-80 (complete bilateral study) This study was performed by me, and I personally interpreted all images/videos. Based on my clinical judgement, these images were adequate and did not necessitate further imaging Views:: Ultrasound-guided line placement Indication: - Difficult IV access, superficial and deep venous thrombosis in extremities Identified structures: - Right neck Location/access site: - Right IJ Vessel patency: - Patent Direct visualization? - Yes Impression: Successful placement of triple-lumen right IJ 7 Ugandan catheter under direct ultrasound guidance Images were saved to permanent archive The study was technically adequate CPT Codes: Venipuncture: 76445-12 Age <3 yo: 52654-09 Age >3yo: 82658-46 Central line <5 yo: 68496-44 Central line >5 yo: 00380-25 This study was performed by me, and I personally interpreted all images/videos. Based on my clinical judgement, these images were adequate and did not necessitate further imaging Critical Care Critical Care Time Critical Care Time: Yes (sepsis, Cardiac, respiraotry) Attestation: On 10/07/24, the high probability of a clinically significant, sudden or life threatening deterioration of the following system(s) required my full and direct attention, intervention and personal management. The time I documented below is in addition to time spent performing reported procedures but includes the following listed in this critical care notation. Total Time Total Critical Care Time: 120
--- NOTE | 2024-10-07 10:52 | XR_ITS ---
FINAL REPORT TECHNIQUE: Single view chest CLINICAL HISTORY: AMS, DIC s/p central line COMPARISON: 09/15/2024 FINDINGS: A single view of the chest was obtained. Right IJ central venous catheter terminates in the right atrium. The heart and mediastinum are within normal limits. There is mild right base atelectasis which is overall improved. There is no pneumothorax. There is a moderate size hiatal hernia. IMPRESSION: Right IJ central venous catheter with the tip in the right atrium. No pneumothorax. Reviewed, Interpreted and Dictated by Ramos Lynn MD Transcribed by Michelle Guzman Authenticated and [facility]
--- NOTE | 2024-10-07 10:52 | CT_ITS ---
FINAL REPORT CLINICAL HISTORY: AMS, DIC COMPARISON: None FINDINGS: CT NECK ANGIO, WITHOUT AND WITH CONTRAST TECHNIQUE: Thin section axial CT with contrast with multiplanar 3D MIP reconstruction. This study was performed with techniques to keep radiation doses as low as reasonably achievable, (ALARA). Individualized dose reduction techniques using automated exposure control or adjustment of mA and/or kV according to the patient's size were employed. NASCET criteria and technique was utilized during interpretation. FINDINGS: Aortic arch: Arch shows no significant narrowing. Great vessel origins are widely patent. Right carotid: No significant stenosis is seen of the cervical common or internal carotid artery. Left carotid: No significant stenosis is seen of the cervical common or internal carotid artery. Vertebrals: The vertebral arteries are codominant. No significant stenosis is present. IMPRESSION: No significant stenosis of the cervical carotid or vertebral arteries This study was performed using automated techniques to achieve radiation exposure as low as reasonably Reviewed, Interpreted and Dictated by Ramos Lynn MD Transcribed by Mahogany Verde Authenticated and [facility]
--- NOTE | 2024-10-07 10:52 | CT_ITS ---
FINAL REPORT TECHNIQUE: Noncontrast exam This study was performed with techniques to keep radiation doses as low as reasonably achievable, (ALARA). Individualized dose reduction techniques using automated exposure control or adjustment of mA and/or kV according to the patient''s size were employed. CLINICAL HISTORY: AMS, DIC LIMITED HX FINDINGS: There is moderate generalized atrophy. There is ventricular enlargement, normal pressure hydrocephalus is not excluded. There is no hemorrhage or edema. There are multiple bilateral subependymal nodules which can be seen with tuberous sclerosis or moura matter heterotopia, neoplastic etiology for these nodules is unlikely given multiplicity. IMPRESSION: No acute intracranial abnormality. Moderate hydrocephalus, NPH is not excluded. Multiple subependymoma nodules with differential as above. Reviewed, Interpreted and Dictated by Ramos Lynn MD Transcribed by Bree Wilcox Authenticated and . [facility]
--- NOTE | 2024-10-07 10:52 | CT_ITS ---
FINAL REPORT CLINICAL HISTORY: AMS, DIC FINDINGS: CTA HEAD TECHNIQUE: Thin section axial CT with contrast with 3D MIP reconstruction This study was performed with techniques to keep radiation doses as low as reasonably achievable, (ALARA). Individualized dose reduction techniques using automated exposure control or adjustment of mA and/or kV according to the patient's size were employed. FINDINGS: No aneurysm is seen. Major intracranial vessels are patent without significant stenosis. . 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 Recommend nonemergent MRI of the head follow-up for further evaluation. IMPRESSION: No intracranial vascular abnormality is identified. 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 Recommend nonemergent MRI of the head for further evaluation. This study was performed using automated techniques to achieve radiation exposure as low as reasonably achievable Reviewed, Interpreted and Dictated by Ramos Lynn MD Transcribed by Mahogany Verde Authenticated and [facility]
[2024-10-07] MEDS: PIPERACILLIN/TAZO 4.5 GM in 0.9 % SODIUM CHLORIDE 100 ML IV (10:55)
[2024-10-07] MEDS: LACTATED RINGERS 1000ML 2,250 ML 1125 ML IV (10:56)
[2024-10-07] MEDS: VANCOMYCIN/WATER FOR INJ (PEG) 1.25 GM/250 ML PIGGYBACK IV (10:56)
[2024-10-07] MEDS: VANCOMYCIN CONSULT REQUEST 1 EACH NOTAPPLIC (11:00)
[2024-10-07 11:12] LABS: Basophils # 0.1 K/mm3 (0-0.2); Basophils % 1.6 % (0.1-2.0); Eosinophils % 0.2 % (0.1-12.0); Hematocrit 31.8 % (37.0-47.0); Hemoglobin 10.1 g/dL (12.2-16.2); Immature Granulocytes # 0.09 10^3uL; Immature Granulocytes % 1.8 %; Lymphocytes # 0.6 K/mm3 (0.7-4.5); Lymphocytes % 11.4 % (10-50); Mean Corpuscular HGB Conc 31.8 g/dL (31.8-35.4); Mean Corpuscular Hemoglobin 33.3 pg (27.0-31.2); Mean Platelet Volume 10.5 fl (7.4-10.4); Monocytes # 0.2 K/mm3 (0.1-1.0); Monocytes % 3.8 % (1.7-9.3); Neutrophils # 4.1 K/mm3 (1.8-7.8); Neutrophils % 81.2 % (37.0-80.0); Nucleated Red Blood Cells # 0.18 10^3/uL; Nucleated Red Blood Cells % 3.6 %; Platelet Count 223 K/mm3 (142-424); Red Blood Count 3.03 M/mm3 (4.20-5.40); Red Cell Distribution Width 23.9 % (11.5-17.5); Red Cell Distribution Width-SD 91.1 fL
[2024-10-07 11:24] LABS: Alanine Aminotransferase 29 U/L (12-78); Albumin Level 2.2 g/dl (3.5-5.0); Albumin/Globulin Ratio 0.7 (1.1-1.8); Alkaline Phosphatase 255 U/L (38-126); Anion Gap 10.8 mEq/L (5-15); Aspartate Amino Transferase 46 U/L (14-36); Blood Urea Nitrogen 52 mg/dl (7-17); Calcium 7.7 mg/dl (8.4-10.2); Carbon Dioxide 21 mmol/L (22.0-30.0); Chloride 103 mmol/L (98-107); Creatine Kinase 23 U/L (30-135); Creatinine Clearance Estimated 52 mL/min (50-200); Estimated Glomerular Filt Rate 49 ml/min (>60); GFR (African American) 59 ML/MIN (>60); Globulin 3.2 g/dL (1.3-3.2); Glucose 122 mg/dl (74-100); Potassium 4.8 mmoL/L (3.5-5.1); Sodium 130 mmol/L (136-145); Total Protein,Serum 5.4 g/dl (6.3-8.2)
[2024-10-07 11:25] LABS: Lipase 17 U/L (23-300)
[2024-10-07 11:26] LABS: Activated Partial Thrombo Time 26.8 seconds (22.8-30.6)
[2024-10-07 11:27] LABS: Lactic Acid 0.9 mmol/L (0.7-2.1)
[2024-10-07 11:34] LABS: NT Pro Brain Natriuretic Pep. 1220 pg/mL (0-125)
[2024-10-07 11:35] LABS: INR 1.07 (0.9-1.1); Prothrombin Time 11.8 seconds (10.1-12.5)
[2024-10-07 11:36] LABS: VBG HCO3 18.4 mmol/L (23-30); VBG Oxygen Saturation 98.1 % (50-70); VBG PCO2 28.8 mmol/L (35-51); VBG PH 7.42 mmol/L (7.31-7.41); VBG PO2 126.7 mmol/L (28-40); VBG Total CO2 19.3 mmol/L (23-27)
[2024-10-07 11:38] LABS: Lactate Venous 2.6 mmol/L (0.4-2.0)
[2024-10-07 11:40] LABS: Troponin I < 0.01 ng/ml (0.00-0.034)
[2024-10-07 11:41] LABS: Procalcitonin 1.31 ng/mL (0.0-2.0)
[2024-10-07 11:42] LABS: T4 (Thyroxine) 2.3 ug/dl (5.53-11.0)
[2024-10-07] MEDS: IOPAMIDOL-370 (76%);100ML BOTTLE 160 ML IV (11:47)
[2024-10-07] MEDS: 0.9 % SODIUM CHLORIDE 50 ML VIAL 100 ML IV (11:47)
[2024-10-07] MEDS: SODIUM CHLORIDE 0.9% 10ML SYR (RAD ONLY) 10 ML IV (11:47)
[2024-10-07 11:56] LABS: Thyroid Stimulating Hormone 0.94 uIU/mL (0.465-4.68)
[2024-10-07 12:12] LABS: Microscopic, Urine URINE MICROSCOPIC (MICROSCOPIC)
[2024-10-07 12:17] LABS: Appearance,Urine TURBID (Clear); Blood, Urine 3+ (Negative); Color,Urine BROWN (Yellow); Glucose,Urine (UA) Negative (Negative); Ketones,Urine TRACE (Negative); Leukocyte Esterase,Urine TRACE (Negative); Nitrate,Urine POSITIVE (Negative); PH,Urine 5.5 (5.0-8.5); Protein,Urine 2+ (Negative)
[2024-10-07 12:26] LABS: Bilirubin,Urine 3+ (Negative); RBC,Urine 50-100 #/hpf (0-3)
[2024-10-07 12:27] LABS: Bacteria,Urine 2+ /lpf
[2024-10-07] MEDS: HEPARIN SODIUM 5,000 UNIT/ML VIAL 5000 UNIT IV (12:32)
--- NOTE | 2024-10-07 12:39 | PC.NURSE ---
Called [facility] per Dr Jerry for this pt due to [facility] having a wait list. Dr Jerry is speaking with [facility] now.
[2024-10-07] MEDS: HEPARIN 25,000 UNITS/D5W 500 ML 25 UNIT IV (12:52)
[2024-10-07] MEDS: HEPARIN DRIP CONSULT 1 EACH NOTAPPLIC (12:59)
[2024-10-07 13:46] LABS: Troponin I < 0.01 ng/ml (0.00-0.034)
[2024-10-07] MEDS: TENECTEPLASE 50MG VIAL 18 MG IV (14:03)
[2024-10-07 15:38] LABS: Reflex Lactic Add Lactic Reflex
[2024-10-08 15:21] LABS: Hemoglobin A1C < 4.2 % (4.0-6.0)
== END 2024-10-07 14:04 | disposition short-term general hospital (02) ==
PROVIDERS: Emergency Provider Emergency Medicine
DX: A41.9 Sepsis, unspecified organism (principal); I26.92 Saddle embolus of pulmonary artery without acute cor pulmonale; I26.94 Multiple subsegmental thrombotic pulmonary emboli without acute cor pulmonale; I82.402 Acute embolism and thrombosis of unspecified deep veins of left lower extremity; G93.89 Other specified disorders of brain; I95.9 Hypotension, unspecified; E87.21 Acute metabolic acidosis; E87.1 Hypo-osmolality and hyponatremia; R74.02 Elevation of levels of lactic acid dehydrogenase [LDH]; N17.9 Acute kidney failure, unspecified; I10 Essential (primary) hypertension; E78.5 Hyperlipidemia, unspecified
CPT/HCPCS: 36556; 51702; 70450; 70496; 70498; 71045; 71275; 74174; 80053; 81001; 82550; 82803; 83036; 83605; 83690; 83735; 83880; 84145; 84436; 84443; 84484; 85025; 85610; 85730; 87040; 87086; 93005; 96365; 96366; 96367; 96375; 96376; 99291; 99292; C1751; J1644; J2543; J3101; J3372; J7120; Q9967